=== PATIENT | female | born 1960 | race Caucasian/White ===

== ENCOUNTER 2021-04-02 00:17 | Inpatient (IN) | payer OTHER ==
[~2021-04-02] VITALS: Ht 152.4 cm; Wt 45.8 kg
[2021-04-02] MEDS ORDERED: ALBU1.25 NEB (00:25)
[2021-04-02] MEDS ORDERED: PROV108A INH (00:25)
[2021-04-02] MEDS ORDERED: dexameTHASONE 20MG/5ML VIAL (J1100 PER 1MG) IV ONE (01:10)
--- NOTE | 2021-04-02 01:24 | REPVR ---
PROCEDURE INFORMATION: Exam: XR Chest Exam date and time: 04/02/2021 12:52 AM Age: 60 years old Clinical indication: Cough and dyspnea. TECHNIQUE: Imaging protocol: XR of the chest. Views: 1 view. COMPARISON: No relevant prior studies available. FINDINGS: Lungs: Unremarkable. No consolidation. No pulmonary edema. Pleural spaces: Unremarkable. No pleural effusion. No pneumothorax. Heart/Mediastinum: Unremarkable. No cardiomegaly. Vasculature: There are atherosclerotic calcifications of the aortic arch. Bones/joints: Unremarkable. IMPRESSION: No acute findings. Electronically signed by: Jose Armando Loya On 04/02/2021 01:24:08 AM
[2021-04-02] MEDS: COMBIVENT RESPIMAT 100-20MCG INHALER 4GM INH SCH ×3 (01:31→02:05)
[2021-04-02 01:39] LABS: BASO # 0.1 10^3/uL (0.0-0.2); BASO % 0.6 % (0.0-1.0); EOS # 0.2 10^3/uL (0.0-0.5); EOS % 2.1 % (0.0-3.0); HEMATOCRIT 43.8 % (36.0-47.0); HEMOGLOBIN 14.4 g/dl (12.0-15.5); LYMPH % 12.5 % (24.0-44.0); MEAN CORPUSCULAR HEMOGLOBIN 32.2 pg (27.0-33.0); MEAN CORPUSCULAR HGB CONC 32.9 g/dl (32.0-36.5); MONO # 0.7 10^3/uL (0.0-0.8); MONO % 8.1 % (2.0-8.0); NEUTROPHILS # 6.2 10^3/uL (1.5-8.5); NEUTROPHILS % 76.5 % (36.0-66.0); PLATELET COUNT, AUTOMATED 213 10^3/uL (150-450); RED BLOOD COUNT 4.47 10^6/uL (4.00-5.40); WHITE BLOOD COUNT 8.1 10^3/uL (4.0-10.0)
[2021-04-02 01:51] LABS: ABG BASE EXCESS -2.5 (-2.0-2.0); ABG HCO3 23.9 MEQ/L (22.0-26.0); ABG O2 SATURATION 94.6 % (95.0-99.0); ABG PARTIAL PRESSURE CO2 47.1 mmHg (35.0-45.0); ABG PARTIAL PRESSURE O2 78.8 mmHg (75.0-100.0); ABG STANDARD HCO3 22.3 MEQ/L (22.0-26.0); ABG TOTAL CO2 25.3 MEQ/L (23.0-31.0); ABG pH (ARTERIAL) 7.323 UNITS (7.350-7.450)
[2021-04-02 02:02] LABS: CK-MB VALUE MASS 2.8 NG/ML (<3.6); CPK CREATINE PHOSPHOKINASE 48 U/L (26-192); MB/CK RELATIVE INDEX 5.83 (< OR =4)
[2021-04-02 02:03] LABS: ALBUMIN 3.5 GM/DL (3.2-5.2); ALT/SGPT 23 U/L (12-78); BILIRUBIN,DIRECT 0.2 MG/DL (0.0-0.2); BILIRUBIN,TOTAL 0.6 MG/DL (0.2-1.0); BLOOD UREA NITROGEN 6 MG/DL (7-18); CALCIUM LEVEL 9.1 MG/DL (8.8-10.2); CARBON DIOXIDE LEVEL 28 MEQ/L (21-32); CHLORIDE LEVEL 97 MEQ/L (98-107); CREATININE FOR GFR 0.45 MG/DL (0.55-1.30); GLOMERULAR FILTRATION RATE > 60.0 (>45); GLUCOSE, FASTING 82 MG/DL (70-100); NT-PRO BNP 1438 PG/ML (<125); POTASSIUM SERUM 4.6 MEQ/L (3.5-5.1); SODIUM LEVEL 133 MEQ/L (136-145); TOTAL PROTEIN 7.2 GM/DL (6.4-8.2)
[2021-04-02 02:24] LABS: TROPONIN I < 0.02 NG/ML (< 0.10)
[2021-04-02] MEDS ORDERED: FUROSEMIDE 40MG/4ML VIAL (J1940) IV ONE (04:40)
[2021-04-02] MEDS ORDERED: AZITHROMYCIN 250MG TABLET PO ONE (04:45)
[2021-04-02] MEDS ORDERED: D-ME1CAP36 PO (05:02)
[2021-04-02] MEDS ORDERED: TREL1AER INH (05:02)
[2021-04-02] MEDS ORDERED: MUCI30TA5 PO (05:02)
[2021-04-02] MEDS ORDERED: PROAAER10 INH (05:02)
[2021-04-02] MEDS ORDERED: ERGO500029 PO (05:02)
[2021-04-02] MEDS ORDERED: ALBU83IN INH (05:02)
[2021-04-02] MEDS ORDERED: HOME MED LIST COMPLETE! XX SCH (05:05)
--- NOTE | 2021-04-02 05:05 | HPEPDOC ---
General Date of Admission 04/02/21 Date of Service: Apr 02, 2021 Chief Complaint The patient is a 60-year-old female admitted with a reason for visit of Shortness Of Breath. Source: Patient History of Present Illness Becky pat is 60-year-old female with significant medical history of COPD who presents with complaints of SOB x1 week. Pt endorses associated conte, sinus c ongestion, sore throat, productive cough, and malaise past week. Patient reports that her "whole family has had a cold" recently. Patient reports that she has albuterol inhaler at home for her COPD and has had no improvement with the shortness of breath. Patient reports that she has been taking Mucinex at home and this is helped but when she ran out today noticeable difference with her dyspnea. Patient does endorse dyspnea on exertion. She reports that she does not have home oxygen at baseline; she reports that she had Covid in July and described worsening wheezing episodes since then however not as short of breath as she has now. Upon arrival to ED patient found to have SPO2 83% on room air. Patient arrived tachycardic 110 which improved with application of nasal cannula for SPO2 94% HR 94 on 2 L nasal cannula. Patient ABG did showed pH 7.32 with PCO2 47.1. Patient also with elevated BNP 1438. Chest x-ray nonacute. Patient afebrile without leukocytosis. Pt denies palpitations, chest pain, n/v/d, abdominal pain, weakness, sensory changes or syncope. Patient does endorse bilateral pedal edema; she reports this is been ongoing since she had Covid in July and she describes worse swelling past week. Of note, PCR positive for human rhinovirus/enterovirus. Patient will be admitted for further evaluation management presenting concerns. Home Medications Scheduled Ergocalciferol (Vitamin D2) (Vitamin D2) 50,000 Units Cap, 50,000 UNITS PO QWEEK, (Reported) WEDNESDAY MORNING Fluticasone/Umeclidin/Vilanter (Trelegy Ellipta 100-62.5-25) 1 Each Blst.w.dev, 1 PUFF INH BID, (Reported) Guaifenesin/Dextromethorphan (Mucinex Dm ER 600-30 mg Tablet) 1 Each Tab.er.12h, 1 TAB PO BID, (Reported) Scheduled PRN Albuterol Sulf (Albuterol Sulfate) 2.5 Mg/3 Ml Vial.neb, 2.5 MG INH Q4H PRN for SHORTNESS OF BREATH, (Reported) Albuterol Sulfate (Proair Hfa) 8.5 Gm Hfa.aer.ad, 2 PUFF INH Q4H PRN for SHORTNESS OF BREATH, (Reported) D-Methorphan/PE/Acetaminophen (Daytime Cold-Flu Relief Sftgl) 10 Mg-5 Mg-325 Mg Capsule, 2 CAP PO QID PRN for COLD SYMPTOMS, (Reported) Allergies Coded Allergies: tetracycline (Verified Allergy, Severe, anaphylaxsis, 04/02/21) Past Medical History Medical History COPD, tobacco use 1 pack/day Surgical History Tubal ligation, described? Femoral leg clot Family History Significant Family History: Cancer Fatherdeceased colon cancer, motherdeceased tuberculosis Social History * Smoker: current smoker, greater than 1 pack/day Alcohol: Denies Drugs: denies Recent Travel/Sick Contacts: Reports: Recent sick contacts (Family +:); Denies: Recent travel Psychosocial History: No pertinent psych hx Patiently recently moved from [place] A-FIB/[facility] A-FIB History Current/History of A-Fib/PAF?: No Current PO Anticoag Therapy: No Review of Systems Constitutional: Reports: Malaise, Fatigue; Denies: Chills, Fever, Night Sweats Eyes: Denies: Pain, Vision change ENT: Denies: Head Aches, Ear Pain, Dysphagia Skin: Denies: Rash, Lesions, Breakdown Pulmonary: Reports: Dyspnea, Cough Cardiovascular: Reports: Edema; Denies: Chest Pain, Palpitations, Orthopnea, Paroxysmal Noc. Dyspnea, Lt Headedness Gastrointestinal: Denies: Nausea, Vomiting, Abdominal Pain, Diarrhea Genitourinary: Denies: Dysuria, Frequency, Incontinence, Retention Hematologic: Denies: Bruising, Bleeding Excessively Musculoskeletal: Denies: Neck Pain, Back Pain, Joint Pain, Muscle Pain, Spasms Neurological: Denies: Weakness, Numbness, Change in speech, Confusion Psych: Reports: Mood Normal; Denies: Depression, Memory Issues Physical Examination General Exam: Positive: Alert, Cooperative, No Acute Distress Eye Exam: Positive: PERRLA, Conjunctiva & lids normal, EOMI; Negative: Sclera icteric ENT Exam: Positive: Atraumatic, Mucous membr. moist/pink, Pharynx Normal Neck Exam: Positive: Supple; Negative: JVD, thyromegaly Chest Exam: Positive: Rhonchi Heart Exam: Positive: Tachycardic, Regular Rhythm, Normal S1, Normal S2; Negative: Murmurs, Rubs Telemetry: Positive: Sinus, Tachycardia Abdomen Exam: Positive: Normal bowel sounds, Soft; Negative: Tenderness, Hepatospenomegaly Extremity Exam: Positive: Edema (1+ pedal edema), Normal pulses; Negative: Clubbing, Cyanosis Skin Exam: Positive: Nl turgor and temperature; Negative: Breakdown, Lesion Neuro Exam: Positive: Normal Gait, Normal Speech, Cranial Nerves 3-12 NL, Reflexes 2+ Psych Exam: Positive: Mental status NL, Mood NL, Oriented x 3 Vital Signs Vital Signs Date Time Temp Pulse Resp B/P (MAP) Pulse Ox O2 Delivery O2 Flow Rate FiO2 04/02/21 02:47 101 92 04/02/21 02:45 162/87 (112) 04/02/21 02:40 24 Nasal Cannula 04/02/21 02:36 2.0 93 04/02/21 00:18 98.6 Laboratory Data Labs 24H Laboratory Tests 2 04/02/21 00:46: Immature Granulocyte % (Auto) 0.2, Neutrophils (%) (Auto) 76.5H, Lymphocytes (%) (Auto) 12.5L, Monocytes (%) (Auto) 8.1H, Eosinophils (%) (Auto) 2.1, Basophils (%) (Auto) 0.6, Neutrophils # (Auto) 6.2, Lymphocytes # (Auto) 1.0L, Monocytes # (Auto) 0.7, Eosinophils # (Auto) 0.2, Basophils # (Auto) 0.1, Nucleated Red Blood Cells % (auto) 0.0, Anion Gap 8, Glomerular Filtration Rate > 60.0, Lactic Acid Level 1.7, Calcium Level 9.1, Total Bilirubin 0.6, Direct Bilirubin 0.2, Aspartate Amino Transf (AST/SGOT) 29, Alanine Aminotransferase (ALT/SGPT) 23, Alkaline Phosphatase 92, Total Creatine Kinase 48, Creatine Kinase MB 2.8, Creatine Kinase MB Relative Index 5.83H, Troponin I < 0.02, UO-Gbp-N-Type Natriuretic Peptide 1438H, Total Protein 7.2, Albumin 3.5, Albumin/Globulin Ratio 0.9L 04/02/21 01:39: Blood Gas Bicarbonate Standard 22.3, Arterial Blood pH 7.323L, Arterial Blood Partial Pressure CO2 47.1H, Arterial Blood Partial Pressure O2 78.8, Arterial Blood Total CO2 25.3, Arterial Blood HCO3 23.9, Arterial Blood Base Excess - 2.5L, Arterial Blood Oxygen Saturation 94.6L CBC/BMP Laboratory Tests 04/02/21 00:46 Microbiology Microbiology 04/02/21 Respiratory Virus Panel (PCR) ([facility]) - Final, Complete Human Rhinovirus/Enterovirus 04/02/21 Blood Culture, Received Pending 04/02/21 Blood Culture, Received Pending Assessment/Plan 1. Acute respiratory failure with hypoxia and hypercapnia secondary to COPD exacerbation: In setting of human rhinovirus/enterovirus and current smoking. Monitor patient for signs symptoms of infection Telemetry and continuous pulse -Oxygen as needed to keep spo2 88-92% Scheduled and as needed breathing treatment Antitussives and mucolytic's Scheduled Solu-Medrol Empiric coverage. Consider expanding coverage accordingly. Procalcitonin ordered for a.m. A.m. lab 2. Elevated BNP and bilateral pedal edema: Patient denies history of CHF, not on diuretics. BNP 1438. -Patient given Lasix trial in ED. -Will order echo for a.m. -Possible contribution mild hypervolemia contributing to above. Consider differential. 3. Tobacco use: Encourage self DVT prophylaxis: Shanique score 2, SCDs ordered CODE STATUS: Full code, surrogate decision-maker identified as: Patient's daughter Josey. Disposition planning: Home pending clinical improvement Plan / VTE VTE Prophylaxis Ordered?: Yes MATTHEW LIM NP Apr 02, 2021 05:00
--- OUTSIDE RECORDS SUMMARY | 2021-04-02 05:07 | CCD ---
Author Author [facility] Address Unknown Phone Unavailable Care Team Providers Care Paste Up Artist Name Role Phone Aleksandr, H Jayshree PLANTING MATERIAL CARRIER Unavailable Unavailable Aleksandr, H Jayshree PLANTING MATERIAL CARRIER Unavailable Unavailable Aleksandr, H Jayshree PLANTING MATERIAL CARRIER Unavailable Unavailable Aleksandr, H Jayshree PLANTING MATERIAL CARRIER Unavailable Unavailable Aleksandr, H Jayshree PLANTING MATERIAL CARRIER Unavailable Unavailable Aleksandr, H Jayshree PLANTING MATERIAL CARRIER Unavailable Unavailable Aleksandr, H Jayshree PLANTING MATERIAL CARRIER Unavailable Unavailable Aleksandr, H Jayshree PLANTING MATERIAL CARRIER Unavailable Unavailable Aleksandr, H Jayshree PLANTING MATERIAL CARRIER Unavailable Unavailable Aleksandr, H Jayshree PLANTING MATERIAL CARRIER Unavailable Unavailable Aleksandr, H Jayshree PLANTING MATERIAL CARRIER Unavailable Unavailable Aleksandr, H Jayshree PLANTING MATERIAL CARRIER Unavailable Unavailable Aleksandr, H Jayshree PLANTING MATERIAL CARRIER Unavailable Unavailable Aleksandr, H Jayshree PLANTING MATERIAL CARRIER Unavailable Unavailable Aleksandr, H Jayshree PLANTING MATERIAL CARRIER Unavailable Unavailable Aleksandr, H Jayshree PLANTING MATERIAL CARRIER Unavailable Unavailable Aleksandr, H Jayshree PLANTING MATERIAL CARRIER Unavailable Unavailable Aleksandr, H Jayshree PLANTING MATERIAL CARRIER Unavailable Unavailable Aleksandr, H Jayshree PLANTING MATERIAL CARRIER Unavailable Unavailable Aleksandr, H Jayshree PLANTING MATERIAL CARRIER Unavailable Unavailable Aleksandr, H Jayshree PLANTING MATERIAL CARRIER Unavailable Unavailable Aleksandr, H Jayshree PLANTING MATERIAL CARRIER Unavailable Unavailable Aleksandr, H Jayshree PLANTING MATERIAL CARRIER Unavailable Unavailable Aleksandr, H Jayshree PLANTING MATERIAL CARRIER Unavailable Unavailable Aleksandr, H Jayshree PLANTING MATERIAL CARRIER Unavailable Unavailable Aleksandr, H Jayshree PLANTING MATERIAL CARRIER Unavailable Unavailable Aleksandr, H Jayshree PLANTING MATERIAL CARRIER Unavailable Unavailable Aleksandr, H Jayshree PLANTING MATERIAL CARRIER Unavailable Unavailable Aleksandr, H Jayshree PLANTING MATERIAL CARRIER Unavailable Unavailable Aleksandr, H Jayshree PLANTING MATERIAL CARRIER Unavailable Unavailable Aleksandr, H Jayshree PLANTING MATERIAL CARRIER Unavailable Unavailable Aleksandr, H Jayshree PLANTING MATERIAL CARRIER Unavailable Unavailable Aleksandr, H Jayshree PLANTING MATERIAL CARRIER Unavailable Unavailable Aleksandr, H Jayshree PLANTING MATERIAL CARRIER Unavailable Unavailable Aleksandr, H Jayshree PLANTING MATERIAL CARRIER Unavailable Unavailable Aleksandr, H Jayshree PLANTING MATERIAL CARRIER Unavailable Unavailable Aleksandr, H Jayshree PLANTING MATERIAL CARRIER Unavailable Unavailable Aleksandr, H Jayshree PLANTING MATERIAL CARRIER Unavailable Unavailable Aleksandr, H Jayshree PLANTING MATERIAL CARRIER Unavailable Unavailable Aleksandr, H Jayshree PLANTING MATERIAL CARRIER Unavailable Unavailable Aleksandr, H Jayshree PLANTING MATERIAL CARRIER Unavailable Unavailable Aleksandr, H Jayshree PLANTING MATERIAL CARRIER Unavailable Unavailable Aleksandr, H Jayshree PLANTING MATERIAL CARRIER Unavailable Unavailable Aleksandr, H Jayshree PLANTING MATERIAL CARRIER Unavailable Unavailable Aleksandr, H Jayshree PLANTING MATERIAL CARRIER Unavailable Unavailable Aleksandr, H Jayshree PLANTING MATERIAL CARRIER Unavailable Unavailable Aleksandr, H Jayshree PLANTING MATERIAL CARRIER Unavailable Unavailable Aleksandr, H Jayshree PLANTING MATERIAL CARRIER Unavailable Unavailable Aleksandr, H Jayshree PLANTING MATERIAL CARRIER Unavailable Unavailable Aleksandr, H Jayshree PLANTING MATERIAL CARRIER Unavailable Unavailable Aleksandr, H Jayshree PLANTING MATERIAL CARRIER Unavailable Unavailable Aleksandr, H Jayshree PLANTING MATERIAL CARRIER Unavailable Unavailable Aleksandr, H Jayshree PLANTING MATERIAL CARRIER Unavailable Unavailable Aleksandr, H Jayshree PLANTING MATERIAL CARRIER Unavailable Unavailable Aleksandr, H Jayshree PLANTING MATERIAL CARRIER Unavailable Unavailable Aleksandr, H Jayshree PLANTING MATERIAL CARRIER Unavailable Unavailable Aleksandr, H Jayshree PLANTING MATERIAL CARRIER Unavailable Unavailable Aleksandr, H Jayshree PLANTING MATERIAL CARRIER Unavailable Unavailable Aleksandr, H Jayshree PLANTING MATERIAL CARRIER Unavailable Unavailable Re-disclosure Warning The records that you are about to access may contain information from federally-assisted alcohol or drug abuse programs. If such information is present, then the following federally mandated warning applies: This information has been disclosed to you from records protected by federal confidentiality rules (42 CFR part 2). The federal rules prohibit you from making any further disclosure of this information unless further disclosure is expressly permitted by the written consent of the person to whom it pertains or as otherwise permitted by 42 CFR part 2. A general authorization for the release of medical or other information is NOT sufficient for this purpose. The Federal rules restrict any use of the information to criminally investigate or prosecute any alcohol or drug abuse patient.The records that you are about to access may contain highly sensitive health information, the redisclosure of which is protected by Article 27-F of the [facility] Public Health law. If you continue you may have access to information: Regarding HIV / AIDS; Provided by facilities licensed or operated by the [facility] Office of Mental Health; or Provided by the [facility] Office for People With Developmental Disabilities. If such information is present, then the following [facility] mandated warning applies: This information has been disclosed to you from confidential records which are protected by state law. State law prohibits you from making any further disclosure of this information without the specific written consent of the person to whom it pertains, or as otherwise permitted by law. Any unauthorized further disclosure in violation of state law may result in a fine or skilled nursing sentence or both. A general authorization for the release of medical or other information is NOT sufficient authorization for further disc losure. Encounters Encounter Providers Location Date Indications Data Source(s ) Outpatient Attender: Jayshree Pateleferrer: Jayshree Brandon NP 11/05/2020 03:04:00 PM EDT - 11/05/2020 04:55:00 PM EDT [facility] Medications Medication Brand Name Start Date Product Form Dose Route Admi nistrative Instructions Pharmacy Instructions Status Indications Reaction Description Data Source(s) Sszntxsopmq-Omdyljvjp-Tmkgmkwd (Trelegy Ellipta) 100-62.5-25 mcg blister with device 11/05/2020 04:40:06 PM EDT 1 INH active [facility] Furosemide 40 MG Oral Tablet Furosemide 11/05/2020 04:39:45 PM EDT 40 MG active [facility] Potassium Chloride Potassium Chloride (K sharmin-Con M20) 20 mEq tablet,ER particles/crystals Potassium Chloride (Klor-Con M20) 20 mEq tablet,ER particles/crystals 11/05/2020 03:35:44 PM EDT 20 MEQ act melissa [facility] Furosemide 40 MG Oral Tablet Furosemide 11/05/2020 03:35:28 PM EDT 40 MG completed [facility] Fluticasone Propion-Salmeterol 11/05/2020 03:34:37 PM EDT 1 INH active [facility] Aspirin 81 MG Chewable Tablet Aspirin 11/05/2020 03:34:15 PM EDT 81 MG active [facility] atorvastatin 40 MG Oral Tablet Atorvastatin Atorvastatin 11/05/2020 03:33:53 PM EDT 40 MG active [facility] Kempmeeneoa-Qavewvtxa-Nnegyrsb (Trelegy Ellipta) 100-62.5-25 mcg blister with device 11/05/2020 03:33:33 PM EDT 1 INH completed [facility] Insurance Providers Payer name Policy type / Coverage type Policy ID Covered libertarian ID Covered libertarian's relationship to holguin Policy Holguin Plan Information FORMERLY [facility] [id number] Problems, Conditions, and Diagnoses No Information Surgeries/Procedures No Information Results ID Date Data Source [id number] 11/05/2020 03:27:00 PM EDT [facility] Patient Name: TESS QUICK : 1960 Sex: F Pt Unit #: [id number] [facility] Provider: Visit Date/Time: 11/05/20 Primary Insurance: R/[facility] Secondary Insurance: Self Pay Intake Vital Signs 11/05/20 15:27 Current Height 5 ft 1 in Current Weight 88 lb 0.6 oz Weight Measurement Method Standing Scale BMI 16.6 BP 118/60 Blood Pressure Location Lt brachial Position Sitting Respiration 18 Pulse 80 Pulse Strength Normal Pulse Source Pulse Oximeter Oxygen Delivery Method room air Intake Visit Reasons: Encounter to Establish Care Nurse Note: PT IS HERE TODAY A NEW PT PT WAS RECENTLY IN THE HOSPITAL IN [place] FOR COVID AND PNEUMONIA PT STATES SHE RECENTLY MOVED HERE WITH HER SISTER DUE TO LOSS OF JOB PT STILL USES O2 AT NIGHT PT IS ON 2.5L Is patient in pain?: No Allergies tetracycline Allergy (Severe, Unverified 11/05/20 15:32) Anaphylaxis nickel Allergy (Intermediate, Unverified 11/05/20 15:33) Hives No Known Food Allergies Allergy (Unverified 11/05/20 15:33) Medications - Last Reconciled 11/05/20 by Jayshree Brandon NP aspirin 81 mg PO QDAY atorvastatin 40 mg PO QPM fluticasone propion-salmeterol 250-50 mcg/dose 1 inh inhalation BID dsdyzdmjtkb-dzgufoovp-tniidrit 100-62.5-25 mcg (Trelegy Ellipta) 1 inh inhalation Q24H furosemide 40 mg PO QDAY potassium chloride ER (Klor-Con M) 20 mEq PO QDAY Fall Risk History of falls: No Ambulatory Aid:: None Gait/Transferring:: Normal Medications:: No High Risk Medications PHQ-2/9 Over the last 2 weeks, how often have you been bothered by any of the following problems? 1. Little interest or pleasure in doing things: several days 2. Feeling down, depressed, or hopeless: not at all Total score: 1 3. Trouble falling or staying asleep, or sleeping too much: not at all 4. Feeling tired or having little energy: more than half the days 5. Poor appetite or overeating: more than half the days 6. Feeling bad about yourself - or that you are a failure or have let yourself and your family down:not at all 7. Trouble concentrating on things, such as reading the newspaper or watching television: not at all 8. Moving or speaking so slowly that other people could have noticed? - Or the opposite - being so fidgety or restless that you have been mov ing around a lot more than usual: not at all 9. Thoughts that you would be better off or of hurting yourself in some way: not at all Total score: 5 If you checked off any problems, how difficult have these problems made it for you to do your work, take care of things at home, or get along with other people?: somewhat difficult Source: Developed by Drs. Toney Power, Elaina Sawyer, Braydon Chaudhari and colleagues, with an educational regina from [employer]. HIV Testing Offer - ages 13-64 HIV testing Offer: No Requirement for HIV testing offer been met?: Patient reports past refusal Hep C Testing Offered: No Hep C Requirement met: Refuses today SBIRT Annual Questionnaire Are you currently in recovery for alcohol or substance use?: No How many times in the past year have you had 4 or more drinks in a day?: None How many times in the past year have you used a recreational drug or used a prescription medication for nonmedical reasons?: None Coronavirus Screening Screening Are you currently positive or on isolation for COVID ?: No Do you have any NEW signs of one or more of the following?: no symptoms Do you have NEW signs of at least two of the following?: no symptoms HPI Additional HPI HPI Details: HERE TO ESTABLISH NEW PATIENT. RECENTLY MOVED HERE FROM [place] TO LIVE WITH FAMILY. D/C'D FROM [facility] IN [place] ON 10/02/20 FOR COVID PNEUMONIA. HAS HOME O2 @ 2.5 LPM. HAS SEEN [facility] IN [place]. IS ON TRELOGY FOR COPD. HAD O2 AT HOME PRIOR TO COVID PNEUMONIA Review of Systems Const All systems reviewed are unremarkable except as noted in HPI and below Denies chills, Reports fatigue, Denies fever(s) and Reports headache(s) (DAILY BETWEEN 8-9AM. GOES AWAY WITH IBUPROFEN) Eyes Denies blurry vision and Denies diplopia ENT Denies dizziness, Reports headache(s) (DAILY BETWEEN 8-9AM. GOES AWAY WITH IBUPROFEN), Denies nasal congestion, Denies nasal discharge, Denies post nasal drip and Denies sore throat Card Denies chest pain, Denies dyspnea and Reports dyspnea on exertion Resp Reports cough (OCCASIONALLY PRODUCTIVE. "FOR A LONG TIME"), Denies dyspnea and Reports dyspnea on exertion GI Denies constipation, Denies heartburn, Denies diarrhea, Denies nausea and Denies vomiting Genitourinary: Reports urinary urgency; Denies dysuria or urinary frequency Musc Denies back pain, Denies myalgias and Denies arthralgias Skin/Breast Denies lesions and Denies rash Neuro Denies dizziness, Reports headache(s) (DAILY BETWEEN 8-9AM. GOES AWAY WITH IBUPROFEN) and Denies paresthesias Psych Denies anxiety, Denies depression, Denies homicidal ideation and Denies suicidal ideation Endo Reports fatigue Amari/Lymph Denies easy bleeding and Denies easy bruising Aller/Immun Reports system reviewed and no additional complaints, except as documented and Denies seasonal rhinorrhea Exam Const General: cooperative, comfortable, no acute distress and well developed Nutritional Appearance: thin Orientation: alert and oriented x3 HENMT Head: normal to inspection Ears: hearing grossly normal bilaterally, TM normal on the right and TM normal on the left General nose exam: external nose normal Face and sinus: normal facial exam Throat: posterior oropharynx normal Eyes Eyelids: eyelids normal Conjunctivae: conjunctivae normal Sclera: sclerae normal Neck Neck: normal visual inspection and no lymphadenopathy Neck mass: No Thyroid: thyroid normal Carotids: normal carotid upstroke Resp Effort Inspection: normal respiratory effort, able to speak in complete sentences and cough Auscultation: clear to auscultation bilaterally Cardio Palpation: normal PMI Rate: regular rate Rhythm: regular rhythm Heart Sounds: S1 normal and S2 normal Pulses: normal peripheral pulses GI Inspection: Yes normal to inspection Palpation: soft Percussion: normal to percussion Auscultation: normal bowel sounds General: No CVA tenderness Musc Cervical Spine: normal cervical lordosis and cervical ROM normal Thoracic/Lumbar Spine: thoracic and lumbar spine normal to inspection and thoraco-lumbar ROM normal Skin Lesions: no lesions Rashes: no rashes Neuro General: patient alert, patient oriented x3 and moves all extremities Cranial Nerves: CN's II-XII intact bilaterally Cognition: normal cognition Speech: speech normal Gait: normal gait Extrem General: normal to inspection, no edema and no pedal edema Psych Appearance: grossly normal Mental Status: mental status grossly normal Speech and Movement: speech and movement normal Mood: congruent mood Affect: normal affect Attitude: cooperative Thought Process: normal Thought Content: normal Insight: insight good Judgment: judgment good Other: PHQ-9 SCORE 5 RICHARD SCORE 10 Quality Reporting Depression/Bipolar (159/160/161/169/177) Total score: 5 Assessment Plan Assessment Plan (1) Encounter to establish care with new doctor: Code(s): Z76.89 - Persons encountering health services in other specified circumstances (2) Hyperlipidemia: Code(s): E78.5 - Hyperlipidemia, unspecified (3) COPD (chronic obstructive pulmonary disease): Status: Acute Code(s): J44.9 - Chronic obstructive pulmonary disease, unspecified SNOMED Code(s): 52286249 Category: Medical Plan: CONT HOME O2 UNTIL WE GET RECORDS FROM [facility] IN [place]. CONT CURRENT MEDS. LABS PRIOR TO NEXT OV. WILL GET RECORDS FROM PCP HOSPITAL IN [place] RTC 2 MONTHS Orders: Orders CMP Today Z09 - Encounter for follow-up examination after completed treatment for conditions other than malignant neoplasm LIPID PANEL 3 Months E78.5 - Hyperlipidemia, unspecified TSH w/ reflex to Free T4 Today E03.9 - Hypothyroidism, unspecified CBC W AUTO DIFF Today Z09 - Encounter for follow-up examination after completed treatment for conditions other than malignant neoplasm Vitamin D 25-OH 3 Months E55.9 - Vitamin D deficiency, unspecified Medications: New 2 furosemide 40 mg PO QDAY 90 tabs 3RF lpgjivsossu-xicgcgehh-uqktiwbm 100-62.5-25 mcg (Trelegy Ellipta) 1 inh inhalation Q24H 60 ea 3RF Coding [place] [address] New Pt Comprehensive Com Patient Type Established History Comprehensive Exam Comprehensive Medical Decision Making High Complexity Diagnoses Encounter to establish care with new doctor Z76.89 Hyperlipidemia E78.5 COPD (chronic obstructive pulmonary disease) J44.9 Time Spent (min) 50 <Electronically signed by Jayshree Brandon NP> 11/05/20 4153 Name Value Range Interpretation Code Description Data Yazmin rce(s) Supporting Document(s) Procedure Social History No Information
--- OUTSIDE RECORDS SUMMARY | 2021-04-02 05:31 | CCD ---
Author Author [facility] Address Unknown Phone Unavailable Care Team Providers Care Operations Superintendent Name Role Phone Aleksandr, H Jayshree CONTINUUM OF CARE MANAGER Unavailable Unavailable Aleksandr, H Jayshree CONTINUUM OF CARE MANAGER Unavailable Unavailable Aleksandr, H Jayshree CONTINUUM OF CARE MANAGER Unavailable Unavailable Aleksandr, H Jayshree CONTINUUM OF CARE MANAGER Unavailable Unavailable Aleksandr, H Jayshree CONTINUUM OF CARE MANAGER Unavailable Unavailable Aleksandr, H Jayshree CONTINUUM OF CARE MANAGER Unavailable Unavailable Aleksandr, H Jayshree CONTINUUM OF CARE MANAGER Unavailable Unavailable Aleksandr, H Jayshree CONTINUUM OF CARE MANAGER Unavailable Unavailable Aleksandr, H Jayshree CONTINUUM OF CARE MANAGER Unavailable Unavailable Aleksandr, H Jayshree CONTINUUM OF CARE MANAGER Unavailable Unavailable Aleksandr, H Jayshree CONTINUUM OF CARE MANAGER Unavailable Unavailable Aleksandr, H Jayshree CONTINUUM OF CARE MANAGER Unavailable Unavailable Aleksandr, H Jayshree CONTINUUM OF CARE MANAGER Unavailable Unavailable Aleksandr, H Jayshree CONTINUUM OF CARE MANAGER Unavailable Unavailable Aleksandr, H Jayshree CONTINUUM OF CARE MANAGER Unavailable Unavailable Aleksandr, H Jayshree CONTINUUM OF CARE MANAGER Unavailable Unavailable Aleksandr, H Jayshree CONTINUUM OF CARE MANAGER Unavailable Unavailable Aleksandr, H Jayshree CONTINUUM OF CARE MANAGER Unavailable Unavailable Aleksandr, H Jayshree CONTINUUM OF CARE MANAGER Unavailable Unavailable Aleksandr, H Jayshree CONTINUUM OF CARE MANAGER Unavailable Unavailable Aleksandr, H Jayshree CONTINUUM OF CARE MANAGER Unavailable Unavailable Aleksandr, H Jayshree CONTINUUM OF CARE MANAGER Unavailable Unavailable Aleksandr, H Jayshree CONTINUUM OF CARE MANAGER Unavailable Unavailable Aleksandr, H Jayshree CONTINUUM OF CARE MANAGER Unavailable Unavailable Aleksandr, H Jayshree CONTINUUM OF CARE MANAGER Unavailable Unavailable Aleksandr, H Jayshree CONTINUUM OF CARE MANAGER Unavailable Unavailable Aleksandr, H Jayshree CONTINUUM OF CARE MANAGER Unavailable Unavailable Aleksandr, H Jayshree CONTINUUM OF CARE MANAGER Unavailable Unavailable Aleksandr, H Jayshree CONTINUUM OF CARE MANAGER Unavailable Unavailable Aleksandr, H Jayshree CONTINUUM OF CARE MANAGER Unavailable Unavailable Aleksandr, H Jayshree CONTINUUM OF CARE MANAGER Unavailable Unavailable Aleksandr, H Jayshree CONTINUUM OF CARE MANAGER Unavailable Unavailable Aleksandr, H Jayshree CONTINUUM OF CARE MANAGER Unavailable Unavailable Aleksandr, H Jayshree CONTINUUM OF CARE MANAGER Unavailable Unavailable Aleksandr, H Jayshree CONTINUUM OF CARE MANAGER Unavailable Unavailable Aleksandr, H Jayshree CONTINUUM OF CARE MANAGER Unavailable Unavailable Aleksandr, H Jayshree CONTINUUM OF CARE MANAGER Unavailable Unavailable Aleksandr, H Jayshree CONTINUUM OF CARE MANAGER Unavailable Unavailable Aleksandr, H Jayshree CONTINUUM OF CARE MANAGER Unavailable Unavailable Aleksandr, H Jayshree CONTINUUM OF CARE MANAGER Unavailable Unavailable Aleksandr, H Jayshree CONTINUUM OF CARE MANAGER Unavailable Unavailable Aleksandr, H Jayshree CONTINUUM OF CARE MANAGER Unavailable Unavailable Aleksandr, H Jayshree CONTINUUM OF CARE MANAGER Unavailable Unavailable Aleksandr, H Jayshree CONTINUUM OF CARE MANAGER Unavailable Unavailable Aleksandr, H Jayshree CONTINUUM OF CARE MANAGER Unavailable Unavailable Aleksandr, H Jayshree CONTINUUM OF CARE MANAGER Unavailable Unavailable Aleksandr, H Jayshree CONTINUUM OF CARE MANAGER Unavailable Unavailable Aleksandr, H Jayshree CONTINUUM OF CARE MANAGER Unavailable Unavailable Aleksandr, H Jayshree CONTINUUM OF CARE MANAGER Unavailable Unavailable Aleksandr, H Jayshree CONTINUUM OF CARE MANAGER Unavailable Unavailable Aleksandr, H Jayshree CONTINUUM OF CARE MANAGER Unavailable Unavailable Aleksandr, H Jayshree CONTINUUM OF CARE MANAGER Unavailable Unavailable Aleksandr, H Jayshree CONTINUUM OF CARE MANAGER Unavailable Unavailable Aleksandr, H Jayshree CONTINUUM OF CARE MANAGER Unavailable Unavailable Aleksandr, H Jayshree CONTINUUM OF CARE MANAGER Unavailable Unavailable Aleksandr, H Jayshree CONTINUUM OF CARE MANAGER Unavailable Unavailable Aleksandr, H Jayshree CONTINUUM OF CARE MANAGER Unavailable Unavailable Aleksandr, H Jayshree CONTINUUM OF CARE MANAGER Unavailable Unavailable Aleksandr, H Jayshree CONTINUUM OF CARE MANAGER Unavailable Unavailable Re-disclosure Warning The records that [...] is protected by Article 27-F of the [facility] Public Health law. If you continue you may have access to information: Regarding HIV / AIDS; Provided by facilities licensed or operated by the [facility] Office of Mental Health; or Provided by the [facility] Office for People With Developmental Disabilities. If such information is present, then the following [facility] mandated warning applies: This information has been [...] law may result in a fine or nursing home sentence or both. A general authorization for the release of medical or other information is NOT sufficient authorization for further disc losure. Encounters Encounter Providers Location Date Indications Data Source(s ) Outpatient Attender: Jayshree Pateleferrer: Jayshree Brandon NP 11/05/2020 03:04:00 PM EDT - 11/05/2020 04:55:00 PM EDT [facility] Medications Medication Brand Name Start Date Product Form Dose Route Admi nistrative Instructions Pharmacy Instructions Status Indications Reaction Description Data Source(s) Kisqhuuvhyc-Hhwaaxqrn-Mofhdgoh (Trelegy Ellipta) 100-62.5-25 mcg blister with device 11/05/2020 04:40:06 PM EDT 1 INH active [facility] Furosemide 40 MG Oral Tablet Furosemide 11/05/2020 04:39:45 PM EDT 40 MG active [facility] Potassium Chloride Potassium Chloride (K sharmin-Con M20) 20 mEq tablet,ER particles/crystals Potassium Chloride (Klor-Con M20) 20 mEq tablet,ER particles/crystals 11/05/2020 03:35:44 PM EDT 20 MEQ act melissa [facility] Furosemide 40 MG Oral Tablet Furosemide 11/05/2020 03:35:28 PM EDT 40 MG completed [facility] Fluticasone Propion-Salmeterol 11/05/2020 03:34:37 PM EDT 1 INH active [facility] Aspirin 81 MG Chewable Tablet Aspirin 11/05/2020 03:34:15 PM EDT 81 MG active [facility] atorvastatin 40 MG Oral Tablet Atorvastatin Atorvastatin 11/05/2020 03:33:53 PM EDT 40 MG active [facility] Kuhikwznvvc-Jxvahtbcv-Clsjayiw (Trelegy Ellipta) 100-62.5-25 mcg blister with device 11/05/2020 03:33:33 PM EDT 1 INH completed [facility] Insurance Providers Payer name Policy type / Coverage type Policy ID Covered alliance party ID Covered alliance party's relationship to holguin Policy Holguin Plan Information [facility] [id number] Problems, Conditions, and Diagnoses No Information Surgeries/Procedures No Information Results ID Date Data Source [id number] 11/05/2020 03:27:00 PM EDT [facility] Patient Name: TESS QUICK : 1960 Sex: F Pt Unit #: [id number] Location:[facility] Provider: Visit Date/Time: 11/05/20 Primary Insurance: R/[facility] Secondary Insurance: Self Pay Intake Vital Signs [...] PT WAS RECENTLY IN THE [place]OSPITAL IN [place] FOR COVID AND PNEUMONIA PT STATES SHE [...] propion-salmeterol 250-50 mcg/dose 1 inh inhalation BID ahnlwqkxblb-jecbftakl-texaltkg 100-62.5-25 mcg (Trelegy Ellipta) 1 inh inhalation [...] and colleagues, with an educational regina from [employer]. HIV Testing Offer - ages 13-64 HIV [...] ESTABLISH NEW PATIENT. RECENTLY MOVED HERE FROM [place] TO LIVE WITH FAMILY. D/C[facility]D [facility] [place] ON 10/02/20 FOR COVID PNEUMONIA. HAS HOME O2 @ 2.5 LPM. HAS SEEN [facility] IN [place]. IS ON TRELOGY FOR COPD. HAD O2 [...] Chronic obstructive pulmonary disease, unspecified SNOMED Code(s): 04262184 Category: Medical Plan: CONT HOME O2 UNTIL WE GET RECORDS FROM [facility] IN [place]. CONT CURRENT MEDS. LABS PRIOR TO NEXT OV. WILL GET RECORDS FROM PCP HOSPITAL IN [place] RTC 2 MONTHS Orders: Orders CMP Today [...] 40 mg PO QDAY 90 tabs 3RF tzhwyekjjym-becjjoeoe-wnlbsoxl 100-62.5-25 mcg (Trelegy Ellipta) 1 inh inhalation Q24H 60 ea 3RF Coding [place] [address] New Pt Comprehensive Com Patient Type Established History Comprehensive Exam Comprehensive Medical Decision Making High Complexity Diagnoses Encounter to establish care with new doctor Z76.89 Hyperlipidemia E78.5 COPD (chronic obstructive pulmonary disease) J44.9 Time Spent (min) 50 <Electronically signed by Jayshree Brandon NP> 11/05/20 9103 Name Value Range Interpretation Code Description Data Yazmin rce(s) Supporting Document(s) Procedure Social History No Information
[2021-04-02] MEDS: LEVALBUTEROL 1.25 MG/0.5 ML CONCENTRATE NEB NEB SCH ×3 (08:19→19:31)
[2021-04-02] MEDS: IPRATROPIUM 0.02% SOLN 0.5MG 2.5ML NEB NEB SCH ×3 (08:19→19:31)
[2021-04-02] MEDS: methylPREDNISolone 40MG 1ML VIAL IV SCH ×2 (10:16→20:56)
[2021-04-02] MEDS: guaiFENesin ER 600 MG TAB PO SCH ×2 (10:16→20:55)
[2021-04-02 15:45] VITALS: BP 116/77
[2021-04-02] MEDS ORDERED: LORazepam 2 MG TAB PO PRN (16:35)
--- NOTE | 2021-04-02 16:37 | ECGEPIP ---
[facility] - ED Test Date: 2021-04-02 Pat Name: TESS QUICK Department: Room: [place] [address] Gender: Female Desk Clerks Supervisor: ED : 1960 Requested By: Rosalino Guzman Order Number: [id number] Reading MD: Rosalino Conway Measurements Intervals [place] Rate: 96 P: 75 RI: 110 QRS: 65 QRSD: 70 T: -49 QT: 408 QTc: 515 Interpretive Statements Sinus rhythm with short RI Possible Left atrial enlargement POOR R WAVE PROGRESSION ST & T wave abnormality, consider inferior ischemia ST & T wave abnormality, consider anterior ischemia NO PRIORS FOR COMPARISON Electronically Signed on 04-02-2021 16:36:56 EST by Rosalino Conway
[2021-04-02] MEDS ORDERED: ASPIRIN 81MG ENTERIC TABLET PO ONE (16:45)
[2021-04-02 17:35] LABS: CK-MB VALUE MASS < 1.0 NG/ML (<3.6); CPK CREATINE PHOSPHOKINASE 30 U/L (26-192); MB/CK RELATIVE INDEX 3.33 (< OR =4); TROPONIN I < 0.02 NG/ML (< 0.10)
[2021-04-02] MEDS: FOLIC ACID 1 MG TAB PO SCH (18:16)
[2021-04-02] MEDS: MULTIVITAMINS/MINERALS THERAP 1 TAB PO SCH (18:16)
[2021-04-02] MEDS: THIAMINE 100 MG TAB PO SCH (18:16)
[2021-04-02 18:42] VITALS: BP 116/77
[2021-04-02 20:45] VITALS: O2SAT 92
[2021-04-02] MEDS: ACETAMINOPHEN TAB 650MG DOSE (2X325MG) PO PRN (20:57)
[2021-04-02 22:00] VITALS: BP 118/77
[2021-04-03] MEDS: LEVALBUTEROL 1.25 MG/0.5 ML CONCENTRATE NEB NEB SCH ×4 (00:34→19:17)
[2021-04-03] MEDS: IPRATROPIUM 0.02% SOLN 0.5MG 2.5ML NEB NEB SCH ×4 (00:34→19:17)
[2021-04-03 08:00] VITALS: BP 121/77
[2021-04-03 08:27] LABS: BASO % 0.1 % (0.0-1.0); HEMATOCRIT 44.7 % (36.0-47.0); HEMOGLOBIN 14.7 g/dl (12.0-15.5); LYMPH # 0.9 10^3/uL (1.5-5.0); LYMPH % 7.5 % (24.0-44.0); MEAN CORPUSCULAR HGB CONC 32.9 g/dl (32.0-36.5); MEAN CORPUSCULAR VOLUME 97.2 fl (80.0-96.0); MONO # 0.6 10^3/uL (0.0-0.8); MONO % 5.4 % (2.0-8.0); NEUTROPHILS # 10.2 10^3/uL (1.5-8.5); NEUTROPHILS % 86.3 % (36.0-66.0); PLATELET COUNT, AUTOMATED 241 10^3/uL (150-450); WHITE BLOOD COUNT 11.8 10^3/uL (4.0-10.0)
--- NOTE | 2021-04-03 08:32 | ECGEPIP ---
[facility] Test Date: 2021-04-02 Pat Name: TESS QUICK Department: Room: [place] [address] Gender: Female Electrician Maintenance: PAMELA : 1960 Requested By: ALLISON Foster Order Number: [id number] Reading MD: Santiago Cummins Measurements Intervals [place] Rate: 85 P: 68 [place]: 114 QRS: 50 QRSD: 92 T: -27 QT: 412 QTc: 490 Interpretive Statements normal sinus rhythm Prominent voltage with repolarization abnormalities consistent with left v ventricular hypertrophy. Change in precordial lead placement with slower heart rate from 04/02/21 01:06 h hours Electronically Signed on 04-03-2021 8:32:43 EST by Santiago Cummins
[2021-04-03 08:42] LABS: INR 0.95; PARTIAL THROMBOPLASTIN TIME 29.9 SECONDS (25.9-37.0)
[2021-04-03] MEDS ORDERED: PREVNAR 13 VACCINE SYRINGE IM ONE (09:00)
[2021-04-03] MEDS ORDERED: FLUBLOK(EGG FREE)(QUAD)INFLUENZA VACC 0.5ML SYRINGE 18YRS & OLDER IM ONE (09:00)
--- NOTE | 2021-04-03 09:05 | REP ---
INDICATION: r/o pad smoker claudication COMPARISON: None. TECHNIQUE: Real time ogden scale and color Doppler evaluation of the bilateral lower extremity arterial vasculature using linear high frequency transducer. FINDINGS: Ogden scale and color images demonstrate mild to moderate amounts of atheromatous plaquing without focal stenosis or occlusion identified. Doppler interrogation ultimately demonstrates normal arterial wave forms bilaterally (with the exception of monophasic wave pattern through the left profundus artery). Right SHONNA: 1.0 Left SHONNA: 0.86 Peak systolic velocities (cm/sec) Common femoral artery: Right 141; Left 98 Profunda femoris: Right 105; Left 112 SFA (proximal): Right 124; Left 80 SFA (mid): Right 140 seconds; Left 91 SFA (distal): Right 125; Left 49 Popliteal artery: Right 59/88; Left 52/54 Tibioperoneal trunk: Right 74; Left 49 IMAGING MANAGER (prox.): Right 61; Left 38 IMAGING MANAGER (distal): Right 50; Left 26 Peroneal (prox.): Right 61; Left 33 Peroneal (distal): Right 32; Left 15 LUCIO (prox.): Right 55; Left 38 LUCIO (distal): Right 43; Left 21 IMPRESSION: Mild to moderate bilateral atheromatous plaquing without focal areas of stenosis or occlusion. <Electronically signed by Satish Oswald > 04/03/21 0994
[2021-04-03 09:20] LABS: BLOOD UREA NITROGEN 15 MG/DL (7-18); CALCIUM LEVEL 9.7 MG/DL (8.8-10.2); CARBON DIOXIDE LEVEL 30 MEQ/L (21-32); CHLORIDE LEVEL 96 MEQ/L (98-107); CHOLESTEROL LEVEL 240 MG/DL (<200); CHOLESTEROL RISK RATIO 1.777 (<5); CREATININE FOR GFR 0.58 MG/DL (0.55-1.30); GLOMERULAR FILTRATION RATE > 60.0 (>45); GLUCOSE, FASTING 129 MG/DL (70-100); HDL CHOLESTEROL 135 MG/DL (>40); LDL CHOLESTEROL 95 MG/DL (<100); NON-HDL-C 105 MG/DL; POTASSIUM SERUM 4.5 MEQ/L (3.5-5.1); SODIUM LEVEL 132 MEQ/L (136-145); TRIGLYCERIDES LEVEL 49 MG/DL (<150)
[2021-04-03] MEDS: FOLIC ACID 1 MG TAB PO SCH (09:35)
[2021-04-03] MEDS: guaiFENesin ER 600 MG TAB PO SCH ×2 (09:35→20:35)
[2021-04-03] MEDS: THIAMINE 100 MG TAB PO SCH ×2 (09:35→20:35)
[2021-04-03] MEDS: MULTIVITAMINS/MINERALS THERAP 1 TAB PO SCH (09:36)
[2021-04-03] MEDS: AZITHROMYCIN 250MG TABLET PO SCH (09:36)
[2021-04-03] MEDS: ENOXAPARIN 40MG/0.4ML SYRINGE (J1650 PER 10MG) SC SCH (09:40)
[2021-04-03] MEDS: ACETAMINOPHEN TAB 650MG DOSE (2X325MG) PO PRN (09:47)
[2021-04-03] MEDS: methylPREDNISolone 125MG 2ML VIAL IV SCH ×3 (10:49→23:57)
[2021-04-03 11:40] VITALS: O2SAT 92
--- NOTE | 2021-04-03 11:46 | IPN ---
PROGRESS NOTE DATE: 04/03/2021 SUBJECTIVE: Patient says her breathing is much improved. She has had episodes of tachycardia, but denies any palpitations, lightheadedness, dizziness or near syncopal episode. She had no fever or chills overnight. She has a cough which is chronic with white sputum unchanged from before. OBJECTIVE: Vital signs: Temperature 98.7, pulse 96, respiratory rate 25, blood pressure 118/77, 93% on 2 liters nasal cannula. General: Patient is cachectic, bitemporal wasting, frail appearing, positive use of respiratory accessory muscles, but able to speak 8 word sentences. Patient is using her abdominal muscles to breathe. She is hunched over in tripod positioning. HEENT: Dry mucous membranes. Neck: No JVD, thyromegaly or cervical lymphadenopathy. Lungs: Diminished, faint wheezing bilaterally. Heart: S1 and S2 sinus tachycardia. Abdomen: Soft, nontender, nondistended. Extremities: No pitting edema. LABORATORY DATA/IMAGING STUDIES/MICROBIOLOGY: Reviewed. ASSESSMENT: This 60-year-old female actively smoking cigarettes with a history of over 60 pack year history of smoking now down to 1/2 a pack a day presented with shortness of breath, admitted for acute COPD exacerbation and was found to have positive rhinovirus/enterovirus on her respiratory panel, COVID negative. IMPRESSIONS/PLAN: 1. Acute hypoxic respiratory failure requiring supplemental oxygen, secondary to COPD exacerbation: Currently being treated with Solu-Medrol, empiric antibiotics and nebulizer treatments. 2. Human rhinoviral and enteroviral infection: Most likely the inciting agent to her COPD exacerbation. 3. COPD exacerbation: Currently on Solu-Medrol, oxygen, bronchodilators. Patient will need primary care physician as well as cancer program coordinator follow up as outpatient. Continue with oxygen to keep saturations at 88-92%. 4. Elevated BNP most likely due to pulmonary hypertension from chronic COPD: Await 2D echo. Patient does not appear to be volume overloaded. 5. Active tobacco abuse: Patient has been counseled against tobacco smoking. A nicotine patch has been provided.
[2021-04-03 14:00] VITALS: BP 102/60
[2021-04-03 17:13] VITALS: BP 134/83
[2021-04-03 22:00] VITALS: BP 131/81
[2021-04-04] MEDS: IPRATROPIUM 0.02% SOLN 0.5MG 2.5ML NEB NEB SCH ×4 (01:38→19:08)
[2021-04-04] MEDS: LEVALBUTEROL 1.25 MG/0.5 ML CONCENTRATE NEB NEB SCH ×4 (01:39→19:08)
[2021-04-04] MEDS: methylPREDNISolone 125MG 2ML VIAL IV SCH ×3 (05:24→22:10)
[2021-04-04 05:30] VITALS: BP 146/85
[2021-04-04 08:00] VITALS: BP_SYST 147; BP_DIAS 120; BP_DIAS 88
[2021-04-04] MEDS ORDERED: PRED10TA2 PO (08:29)
[2021-04-04] MEDS ORDERED: LEVO750T13 PO (08:29)
[2021-04-04 08:56] LABS: BASO % 0.1 % (0.0-1.0); HEMATOCRIT 44.2 % (36.0-47.0); HEMOGLOBIN 14.4 g/dl (12.0-15.5); LYMPH # 0.4 10^3/uL (1.5-5.0); LYMPH % 3.6 % (24.0-44.0); MEAN CORPUSCULAR HEMOGLOBIN 32.4 pg (27.0-33.0); MEAN CORPUSCULAR HGB CONC 32.6 g/dl (32.0-36.5); MEAN CORPUSCULAR VOLUME 99.3 fl (80.0-96.0); MONO # 0.1 10^3/uL (0.0-0.8); MONO % 1.4 % (2.0-8.0); NEUTROPHILS # 9.1 10^3/uL (1.5-8.5); NEUTROPHILS % 94.3 % (36.0-66.0); PLATELET COUNT, AUTOMATED 240 10^3/uL (150-450); RED BLOOD COUNT 4.45 10^6/uL (4.00-5.40); WHITE BLOOD COUNT 9.7 10^3/uL (4.0-10.0)
[2021-04-04] MEDS: NICOTINE 14 MG/24 HR TRANSDERMAL TD SCH (09:00)
[2021-04-04 09:19] LABS: BLOOD UREA NITROGEN 15 MG/DL (7-18); CALCIUM LEVEL 9.6 MG/DL (8.8-10.2); CARBON DIOXIDE LEVEL 30 MEQ/L (21-32); CHLORIDE LEVEL 94 MEQ/L (98-107); CREATININE FOR GFR 0.72 MG/DL (0.55-1.30); GLOMERULAR FILTRATION RATE > 60.0 (>45); GLUCOSE, FASTING 246 MG/DL (70-100); POTASSIUM SERUM 4.5 MEQ/L (3.5-5.1); SODIUM LEVEL 132 MEQ/L (136-145)
[2021-04-04 09:35] VITALS: O2SAT 93
[2021-04-04] MEDS: guaiFENesin ER 600 MG TAB PO SCH ×2 (09:36→22:10)
[2021-04-04] MEDS: THIAMINE 100 MG TAB PO SCH ×2 (09:36→22:10)
[2021-04-04] MEDS: MULTIVITAMINS/MINERALS THERAP 1 TAB PO SCH (09:36)
[2021-04-04] MEDS: ENOXAPARIN 40MG/0.4ML SYRINGE (J1650 PER 10MG) SC SCH (09:36)
[2021-04-04] MEDS: FOLIC ACID 1 MG TAB PO SCH (09:36)
[2021-04-04] MEDS: AZITHROMYCIN 250MG TABLET PO SCH (09:36)
[2021-04-04 09:39] VITALS: O2SAT 90
[2021-04-04] MEDS ORDERED: NICOTINE POLACRILEX 2 MG GUM PO PRN (10:50)
[2021-04-04] MEDS ORDERED: ISOVUE-370 76% 100ML VIAL As Ordered ONE (10:51)
--- NOTE | 2021-04-04 12:17 | REP ---
INDICATION: r/o pe hypoxic tachycardic COMPARISON: None. TECHNIQUE: CT ANGIOGRAPHY OF THE CHEST AFTER THE INTRAVENOUS ADMINISTRATION OF 75 CC [address] 370 ATTENTION PULMONARY ARTERIES FINDINGS: There is excellent visualization of the pulmonary arterial vasculature. No focal filling defects are present that would be considered consistent with acute pulmonary emboli. There are no pleural or pericardial effusions. There is no mediastinal or hilar adenopathy. The imaged upper abdomen and imaged osseous structures are within normal limits. Evaluation of the lung levy shows mild emphysematous changes. There are no abnormal nodules, masses, or opacities. IMPRESSION: There is no evidence of an acute pulmonary embolism. There are chronic lung field changes as described above. <Electronically signed by Neal Jacobs > 04/04/21 [id number]
--- NOTE | 2021-04-04 13:06 | ECHO ---
ECHOCARDIOGRAM DATE OF PROCEDURE: 04/02/2021 Age: 60 Gender: Female Height: 60 inches Weight: 99 pounds Body surface area: 1.38 m2 PATIENT LOCATION: Inpatient, emergency room. REFERRING PROVIDER: Kelley Foy, Nurse Practitioner. INDICATION: Edema. MEASUREMENTS: 2D Measurements: RV - 3.0 cm LV - 3.6 cm Septum 1.0 cm Posterior wall 1.0 cm Aortic root 3.0 cm LA - 3.2 cm LVEF 75% Doppler Measurements: AV - 2.17 m/sec LVOT - 1.15 m/sec LVOT diameter 1.9 cm Mean AV systolic gradient 9 mmHg Dimensionless index 0.57 MV-E 110, A 125, EA ratio 0.9 Early mitral deceleration time 267 msec E prime medial 7.3 A prime medial 8.9 E prime lateral 6.6 Average E/E prime ratio 15.8/PCWP 21.5 mmHg PV - 0.9 m/sec Pulmonary artery acceleration time 120 msec PASP - 28 mmHg IVC - 1.8 cm COMMENTS: Normal sinus rhythm/sinus tachycardia without intraventricular conduction disturbance. Somewhat technically challenging study in light of the patient's body habitus, but diagnostically useful information was still obtained. M-mode and 2-dimensional cardiography was performed with pulse, continuous wave, color flow and tissue Doppler studies. Normal left ventricular size, wall thickness and hyperkinetic wall motion. Normal left atrial size, but Doppler evidence of grade 1 left ventricular (LV) diastolic dysfunction and slightly elevated estimated mean left atrial pressure. Normal right heart chamber sizes and motion and estimated pulmonary arterial pressure. Normal inferior vena cava (IVC) size and collapse against an elevated central venous pressure. Normal aortic dimensions. Slight aortic valvular sclerosis without functional abnormality. Mild degenerative changes in the mitral valvular apparatus without inflow tract obstruction and only trace insufficiency. Normal appearing tricuspid valve with trace (physiologic) insufficiency. The intraatrial septum was thin and somewhat aneurysmal with obvious swaying motion toward the left and then the right atrium. Unable to detect an associated patent foramen ovale or atrial shunting. No apparent intracardiac mass or pericardial effusion.
[2021-04-04 14:00] VITALS: BP 126/86
--- NOTE | 2021-04-04 15:33 | IPN ---
PROGRESS NOTE DATE: 04/04/2021 SUBJECTIVE: Patient is seen and examined at the bedside. Chart has been reviewed. Patient denies any cough, fever or chills. She is still dyspneic on exertion, desaturating to 84% on room air when she ambulated about 100 feet. She is doing well on room air at rest, saturating 90% to 92%. She denies any palpitations, lightheadedness or dizziness despite tachycardia noted to go up to 134 with ambulation. PHYSICAL EXAMINATION: VITAL SIGNS: Temperature 98.6, pulse 104, respiratory rate 21, blood pressure 147/88, 94% on 2 liters nasal cannula and 90% on room air at rest. GENERAL: Patient is in tripod positioning, but is able to complete her sentences about 8 words. No pallor or icterus. No cyanosis. LUNGS: Diminished but clear to auscultation. No wheezing or rales. HEART: S1, S2, sinus tachycardia at rest. No S3. ABDOMEN: Soft, nontender, non-distended. Positive bowel sounds. EXTREMITIES: No cyanosis, clubbing or pitting edema. LABORATORY DATA/IMAGING STUDIES/MICROBIOLOGY: Have all been reviewed. ASSESSMENT AND PLAN: This is a 60-year-old active smoker with history of over 60 years of smoking, down to half a pack a day, admitted for acute COPD exacerbation due to positive rhinovirus and enterovirus on respiratory panel, COVID negative. Patient is found to be hypoxic at 84% on room air with ambulation, tachycardic, unstable for discharge for now. IMPRESSION: 1. Acute COPD exacerbation. 2. Acute hypoxic respiratory failure secondary to COPD exacerbation. 3. Enteroviral and rhinoviral infection. 4. Sinus tachycardia secondary to COPD exacerbation; rule out pulmonary embolism. 5. Peripheral artery disease with abnormal arterial lower extremity Dopplers and complaints of intermittent claudication. 6. Alcohol abuse; she is currently on [facility] protocol for alcohol abuse. PLAN: Patient remains severely tachycardic with rate of 134 with ambulation and hypoxic at 84% with ambulation about 100 feet. Patient will be kept on Solu-Medrol, nebulizer treatment, supplemental oxygen and Azithromycin. Nicotine replacement therapy and tobacco cessation counseling has been provided. Will obtain a CT chest to rule out pulmonary embolism in light of tachycardia hypoxia. Patient will need vaccinations at hospital discharge and referral to [employer] as well as vascular surgery.
[2021-04-04] MEDS ORDERED: predniSONE 20 MG TAB PO SCH (16:00)
[2021-04-04 21:57] VITALS: BP 128/84
[2021-04-05] MEDS: LEVALBUTEROL 1.25 MG/0.5 ML CONCENTRATE NEB NEB SCH ×2 (01:36→07:21)
[2021-04-05] MEDS: IPRATROPIUM 0.02% SOLN 0.5MG 2.5ML NEB NEB SCH ×2 (01:36→07:21)
[2021-04-05 02:52] VITALS: O2SAT 91
[2021-04-05] MEDS: methylPREDNISolone 125MG 2ML VIAL IV SCH (05:17)
[2021-04-05 06:00] VITALS: BP 153/94
[2021-04-05 06:30] LABS: HEMATOCRIT 44.7 % (36.0-47.0); HEMOGLOBIN 14.5 g/dl (12.0-15.5); LYMPH # 0.5 10^3/uL (1.5-5.0); LYMPH % 5.9 % (24.0-44.0); MEAN CORPUSCULAR HEMOGLOBIN 32.5 pg (27.0-33.0); MEAN CORPUSCULAR HGB CONC 32.4 g/dl (32.0-36.5); MEAN CORPUSCULAR VOLUME 100.2 fl (80.0-96.0); MONO # 0.5 10^3/uL (0.0-0.8); MONO % 5.4 % (2.0-8.0); NEUTROPHILS # 7.8 10^3/uL (1.5-8.5); PLATELET COUNT, AUTOMATED 245 10^3/uL (150-450); RED BLOOD COUNT 4.46 10^6/uL (4.00-5.40); WHITE BLOOD COUNT 8.9 10^3/uL (4.0-10.0)
[2021-04-05 06:50] LABS: BLOOD UREA NITROGEN 18 MG/DL (7-18); CALCIUM LEVEL 9.3 MG/DL (8.8-10.2); CARBON DIOXIDE LEVEL 29 MEQ/L (21-32); CHLORIDE LEVEL 98 MEQ/L (98-107); CREATININE FOR GFR 0.73 MG/DL (0.55-1.30); GLOMERULAR FILTRATION RATE > 60.0 (>45); GLUCOSE, FASTING 142 MG/DL (70-100); POTASSIUM SERUM 4.7 MEQ/L (3.5-5.1); SODIUM LEVEL 134 MEQ/L (136-145)
[2021-04-05] MEDS: MULTIVITAMINS/MINERALS THERAP 1 TAB PO SCH (08:30)
[2021-04-05] MEDS: ENOXAPARIN 40MG/0.4ML SYRINGE (J1650 PER 10MG) SC SCH (08:31)
[2021-04-05] MEDS: FOLIC ACID 1 MG TAB PO SCH (08:31)
[2021-04-05] MEDS: AZITHROMYCIN 250MG TABLET PO SCH (08:31)
[2021-04-05] MEDS: THIAMINE 100 MG TAB PO SCH (08:31)
[2021-04-05] MEDS: NICOTINE 14 MG/24 HR TRANSDERMAL TD SCH (08:31)
[2021-04-05 08:45] VITALS: O2SAT 93
[2021-04-05] MEDS ORDERED: ASPIRIN 81 MG CHEW TABLET PO SCH (09:00)
--- NOTE | 2021-04-05 18:01 | DS.PDOC ---
Discharge Summary General Date of Admission Apr 02, 2021 at 04:44 Date of Discharge Apr 05, 2021 Discharge Summary PROCEDURES PERFORMED DURING STAY: None ADMITTING DIAGNOSES: 1. Acute COPD exacerbation 2. Human rhinovirus/enterovirus infection 3. Peripheral arterial disease DISCHARGE DIAGNOSES: 1. Acute COPD exacerbation 2. Human rhinovirus/enterovirus infection 3. Peripheral arterial disease COMPLICATIONS/CHIEF COMPLAINT: Copd With Exacerbation. HISTORY OF PRESENT ILLNESS: Copied from admitting providers H&P " Becky pat is 60-year-old female with significant medical history of COPD who presents with complaints of SOB x1 week. Pt endorses associated conte, sinus congestion, sore throat, productive cough, and malaise past week. Patient reports that her "whole family has had a cold" recently. Patient reports that she has albuterol inhaler at home for her COPD and has had no improvement with the shortness of breath. Patient reports that she has been taking Mucinex at home and this is helped but when she ran out today noticeable difference with her dyspnea. Patient does endorse dyspnea on exertion. She reports that she does not have home oxygen at baseline; she reports that she had Covid in July and described worsening wheezing episodes since then however not as short of breath as she has now. Upon arrival to ED patient found to have SPO2 83% on room air. Patient arrived tachycardic 110 which improved with application of nasal cannula for SPO2 94% HR 94 on 2 L nasal cannula. Patient ABG did showed pH 7.32 with PCO2 47.1. Patient also with elevated BNP 1438. Chest x-ray nonacute. Patient afebrile without leukocytosis. Pt denies palpitations, chest pain, n/v/d, abdominal pain, weakness, sensory changes or syncope. Patient does endorse bilateral pedal edema; she reports this is been ongoing since she had Covid in July and she describes worse swelling past week. Of note, PCR positive for human rhinovirus/enterovirus. Patient will be admitted for further evaluation management presenting concerns. " HOSPITAL COURSE: During hospitalization, patient required 2 L nasal cannula. She was put on Solu-Medrol and breathing treatments. Procalcitonin was negative and antibiotics were not started. Patient did well and was able to be weaned off of oxygen. Yesterday, she had some exertional hypoxia. Today, she did not have any exertional hypoxia. She felt well and felt ready for home. She was discharged home with prednisone taper. DISCHARGE MEDICATIONS: Please see below. ALLERGIES: Please see below. PHYSICAL EXAMINATION ON DISCHARGE: VITAL SIGNS: Please see below. GENERAL: Comfortable, in no apparent distress. HEENT: Head normocephalic/atraumatic, EOMI, sclera clear. NECK: Supple, no JVD. RESPIRATORY: Diminished but clear to auscultation bilaterally, no wheeze. CARDIOVASCULAR: Regular rate and rhythm. ABDOMEN: Soft, nontender, no guarding or rebound tenderness. Normal bowel sounds. MUSCLE SKELETAL: Muscle strength 5/5 in all extremities. PSYCHOLOGICAL: Normal mood and affect LABORATORY DATA: Please see below. IMAGING: Radiologist interpretation CT angio chest FINDINGS: There is excellent visualization of the pulmonary arterial vasculature. No focal filling defects are present that would be considered consistent with acute pulmonary emboli. There are no pleural or pericardial effusions. There is no mediastinal or hilar adenopathy. The imaged upper abdomen and imaged osseous structures are within normal limits. Evaluation of the lung levy shows mild emphysematous changes. There are no abnormal nodules, masses, or opacities. IMPRESSION: There is no evidence of an acute pulmonary embolism. There are chronic lung field changes as described above. Bilateral lower extremity arterial study Mild to moderate bilateral atheromatous plaquing without focal areas of stenosis or occlusion. PROGNOSIS: Good ACTIVITY: As tolerated. DIET: COPD diet DISCHARGE PLAN: Home DISPOSITION: 01 Home, Self-Care. DISCHARGE INSTRUCTIONS: 1. Follow-up with PCP within 1 week 2. Referral to pulmonology ITEMS TO FOLLOWUP ON ON OUTPATIENT: 1. Can consider referral to vascular surgery for peripheral arterial disease 2. Patient may benefit from smoking cessation DISCHARGE CONDITION: Stable. Total time spent on discharge planning, discharge summary, and medication rec onciliation: 45 minutes Vital Signs/I&Os Vital Signs Date Time Temp Pulse Resp B/P (MAP) Pulse Ox O2 Delivery O2 Flow Rate FiO2 04/05/21 08:45 93 Room Air 04/05/21 07:22 83 16 04/05/21 06:00 97.0 153/94 (113) 04/04/21 09:35 2.0 04/02/21 02:36 93 I&O- Last 24 Hours up to 6 AM 04/05/21 06:00 Intake Total 1680 ml Output Total 1000 ml Balance 680 ml Laboratory Data Labs 24H Laboratory Tests 2 04/05/21 06:01: Immature Granulocyte % (Auto) 0.7, Neutrophils (%) (Auto) 88.0H, Lymphocytes (%) (Auto) 5.9L, Monocytes (%) (Auto) 5.4, Eosinophils (%) (Auto) 0.0, Basophils (%) (Auto) 0.0, Neutrophils # (Auto) 7.8, Lymphocytes # (Auto) 0.5L, Monocytes # (Auto) 0.5, Eosinophils # (Auto) 0.0, Basophils # (Auto) 0.0, Nucleated Red Blood Cells % (auto) 0.0, Anion Gap 7L, Glomerular Filtration Rate > 60.0, Calcium Level 9.3 CBC/BMP Laboratory Tests 04/05/21 06:01 Microbiology Microbiology 04/02/21 Respiratory Virus Panel (PCR) ([facility]) - Final, Complete Human Rhinovirus/Enterovirus 04/02/21 Blood Culture - Preliminary, Resulted No Growth after 72 hours. All specime... 04/02/21 Blood Culture - Preliminary, Resulted No Growth after 72 hours. All specime... Discharge Medications Scheduled Ergocalciferol (Vitamin D2) (Vitamin D2) 50,000 Units Cap, 50,000 UNITS PO QWEEK, (Reported) WEDNESDAY MORNING Fluticasone/Umeclidin/Vilanter (Trelegy Ellipta 100-62.5-25) 1 Each Blst.w.dev, 1 PUFF INH BID, (Reported) Guaifenesin/Dextromethorphan (Mucinex Dm ER 600-30 mg Tablet) 1 Each Tab.er.12h, 1 TAB PO BID, (Reported) Prednisone (Prednisone) 10 Mg Tablet, 10 MG PO TAPER Take 4 tabs daily x 3 days, then 3 tabs daily x 3 days, then 2 tabs daily x 3 days, then 1 tab daily x 3 days and stop Scheduled PRN Albuterol Sulf (Albuterol Sulfate) 2.5 Mg/3 Ml Vial.neb, 2.5 MG INH Q4H PRN for SHORTNESS OF BREATH, (Reported) Albuterol Sulfate (Proair Hfa) 8.5 Gm Hfa.aer.ad, 2 PUFF INH Q4H PRN for SHORTNESS OF BREATH, (Reported) D-Methorphan/PE/Acetaminophen (Daytime Cold-Flu Relief Sftgl) 10 Mg-5 Mg-325 Mg Capsule, 2 CAP PO QID PRN for COLD SYMPTOMS, (Reported) Allergies Coded Allergies: tetracycline (Verified Allergy, Severe, anaphylaxsis, 04/02/21) ELYSE WASHBURN DO Apr 05, 2021 18:01
== END 2021-04-05 10:55 | disposition home or self-care (01) | DRG 140 ==
LOC: M ED 00:17 → M ED INP 04:44 → ENRESERV 13:45 → M MSPAV 15:43
PROVIDERS: ADMIT Internal Medicine; ATTEND Internal Medicine
DX: J44.1 Chronic obstructive pulmonary disease with (acute) exacerbation (principal); J96.01 Acute respiratory failure with hypoxia; I27.20 Pulmonary hypertension, unspecified; F17.210 Nicotine dependence, cigarettes, uncomplicated; Z20.822 Contact with and (suspected) exposure to COVID-19; Z86.16 Personal history of COVID-19; Z79.899 Other long term (current) drug therapy; Z88.1 Allergy status to other antibiotic agents; B34.8 Other viral infections of unspecified site; F10.10 Alcohol abuse, uncomplicated; I73.9 Peripheral vascular disease, unspecified

== ENCOUNTER 2021-05-25 23:54 | Inpatient (IN) | payer OTHER ==
[~2021-05-25] VITALS: Ht 152.4 cm; Wt 48.6 kg
[~2021-05-25 23:54] MED LIST: ALBU1.25 NEB; ALBU83IN INH; D-ME1CAP36 PO; ERGO500029 PO; LEVO750T13 PO; MUCI30TA5 PO; PRED10TA2 PO; PROAAER10 INH; PROV108A INH; TREL1AER INH
[2021-05-26] MEDS ORDERED: COMBIVENT RESPIMAT 100-20MCG INHALER 4GM INH STA (00:50)
[2021-05-26] MEDS ORDERED: methylPREDNISolone 125MG 2ML VIAL IV ONE (00:55)
[2021-05-26 01:16] LABS: BASO # 0.1 10^3/uL (0.0-0.2); BASO % 0.6 % (0.0-1.0); EOS # 0.1 10^3/uL (0.0-0.5); EOS % 0.7 % (0.0-3.0); HEMOGLOBIN 14.7 g/dl (12.0-15.5); LYMPH % 9.1 % (24.0-44.0); MEAN CORPUSCULAR HEMOGLOBIN 33.3 pg (27.0-33.0); MEAN CORPUSCULAR HGB CONC 33.4 g/dl (32.0-36.5); MEAN CORPUSCULAR VOLUME 99.5 fl (80.0-96.0); MONO # 1.1 10^3/uL (0.0-0.8); MONO % 10.1 % (2.0-8.0); NEUTROPHILS # 8.7 10^3/uL (1.5-8.5); NEUTROPHILS % 79.1 % (36.0-66.0); PLATELET COUNT, AUTOMATED 245 10^3/uL (150-450); RED BLOOD COUNT 4.42 10^6/uL (4.00-5.40)
[2021-05-26 01:30] LABS: INR 1.07; PROTHROMBIN TIME 14.3 SECONDS (12.7-14.5)
[2021-05-26 01:31] LABS: PARTIAL THROMBOPLASTIN TIME 32.2 SECONDS (25.9-37.0)
[2021-05-26 01:36] LABS: ABG BASE EXCESS 4.4 (-2.0-2.0); ABG HCO3 29.9 MEQ/L (22.0-26.0); ABG O2 SATURATION 99.1 % (95.0-99.0); ABG PARTIAL PRESSURE CO2 48.1 mmHg (35.0-45.0); ABG PARTIAL PRESSURE O2 144.6 mmHg (75.0-100.0); ABG STANDARD HCO3 28.4 MEQ/L (22.0-26.0); ABG TOTAL CO2 31.4 MEQ/L (23.0-31.0); ABG pH (ARTERIAL) 7.412 UNITS (7.350-7.450)
[2021-05-26 01:47] LABS: D-DIMER QUANT 3398.85 ng/ml (<500)
[2021-05-26 01:52] LABS: CK-MB VALUE MASS 2.2 NG/ML (<3.6); MB/CK RELATIVE INDEX 5.24 (< OR =4)
[2021-05-26 01:59] LABS: BLOOD UREA NITROGEN 9 MG/DL (7-18); CALCIUM LEVEL 8.6 MG/DL (8.8-10.2); CARBON DIOXIDE LEVEL 28 MEQ/L (21-32); CHLORIDE LEVEL 90 MEQ/L (98-107); CREATININE FOR GFR 0.47 MG/DL (0.55-1.30); GLOMERULAR FILTRATION RATE > 60.0 (>45); GLUCOSE, FASTING 108 MG/DL (70-100); NT-PRO BNP 4520 PG/ML (<125); POTASSIUM SERUM 4.8 MEQ/L (3.5-5.1); SODIUM LEVEL 127 MEQ/L (136-145)
[2021-05-26] MEDS ORDERED: ISOVUE-370 76% 100ML VIAL As Ordered ONE (02:09)
[2021-05-26 02:50] LABS: RSV AMPLIFICATION NEGATIVE (NEGATIVE)
[2021-05-26] MEDS ORDERED: FURO40TA2 PO (03:53)
[2021-05-26] MEDS ORDERED: TIOT18INH INH (04:14)
[2021-05-26] MEDS ORDERED: wixela (04:14)
[2021-05-26] MEDS ORDERED: CRES10TA PO (04:18)
[2021-05-26] MEDS ORDERED: FLUT1BLS IH (04:18)
[2021-05-26] MEDS ORDERED: HOME MED LIST COMPLETE! XX SCH (04:20)
[2021-05-26] MEDS ORDERED: FUROSEMIDE 40MG/4ML VIAL (J1940) IV ONE (05:40)
[2021-05-26] MEDS ORDERED: MOM 30ML SUSPENSION UDC PO PRN (06:20)
[2021-05-26] MEDS ORDERED: MAALOX 30 ML SUSP *UDC PO PRN (06:20)
[2021-05-26] MEDS ORDERED: LORazepam 2 MG TAB PO PRN (06:35)
[2021-05-26] MEDS ORDERED: IPRATROPIUM 0.5MG/ALBUTEROL 2.5MG INH SOL UD 3ML (DUONEB) NEB PRN (06:35)
[2021-05-26] MEDS: SYMBICORT 160/4.5MCG INHALER 6GM INH SCH ×2 (08:00→20:12)
[2021-05-26] MEDS: TIOTROPIUM INHALER/CAPSULE (SPIRIVA) INH SCH (08:00)
[2021-05-26] MEDS: MULTIVITAMINS/MINERALS THERAP 1 TAB PO SCH (08:37)
[2021-05-26] MEDS: AZITHROMYCIN INJ 500 MG, VIAL MATE ADAPTER 1 EACH in NS 250 ML IV SCH (08:37)
[2021-05-26] MEDS: THIAMINE 100 MG TAB PO SCH ×2 (08:37→21:53)
[2021-05-26] MEDS: FOLIC ACID 1 MG TAB PO SCH (08:37)
[2021-05-26] MEDS: ROSUVASTATIN 10 MG TAB (CRESTOR) PO SCH (08:37)
[2021-05-26 08:49] LABS: FREE T4 1.24 NG/DL (0.76-1.46); THYROID STIMULATING HORMONE 0.417 uIU/ML (0.358-3.740)
[2021-05-26] MEDS ORDERED: TIOTROPIUM INHALER/CAPSULE (SPIRIVA) INH SCH (09:00)
[2021-05-26] MEDS ORDERED: methylPREDNISolone 125MG 2ML VIAL IV SCH ×2 (10:00→12:00)
[2021-05-26] MEDS: cefTRIAXone SOD 1 GM in D5W MINI-BAG PLUS 50 ML IV SCH (10:02)
[2021-05-26 10:37] LABS: CORTISOL AM 42.8 UG/DL (4.3-22.4)
[2021-05-26] MEDS: FUROSEMIDE 40MG/4ML VIAL (J1940) IV SCH (14:16)
[2021-05-26] MEDS: HEPARIN SOD (PORCINE) 5000UNITS/ML 1ML VIAL/SYRINGE SC SCH ×2 (14:17→21:54)
[2021-05-26 21:33] VITALS: BP 99/70
[2021-05-27] MEDS: methylPREDNISolone 40MG 1ML VIAL IV SCH ×2 (00:34→12:53)
[2021-05-27] MEDS: FUROSEMIDE 40MG/4ML VIAL (J1940) IV SCH ×2 (00:34→05:59)
[2021-05-27] MEDS: ACETAMINOPHEN TAB 650MG DOSE (2X325MG) PO PRN ×2 (00:35→06:00)
[2021-05-27 05:51] VITALS: BP 122/77
[2021-05-27] MEDS: HEPARIN SOD (PORCINE) 5000UNITS/ML 1ML VIAL/SYRINGE SC SCH ×2 (05:59→15:22)
[2021-05-27 06:13] LABS: HEMOGLOBIN 13.5 g/dl (12.0-15.5); MEAN CORPUSCULAR HEMOGLOBIN 32.7 pg (27.0-33.0); MEAN CORPUSCULAR HGB CONC 32.1 g/dl (32.0-36.5); MEAN CORPUSCULAR VOLUME 101.7 fl (80.0-96.0); PLATELET COUNT, AUTOMATED 264 10^3/uL (150-450); RED BLOOD COUNT 4.13 10^6/uL (4.00-5.40); WHITE BLOOD COUNT 8.6 10^3/uL (4.0-10.0)
[2021-05-27 06:53] LABS: BLOOD UREA NITROGEN 17 MG/DL (7-18); CARBON DIOXIDE LEVEL 37 MEQ/L (21-32); CHLORIDE LEVEL 92 MEQ/L (98-107); CREATININE FOR GFR 0.51 MG/DL (0.55-1.30); GLOMERULAR FILTRATION RATE > 60.0 (>45); GLUCOSE, FASTING 149 MG/DL (70-100); POTASSIUM SERUM 4.1 MEQ/L (3.5-5.1); SODIUM LEVEL 135 MEQ/L (136-145)
[2021-05-27] MEDS: SYMBICORT 160/4.5MCG INHALER 6GM INH SCH ×2 (07:29→20:33)
[2021-05-27] MEDS: TIOTROPIUM INHALER/CAPSULE (SPIRIVA) INH SCH (07:29)
[2021-05-27] MEDS: LEVALBUTEROL 1.25 MG/0.5 ML CONCENTRATE NEB INH SCH ×5 (08:00→23:23)
[2021-05-27] MEDS: cefTRIAXone SOD 1 GM in D5W MINI-BAG PLUS 50 ML IV SCH (09:52)
[2021-05-27] MEDS: FOLIC ACID 1 MG TAB PO SCH (09:52)
[2021-05-27] MEDS: THIAMINE 100 MG TAB PO SCH ×2 (09:52→20:35)
[2021-05-27] MEDS: MULTIVITAMINS/MINERALS THERAP 1 TAB PO SCH (09:52)
[2021-05-27] MEDS: ROSUVASTATIN 10 MG TAB (CRESTOR) PO SCH (09:52)
[2021-05-27] MEDS: AZITHROMYCIN INJ 500 MG, VIAL MATE ADAPTER 1 EACH in NS 250 ML IV SCH (09:53)
[2021-05-27 14:00] VITALS: BP 105/73
[2021-05-27 21:00] VITALS: BP 106/72
[2021-05-28] MEDS: ACETAMINOPHEN TAB 650MG DOSE (2X325MG) PO PRN ×2 (00:27→05:49)
[2021-05-28] MEDS: methylPREDNISolone 40MG 1ML VIAL IV SCH ×2 (00:27→11:29)
[2021-05-28] MEDS: HEPARIN SOD (PORCINE) 5000UNITS/ML 1ML VIAL/SYRINGE SC SCH ×2 (00:27→05:48)
[2021-05-28] MEDS: LEVALBUTEROL 1.25 MG/0.5 ML CONCENTRATE NEB INH SCH ×3 (03:49→14:33)
[2021-05-28 05:51] VITALS: BP 129/84
[2021-05-28 06:53] LABS: HEMATOCRIT 41.4 % (36.0-47.0); HEMOGLOBIN 13.2 g/dl (12.0-15.5); MEAN CORPUSCULAR HEMOGLOBIN 33.1 pg (27.0-33.0); MEAN CORPUSCULAR HGB CONC 31.9 g/dl (32.0-36.5); MEAN CORPUSCULAR VOLUME 103.8 fl (80.0-96.0); PLATELET COUNT, AUTOMATED 273 10^3/uL (150-450); RED BLOOD COUNT 3.99 10^6/uL (4.00-5.40); WHITE BLOOD COUNT 8.2 10^3/uL (4.0-10.0)
[2021-05-28 07:16] LABS: BLOOD UREA NITROGEN 16 MG/DL (7-18); CALCIUM LEVEL 8.9 MG/DL (8.8-10.2); CARBON DIOXIDE LEVEL 36 MEQ/L (21-32); CHLORIDE LEVEL 94 MEQ/L (98-107); GLOMERULAR FILTRATION RATE > 60.0 (>45); GLUCOSE, FASTING 146 MG/DL (70-100); POTASSIUM SERUM 4.1 MEQ/L (3.5-5.1); SODIUM LEVEL 134 MEQ/L (136-145)
[2021-05-28] MEDS: SYMBICORT 160/4.5MCG INHALER 6GM INH SCH (08:00)
[2021-05-28] MEDS: TIOTROPIUM INHALER/CAPSULE (SPIRIVA) INH SCH (08:00)
[2021-05-28] MEDS ORDERED: PRED10TA2 PO (09:51)
[2021-05-28] MEDS ORDERED: PROAAER10 INH (09:51)
[2021-05-28] MEDS ORDERED: CEFD300CAP PO (09:51)
[2021-05-28] MEDS: ROSUVASTATIN 10 MG TAB (CRESTOR) PO SCH (09:55)
[2021-05-28] MEDS: THIAMINE 100 MG TAB PO SCH (09:55)
[2021-05-28] MEDS: MULTIVITAMINS/MINERALS THERAP 1 TAB PO SCH (09:55)
[2021-05-28] MEDS: FOLIC ACID 1 MG TAB PO SCH (09:55)
[2021-05-28] MEDS: AZITHROMYCIN INJ 500 MG, VIAL MATE ADAPTER 1 EACH in NS 250 ML IV SCH (10:15)
[2021-05-28] MEDS: cefTRIAXone SOD 1 GM in D5W MINI-BAG PLUS 50 ML IV SCH (11:29)
== END 2021-05-28 15:22 | disposition home or self-care (01) | DRG 140 ==
LOC: M ED 23:54 → M ED INP 05-26 06:17 → ENRESERV 05-26 19:26 → M MSPAV 05-26 21:15
PROVIDERS: ADMIT Family Medicine; ATTEND Internal Medicine Nephrology
DX: J44.1 Chronic obstructive pulmonary disease with (acute) exacerbation (principal); I50.33 Acute on chronic diastolic (congestive) heart failure; E87.1 Hypo-osmolality and hyponatremia; F17.200 Nicotine dependence, unspecified, uncomplicated; F10.10 Alcohol abuse, uncomplicated; Z20.822 Contact with and (suspected) exposure to COVID-19; Z79.51 Long term (current) use of inhaled steroids; Z79.899 Other long term (current) drug therapy; Z88.1 Allergy status to other antibiotic agents; E78.5 Hyperlipidemia, unspecified

== ENCOUNTER 2021-07-02 01:52 | Inpatient (IN) | payer OTHER ==
[~2021-07-02] VITALS: Ht 152.4 cm; Wt 49.2 kg
[~2021-07-02 01:52] MED LIST changes: +CEFD300CAP PO; +CRES10TA PO; +FLUT1BLS INH; +FURO40TA2 PO; +TIOT18INH INH; +wixela
[2021-07-02 02:34] LABS: BASO # 0.1 10^3/uL (0.0-0.2); EOS # 0.1 10^3/uL (0.0-0.5); EOS % 1.3 % (0.0-3.0); HEMATOCRIT 39.2 % (36.0-47.0); HEMOGLOBIN 13.4 g/dl (12.0-15.5); LYMPH # 1.2 10^3/uL (1.5-5.0); LYMPH % 18.8 % (24.0-44.0); MEAN CORPUSCULAR HEMOGLOBIN 33.4 pg (27.0-33.0); MEAN CORPUSCULAR HGB CONC 34.2 g/dl (32.0-36.5); MEAN CORPUSCULAR VOLUME 97.8 fl (80.0-96.0); MONO # 0.6 10^3/uL (0.0-0.8); MONO % 9.1 % (2.0-8.0); NEUTROPHILS # 4.3 10^3/uL (1.5-8.5); NEUTROPHILS % 69.3 % (36.0-66.0); PLATELET COUNT, AUTOMATED 240 10^3/uL (150-450); RED BLOOD COUNT 4.01 10^6/uL (4.00-5.40); WHITE BLOOD COUNT 6.2 10^3/uL (4.0-10.0)
[2021-07-02 02:45] LABS: INR 1.02; PROTHROMBIN TIME 13.8 SECONDS (12.7-14.5)
[2021-07-02 02:46] LABS: PARTIAL THROMBOPLASTIN TIME 29.8 SECONDS (25.9-37.0)
[2021-07-02 03:03] LABS: CK-MB VALUE MASS 1.8 NG/ML (<3.6); MB/CK RELATIVE INDEX 3.27 (< OR =4)
[2021-07-02 03:09] LABS: ALBUMIN 3.6 GM/DL (3.2-5.2); ALT/SGPT 22 U/L (12-78); BILIRUBIN,DIRECT 0.3 MG/DL (0.0-0.2); BILIRUBIN,TOTAL 1.3 MG/DL (0.2-1.0); BLOOD UREA NITROGEN 13 MG/DL (7-18); CARBON DIOXIDE LEVEL 30 MEQ/L (21-32); CHLORIDE LEVEL 82 MEQ/L (98-107); CREATININE FOR GFR 0.72 MG/DL (0.55-1.30); GLOMERULAR FILTRATION RATE > 60.0 (>45); GLUCOSE, FASTING 100 MG/DL (70-100); NT-PRO BNP 601 PG/ML (<125); POTASSIUM SERUM 4.3 MEQ/L (3.5-5.1); SODIUM LEVEL 124 MEQ/L (136-145); TOTAL PROTEIN 7.3 GM/DL (6.4-8.2)
[2021-07-02] MEDS ORDERED: dexameTHASONE 20MG/5ML VIAL (J1100 PER 1MG) IV ONE (03:10)
[2021-07-02] MEDS: COMBIVENT RESPIMAT 100-20MCG INHALER 4GM INH SCH ×2 (03:21→03:22)
[2021-07-02] MEDS ORDERED: NS 1,000 ML IV SCH (05:35)
[2021-07-02] MEDS ORDERED: ALBUTEROL SULFATE 2.5 MG/0.5 ML INH NEB SOLN NEB PRN (05:35)
[2021-07-02] MEDS: HEPARIN SOD (PORCINE) 5000UNITS/ML 1ML VIAL/SYRINGE SC SCH ×3 (07:00→21:51)
[2021-07-02] MEDS ORDERED: IBUP200T46 PO (07:13)
[2021-07-02] MEDS ORDERED: VENTAER INH (07:13)
[2021-07-02] MEDS ORDERED: HOME MED LIST COMPLETE! XX SCH (07:15)
[2021-07-02] MEDS: IPRATROPIUM 0.5MG/ALBUTEROL 2.5MG INH SOL UD 3ML (DUONEB) NEB SCH ×3 (08:00→19:23)
[2021-07-02] MEDS: methylPREDNISolone 40MG 1ML VIAL IV SCH ×2 (08:27→18:21)
[2021-07-02] MEDS ORDERED: SPIR1AER INH (08:36)
[2021-07-02] MEDS ORDERED: ROSU10TA6 PO (08:53)
[2021-07-02 11:40] LABS: BLOOD UREA NITROGEN 16 MG/DL (7-18); CALCIUM LEVEL 9.2 MG/DL (8.8-10.2); CARBON DIOXIDE LEVEL 31 MEQ/L (21-32); CHLORIDE LEVEL 86 MEQ/L (98-107); CREATININE FOR GFR 0.82 MG/DL (0.55-1.30); GLOMERULAR FILTRATION RATE > 60.0 (>45); GLUCOSE, FASTING 403 MG/DL (70-100); POTASSIUM SERUM 4.1 MEQ/L (3.5-5.1); SODIUM LEVEL 127 MEQ/L (136-145)
[2021-07-02] MEDS ORDERED: DEXTROSE 50% 50 ML SYRINGE IV PRN (12:05)
[2021-07-02] MEDS ORDERED: GLUCAGON INJ 1MG VIAL SC PRN (12:05)
[2021-07-02] MEDS ORDERED: GLUCOSE 4GM CHEW TABLET PO PRN (12:05)
[2021-07-02] MEDS: HumaLOG INSULIN (NovoLOG) PER UNIT SC SCH ×3 (12:42→20:08)
[2021-07-02] MEDS: ACETAMINOPHEN TAB 650MG DOSE (2X325MG) PO PRN ×2 (13:02→20:11)
[2021-07-02] MEDS ORDERED: LORazepam 2 MG TAB PO PRN (13:15)
[2021-07-02] MEDS ORDERED: HumuLIN R (REGULAR) INSULIN (NovoLIN R) **100U/ML** PER UNIT IV ONE (13:40)
[2021-07-02] MEDS: FOLIC ACID 1 MG TAB PO SCH (14:24)
[2021-07-02] MEDS: MULTIVITAMINS/MINERALS THERAP 1 TAB PO SCH (14:24)
[2021-07-02] MEDS: THIAMINE 100 MG TAB PO SCH ×2 (14:25→20:11)
[2021-07-02 14:43] LABS: BLOOD UREA NITROGEN 18 MG/DL (7-18); CALCIUM LEVEL 9.1 MG/DL (8.8-10.2); CARBON DIOXIDE LEVEL 29 MEQ/L (21-32); CHLORIDE LEVEL 88 MEQ/L (98-107); GLOMERULAR FILTRATION RATE > 60.0 (>45); GLUCOSE, FASTING 332 MG/DL (70-100); POTASSIUM SERUM 3.8 MEQ/L (3.5-5.1); SODIUM LEVEL 128 MEQ/L (136-145)
[2021-07-02 17:25] VITALS: BP 129/73
[2021-07-02] MEDS ORDERED: HumaLOG INSULIN (NovoLOG) PER UNIT SC SCH (17:30)
[2021-07-02] MEDS: NICOTINE 7 MG/24 HR TRANSDERMAL TD SCH (18:29)
[2021-07-02 18:49] VITALS: BP 129/73
[2021-07-02 20:12] VITALS: BP 125/72
[2021-07-02 20:18] LABS: BLOOD UREA NITROGEN 17 MG/DL (7-18); CALCIUM LEVEL 9.2 MG/DL (8.8-10.2); CARBON DIOXIDE LEVEL 32 MEQ/L (21-32); CHLORIDE LEVEL 89 MEQ/L (98-107); GLOMERULAR FILTRATION RATE > 60.0 (>45); GLUCOSE, FASTING 202 MG/DL (70-100); POTASSIUM SERUM 3.6 MEQ/L (3.5-5.1); SODIUM LEVEL 127 MEQ/L (136-145)
[2021-07-03] VITALS (7 sets, daily range): BP systolic 108–140; BP diastolic 67–87
[2021-07-03] MEDS: methylPREDNISolone 40MG 1ML VIAL IV SCH ×3 (01:22→17:04)
[2021-07-03] MEDS: IPRATROPIUM 0.5MG/ALBUTEROL 2.5MG INH SOL UD 3ML (DUONEB) NEB SCH ×4 (02:27→19:21)
[2021-07-03] MEDS: HEPARIN SOD (PORCINE) 5000UNITS/ML 1ML VIAL/SYRINGE SC SCH ×3 (05:20→21:02)
[2021-07-03] MEDS: ACETAMINOPHEN TAB 650MG DOSE (2X325MG) PO PRN ×2 (05:20→21:02)
[2021-07-03] MEDS: THIAMINE 100 MG TAB PO SCH ×2 (08:17→21:02)
[2021-07-03] MEDS: MULTIVITAMINS/MINERALS THERAP 1 TAB PO SCH (08:17)
[2021-07-03] MEDS: FOLIC ACID 1 MG TAB PO SCH (08:17)
[2021-07-03] MEDS: HumaLOG INSULIN (NovoLOG) PER UNIT SC SCH ×4 (08:18→21:00)
[2021-07-03] MEDS: NITROGLYCERIN 0.3 MG SUBL TAB SL PRN ×2 (08:54→09:41)
[2021-07-03 08:58] LABS: HEMATOCRIT 38.4 % (36.0-47.0); HEMOGLOBIN 12.5 g/dl (12.0-15.5); MEAN CORPUSCULAR HGB CONC 32.6 g/dl (32.0-36.5); MEAN CORPUSCULAR VOLUME 101.3 fl (80.0-96.0); PLATELET COUNT, AUTOMATED 228 10^3/uL (150-450); RED BLOOD COUNT 3.79 10^6/uL (4.00-5.40); WHITE BLOOD COUNT 11.4 10^3/uL (4.0-10.0)
[2021-07-03] MEDS: NICOTINE 7 MG/24 HR TRANSDERMAL TD SCH (09:00)
[2021-07-03 09:28] LABS: BLOOD UREA NITROGEN 11 MG/DL (7-18); CALCIUM LEVEL 9.1 MG/DL (8.8-10.2); CARBON DIOXIDE LEVEL 32 MEQ/L (21-32); CHLORIDE LEVEL 92 MEQ/L (98-107); CREATININE FOR GFR 0.64 MG/DL (0.55-1.30); GLOMERULAR FILTRATION RATE > 60.0 (>45); GLUCOSE, FASTING 154 MG/DL (70-100); POTASSIUM SERUM 4.1 MEQ/L (3.5-5.1); SODIUM LEVEL 131 MEQ/L (136-145)
[2021-07-03] MEDS ORDERED: MAALOX 30 ML SUSP *UDC PO ONE (09:45)
[2021-07-03 09:57] LABS: CK-MB VALUE MASS 2.6 NG/ML (<3.6); MB/CK RELATIVE INDEX 7.43 (< OR =4)
[2021-07-03] MEDS: NS 1,000 ML IV SCH ×4 (10:43→23:36)
[2021-07-03] MEDS: FUROSEMIDE 40 MG TAB PO SCH (13:29)
[2021-07-03] MEDS ORDERED: PILL CUTTER 1 EACH XX PRN (13:30)
[2021-07-03] MEDS ORDERED: MAALOX 30 ML SUSP *UDC PO PRN (13:55)
[2021-07-03] MEDS: ROSUVASTATIN 10 MG TAB (CRESTOR) PO SCH (14:07)
[2021-07-03] MEDS ORDERED: cefTRIAXone SOD 1 GM in D5W MINI-BAG PLUS 50 ML IV SCH (15:00)
[2021-07-03] MEDS ORDERED: ONDANSETRON 4MG/2ML VIAL IV PRN (15:20)
[2021-07-03] MEDS ORDERED: AZITHROMYCIN INJ 500 MG, VIAL MATE ADAPTER 1 EACH in NS 250 ML IV SCH (16:00)
[2021-07-04] MEDS: IPRATROPIUM 0.5MG/ALBUTEROL 2.5MG INH SOL UD 3ML (DUONEB) NEB SCH ×5 (01:11→19:30)
[2021-07-04] MEDS: methylPREDNISolone 40MG 1ML VIAL IV SCH ×3 (01:25→18:30)
[2021-07-04] MEDS: NS 1,000 ML IV SCH (05:06)
[2021-07-04] MEDS: HEPARIN SOD (PORCINE) 5000UNITS/ML 1ML VIAL/SYRINGE SC SCH ×3 (05:06→23:07)
[2021-07-04 05:09] VITALS: BP 129/74
[2021-07-04 06:23] LABS: HEMATOCRIT 37.2 % (36.0-47.0); HEMOGLOBIN 11.4 g/dl (12.0-15.5); MEAN CORPUSCULAR HEMOGLOBIN 33.5 pg (27.0-33.0); MEAN CORPUSCULAR HGB CONC 30.6 g/dl (32.0-36.5); MEAN CORPUSCULAR VOLUME 109.4 fl (80.0-96.0); PLATELET COUNT, AUTOMATED 217 10^3/uL (150-450); WHITE BLOOD COUNT 9.4 10^3/uL (4.0-10.0)
[2021-07-04 06:56] LABS: BLOOD UREA NITROGEN 16 MG/DL (7-18); CALCIUM LEVEL 8.4 MG/DL (8.8-10.2); CARBON DIOXIDE LEVEL 34 MEQ/L (21-32); CHLORIDE LEVEL 98 MEQ/L (98-107); CREATININE FOR GFR 0.52 MG/DL (0.55-1.30); GLOMERULAR FILTRATION RATE > 60.0 (>45); GLUCOSE, FASTING 121 MG/DL (70-100); POTASSIUM SERUM 5.4 MEQ/L (3.5-5.1); SODIUM LEVEL 136 MEQ/L (136-145)
[2021-07-04] MEDS: NICOTINE 7 MG/24 HR TRANSDERMAL TD SCH (09:00)
[2021-07-04] MEDS: FUROSEMIDE 40 MG TAB PO SCH ×2 (09:00→10:06)
[2021-07-04] MEDS: MULTIVITAMINS/MINERALS THERAP 1 TAB PO SCH (10:06)
[2021-07-04] MEDS: THIAMINE 100 MG TAB PO SCH ×2 (10:06→20:40)
[2021-07-04] MEDS: FOLIC ACID 1 MG TAB PO SCH (10:06)
[2021-07-04] MEDS: ROSUVASTATIN 10 MG TAB (CRESTOR) PO SCH (10:07)
[2021-07-04] MEDS: HumaLOG INSULIN (NovoLOG) PER UNIT SC SCH ×4 (10:13→20:41)
[2021-07-04 10:48] LABS: BLOOD UREA NITROGEN 13 MG/DL (7-18); CALCIUM LEVEL 8.4 MG/DL (8.8-10.2); CARBON DIOXIDE LEVEL 33 MEQ/L (21-32); CHLORIDE LEVEL 98 MEQ/L (98-107); CREATININE FOR GFR 0.52 MG/DL (0.55-1.30); GLOMERULAR FILTRATION RATE > 60.0 (>45); GLUCOSE, FASTING 177 MG/DL (70-100); POTASSIUM SERUM 4.3 MEQ/L (3.5-5.1); SODIUM LEVEL 135 MEQ/L (136-145)
[2021-07-04 14:00] VITALS: BP 132/72
[2021-07-04 20:19] VITALS: BP 131/74
[2021-07-04] MEDS: ACETAMINOPHEN TAB 650MG DOSE (2X325MG) PO PRN (20:41)
[2021-07-05] MEDS: IPRATROPIUM 0.5MG/ALBUTEROL 2.5MG INH SOL UD 3ML (DUONEB) NEB SCH ×3 (00:43→13:13)
[2021-07-05] MEDS: methylPREDNISolone 40MG 1ML VIAL IV SCH ×2 (02:06→08:13)
[2021-07-05] MEDS: HEPARIN SOD (PORCINE) 5000UNITS/ML 1ML VIAL/SYRINGE SC SCH (05:00)
[2021-07-05 05:08] VITALS: BP 150/90
[2021-07-05] MEDS: FUROSEMIDE 40 MG TAB PO SCH (05:24)
[2021-07-05 06:15] VITALS: BP 143/78
[2021-07-05 07:15] LABS: HEMATOCRIT 40.1 % (36.0-47.0); HEMOGLOBIN 12.4 g/dl (12.0-15.5); MEAN CORPUSCULAR HEMOGLOBIN 33.2 pg (27.0-33.0); MEAN CORPUSCULAR HGB CONC 30.9 g/dl (32.0-36.5); MEAN CORPUSCULAR VOLUME 107.2 fl (80.0-96.0); PLATELET COUNT, AUTOMATED 221 10^3/uL (150-450); RED BLOOD COUNT 3.74 10^6/uL (4.00-5.40); WHITE BLOOD COUNT 7.5 10^3/uL (4.0-10.0)
[2021-07-05 07:42] LABS: BLOOD UREA NITROGEN 18 MG/DL (7-18); CALCIUM LEVEL 9.4 MG/DL (8.8-10.2); CARBON DIOXIDE LEVEL 34 MEQ/L (21-32); CHLORIDE LEVEL 92 MEQ/L (98-107); CREATININE FOR GFR 0.63 MG/DL (0.55-1.30); GLOMERULAR FILTRATION RATE > 60.0 (>45); GLUCOSE, FASTING 156 MG/DL (70-100); POTASSIUM SERUM 4.9 MEQ/L (3.5-5.1); SODIUM LEVEL 134 MEQ/L (136-145)
[2021-07-05] MEDS: ROSUVASTATIN 10 MG TAB (CRESTOR) PO SCH (08:12)
[2021-07-05] MEDS: MULTIVITAMINS/MINERALS THERAP 1 TAB PO SCH (08:12)
[2021-07-05] MEDS: FOLIC ACID 1 MG TAB PO SCH (08:12)
[2021-07-05] MEDS: HumaLOG INSULIN (NovoLOG) PER UNIT SC SCH ×2 (08:13→12:20)
[2021-07-05] MEDS: NICOTINE 7 MG/24 HR TRANSDERMAL TD SCH (08:13)
[2021-07-05] MEDS ORDERED: predniSONE 20 MG TAB PO SCH (09:00)
[2021-07-05] MEDS ORDERED: PRED20TA PO (10:27)
== END 2021-07-05 14:21 | disposition home or self-care (01) | DRG 191 ==
LOC: M ED 01:52 → M ED INP 01:53 → ENRESERV 16:02 → M MSPAV 17:25 → OBSVTOIN 07-03 09:46
PROVIDERS: ADMIT Internal Medicine; ATTEND Family Medicine
DX: J44.1 Chronic obstructive pulmonary disease with (acute) exacerbation (principal); E87.1 Hypo-osmolality and hyponatremia; E87.2 Acidosis; F17.210 Nicotine dependence, cigarettes, uncomplicated; Z79.899 Other long term (current) drug therapy; Z20.822 Contact with and (suspected) exposure to COVID-19; Z88.1 Allergy status to other antibiotic agents; F10.10 Alcohol abuse, uncomplicated; R07.89 Other chest pain; E11.9 Type 2 diabetes mellitus without complications; D72.829 Elevated white blood cell count, unspecified; I27.20 Pulmonary hypertension, unspecified; E78.5 Hyperlipidemia, unspecified; I50.810 Right heart failure, unspecified

== ENCOUNTER → 2022-05-01 | Outpatient (CLI) | payer OTHER ==
[~2022-05-01] MED LIST changes: +ALBU2.5V10 INH; +ALBU6.7H6 INH; -ALBU83IN INH; +IBUP200T46 PO; +LEVO1TAB40 PO; -LEVO750T13 PO; +PRED20TA PO; -PROV108A INH; +ROSU10TA6 PO; +SPIR1AER INH; +VENTAER INH
== END ==
LOC: M RAD 13:02
PROVIDERS: ATTEND Family Medicine
DX: J44.9 Chronic obstructive pulmonary disease, unspecified (principal)

== ENCOUNTER 2023-01-23 15:45 | Inpatient (IN) | payer OTHER ==
[~2023-01-23] VITALS: Ht 152.4 cm; Wt 52.0 kg
[~2023-01-23 15:45] MED LIST changes: +ACET1TAB55 PO; +ADV250INH INH; +ALBU8.5H INH; +AMLO1TAB24 PO; +BACI500O8 TOP; +GUAI600T12 PO; +INCR1INH INH; +PANT40TA29 PO; +SERT50TA29 PO; +VASEGEL6 TOP; +VITA100093 PO
[2023-01-23 17:05] LABS: BASO # 0.1 10^3/uL (0.0-0.2); BASO % 0.7 % (0.0-1.0); EOS # 0.2 10^3/uL (0.0-0.5); EOS % 2.5 % (0.0-3.0); HEMATOCRIT 35.5 % (36.0-47.0); HEMOGLOBIN 10.9 g/dl (12.0-15.5); LYMPH # 1.4 10^3/uL (1.5-5.0); LYMPH % 18.8 % (24.0-44.0); MEAN CORPUSCULAR HEMOGLOBIN 29.8 pg (27.0-33.0); MEAN CORPUSCULAR HGB CONC 30.7 g/dl (32.0-36.5); MONO # 0.8 10^3/uL (0.0-0.8); MONO % 10.5 % (2.0-8.0); NEUTROPHILS # 4.9 10^3/uL (1.5-8.5); NEUTROPHILS % 67.2 % (36.0-66.0); PLATELET COUNT, AUTOMATED 210 10^3/uL (150-450); RED BLOOD COUNT 3.66 10^6/uL (4.00-5.40); WHITE BLOOD COUNT 7.3 10^3/uL (4.0-10.0)
[2023-01-23 17:34] LABS: CPK CREATINE PHOSPHOKINASE 45 U/L (34-145)
[2023-01-23] MEDS ORDERED: IPRATROPIUM 0.5MG/ALBUTEROL 2.5MG INH SOL UD 3ML (DUONEB) NEB ONE (17:35)
[2023-01-23] MEDS ORDERED: ALBUTEROL SULFATE 2.5MG/0.5ML INH NEB SOLN INH ONE (17:35)
[2023-01-23 17:36] LABS: ALBUMIN 3.5 G/DL (3.2-5.2); ALKALINE PHOSPHATASE 107 U/L (46-116); ALT/SGPT 10 U/L (7.0-40); AST/SGOT < 8 U/L (<34); BILIRUBIN,DIRECT 0.2 MG/DL (<0.4); BILIRUBIN,TOTAL 0.6 MG/DL (0.3-1.2); BLOOD UREA NITROGEN 5 MG/DL (9-23); CALCIUM LEVEL 9.2 MG/DL (8.3-10.6); CARBON DIOXIDE LEVEL > 40.0 MMOL/L (20-31); CHLORIDE LEVEL 88 MMOL/L (98-107); CK-MB VALUE MASS < 1.0 NG/ML (<3.6); CREATININE FOR GFR 0.38 MG/DL (0.55-1.30); GLOMERULAR FILTRATION RATE > 60.0 (>45); GLUCOSE, FASTING 90 MG/DL (74-106); MB/CK RELATIVE INDEX 2.22 (< OR =4); POTASSIUM SERUM 4.8 MMOL/L (3.5-5.1); SODIUM LEVEL 132 MMOL/L (136-145); THYROID STIMULATING HORMONE 1.629 uIU/ML (0.55-4.78); THYROXINE (T4) 7.3 UG/DL (4.5-10.9); TOTAL PROTEIN 7.1 G/DL (5.7-8.2)
[2023-01-23 18:00] LABS: ABG BASE EXCESS 9.8 (-2.0-2.0); ABG HCO3 36.6 MMOL/L (22.0-26.0); ABG O2 SATURATION 96.6 % (95.0-99.0); ABG PARTIAL PRESSURE CO2 60.8 mmHg (35.0-45.0); ABG PARTIAL PRESSURE O2 85.2 mmHg (75.0-100.0); ABG STANDARD HCO3 33.5 MMOL/L. (22.0-26.0); ABG TOTAL CO2 38.4 MMOL/L (23.0-31.0); ABG pH (ARTERIAL) 7.397 UNITS (7.350-7.450)
[2023-01-23 18:35] LABS: CK-MB VALUE MASS < 1.0 NG/ML (<3.6)
[2023-01-23 18:36] LABS: CPK CREATINE PHOSPHOKINASE 43 U/L (34-145); MB/CK RELATIVE INDEX 2.32 (< OR =4)
[2023-01-23] MEDS ORDERED: ISOVUE-370 76% 100ML VIAL As Ordered ONE (18:54)
[2023-01-23] MEDS ORDERED: methylPREDNISolone 125MG 2ML VIAL IV ONE (19:50)
[2023-01-23] MEDS ORDERED: ADV250INH INH (21:58)
[2023-01-23] MEDS ORDERED: MUCI600T31 PO (21:58)
[2023-01-23] MEDS ORDERED: HOME MED LIST COMPLETE! XX SCH (22:00)
[2023-01-23] MEDS ORDERED: MAALOX 30 ML SUSP *UDC PO PRN (22:20)
[2023-01-23] MEDS ORDERED: MOM 30ML SUSPENSION UDC PO PRN (22:20)
[2023-01-23 22:59] LABS: PROCALCITONIN <0.04 ng/ml
[2023-01-23] MEDS ORDERED: NICOTINE 21MG/24HR 1 EA TRANSDERMAL TD ONE (23:00)
[2023-01-23] MEDS: IPRATROPIUM 0.5MG/ALBUTEROL 2.5MG INH SOL UD 3ML (DUONEB) NEB SCH (23:11)
[2023-01-24] VITALS (7 sets, daily range): BP systolic 132–152; BP diastolic 84–87; TEMP 97.5–99.5; O2SAT 90–96
[2023-01-24] MEDS: guaiFENesin ER 600 MG TAB PO SCH ×3 (00:37→20:37)
[2023-01-24] MEDS: ACETAMINOPHEN TAB 650MG DOSE (2X325MG) PO PRN (00:47)
[2023-01-24] MEDS: rOPINIRole 1MG TAB PO PRN ×2 (01:06→20:37)
[2023-01-24] MEDS ORDERED: methylPREDNISolone 40MG 1ML VIAL IV SCH (02:00)
[2023-01-24] MEDS: IPRATROPIUM 0.5MG/ALBUTEROL 2.5MG INH SOL UD 3ML (DUONEB) NEB SCH ×6 (03:33→23:04)
[2023-01-24 07:19] LABS: HEMATOCRIT 34.4 % (36.0-47.0); HEMOGLOBIN 10.5 g/dl (12.0-15.5); MEAN CORPUSCULAR HEMOGLOBIN 29.4 pg (27.0-33.0); MEAN CORPUSCULAR HGB CONC 30.5 g/dl (32.0-36.5); MEAN CORPUSCULAR VOLUME 96.4 fl (80.0-96.0); PLATELET COUNT, AUTOMATED 198 10^3/uL (150-450); RED BLOOD COUNT 3.57 10^6/uL (4.00-5.40); WHITE BLOOD COUNT 2.9 10^3/uL (4.0-10.0)
[2023-01-24] MEDS: methylPREDNISolone 40MG 1ML VIAL IV SCH ×2 (07:20→20:37)
[2023-01-24 07:44] LABS: BLOOD UREA NITROGEN 7 MG/DL (9-23); CALCIUM LEVEL 9.1 MG/DL (8.3-10.6); CARBON DIOXIDE LEVEL > 40.0 MMOL/L (20-31); CHLORIDE LEVEL 90 MMOL/L (98-107); CREATININE FOR GFR 0.37 MG/DL (0.55-1.30); GLOMERULAR FILTRATION RATE > 60.0 (>45); GLUCOSE, FASTING 155 MG/DL (74-106); MAGNESIUM LEVEL 1.7 MG/DL (1.8-2.4); POTASSIUM SERUM 4.5 MMOL/L (3.5-5.1); SODIUM LEVEL 133 MMOL/L (136-145)
[2023-01-24] MEDS ORDERED: BUDESONIDE 0.5 MG/2 ML INHALATION SUSPENSION INH SCH (08:00)
[2023-01-24] MEDS ORDERED: AZITHROMYCIN INJ 500 MG, VIAL MATE ADAPTER 1 EACH in NS 250 ML IV SCH (08:00)
[2023-01-24] MEDS: ENOXAPARIN 40MG/0.4ML SYRINGE (J1650 PER 10MG) SC SCH (08:12)
[2023-01-24] MEDS: PANTOPRAZOLE 40MG TAB (PROTONIX) PO SCH (08:12)
[2023-01-24] MEDS: SERTRALINE HCL 50 MG TAB PO SCH (08:12)
[2023-01-24] MEDS: TIOTROPIUM INHALER/CAPSULE (SPIRIVA) INH SCH (08:18)
[2023-01-24] MEDS: ADVAIR HFA 115/21MCG INHALER INH SCH ×2 (08:19→19:52)
[2023-01-24] MEDS: MAG SULF 1GM/100ML (MAG RUN) 1 GM in IV 1 EA IV SCH ×2 (10:00→11:38)
[2023-01-24] MEDS ORDERED: MAG SULF 1GM/100ML (MAG RUN) 1 GM in IV 1 EA IV ONE (14:00)
[2023-01-25] VITALS (7 sets, daily range): BP systolic 134–157; BP diastolic 80–95; TEMP 97.9–98.8; O2SAT 93–97
[2023-01-25] MEDS: IPRATROPIUM 0.5MG/ALBUTEROL 2.5MG INH SOL UD 3ML (DUONEB) NEB SCH ×6 (03:27→23:50)
[2023-01-25 07:07] LABS: BASO % 0.1 % (0.0-1.0); HEMATOCRIT 33.6 % (36.0-47.0); HEMOGLOBIN 10.5 g/dl (12.0-15.5); LYMPH # 1.2 10^3/uL (1.5-5.0); LYMPH % 14.7 % (24.0-44.0); MEAN CORPUSCULAR HEMOGLOBIN 30.7 pg (27.0-33.0); MEAN CORPUSCULAR HGB CONC 31.3 g/dl (32.0-36.5); MEAN CORPUSCULAR VOLUME 98.2 fl (80.0-96.0); MONO # 0.6 10^3/uL (0.0-0.8); MONO % 7.6 % (2.0-8.0); NEUTROPHILS # 6.4 10^3/uL (1.5-8.5); NEUTROPHILS % 77.4 % (36.0-66.0); PLATELET COUNT, AUTOMATED 231 10^3/uL (150-450); RED BLOOD COUNT 3.42 10^6/uL (4.00-5.40); WHITE BLOOD COUNT 8.3 10^3/uL (4.0-10.0)
[2023-01-25] MEDS: ADVAIR HFA 115/21MCG INHALER INH SCH ×2 (07:21→19:59)
[2023-01-25] MEDS: TIOTROPIUM INHALER/CAPSULE (SPIRIVA) INH SCH (07:21)
[2023-01-25 07:33] LABS: BLOOD UREA NITROGEN 9 MG/DL (9-23); CALCIUM LEVEL 8.8 MG/DL (8.3-10.6); CARBON DIOXIDE LEVEL 34 MMOL/L (20-31); CHLORIDE LEVEL 91 MMOL/L (98-107); CREATININE FOR GFR 0.45 MG/DL (0.55-1.30); GLOMERULAR FILTRATION RATE > 60.0 (>45); GLUCOSE, FASTING 124 MG/DL (74-106); MAGNESIUM LEVEL 1.5 MG/DL (1.8-2.4); POTASSIUM SERUM 4.4 MMOL/L (3.5-5.1); SODIUM LEVEL 130 MMOL/L (136-145)
[2023-01-25] MEDS: MAG SULF 1GM/100ML (MAG RUN) 1 GM in IV 1 EA IV SCH ×3 (09:13→11:14)
[2023-01-25] MEDS: PANTOPRAZOLE 40MG TAB (PROTONIX) PO SCH (09:14)
[2023-01-25] MEDS: guaiFENesin ER 600 MG TAB PO SCH ×2 (09:14→20:11)
[2023-01-25] MEDS: AZITHROMYCIN 250MG TABLET PO SCH (09:14)
[2023-01-25] MEDS: SERTRALINE HCL 50 MG TAB PO SCH (09:14)
[2023-01-25] MEDS: methylPREDNISolone 40MG 1ML VIAL IV SCH ×2 (09:15→20:11)
[2023-01-25] MEDS: ENOXAPARIN 40MG/0.4ML SYRINGE (J1650 PER 10MG) SC SCH (09:15)
[2023-01-25] MEDS: rOPINIRole 1MG TAB PO PRN (20:11)
[2023-01-25] MEDS: ACETAMINOPHEN TAB 650MG DOSE (2X325MG) PO PRN (20:11)
[2023-01-26 01:59] VITALS: BP 131/68; TEMP 98.1; O2SAT 96
[2023-01-26] MEDS: IPRATROPIUM 0.5MG/ALBUTEROL 2.5MG INH SOL UD 3ML (DUONEB) NEB SCH ×2 (04:14→07:12)
[2023-01-26 05:53] LABS: HEMATOCRIT 34.8 % (36.0-47.0); HEMOGLOBIN 10.5 g/dl (12.0-15.5); MEAN CORPUSCULAR HEMOGLOBIN 29.2 pg (27.0-33.0); MEAN CORPUSCULAR HGB CONC 30.2 g/dl (32.0-36.5); MEAN CORPUSCULAR VOLUME 96.9 fl (80.0-96.0); PLATELET COUNT, AUTOMATED 242 10^3/uL (150-450); RED BLOOD COUNT 3.59 10^6/uL (4.00-5.40); WHITE BLOOD COUNT 7.3 10^3/uL (4.0-10.0)
[2023-01-26 06:05] VITALS: BP_SYST 172; BP_SYST 180; BP_DIAS 90; BP_DIAS 94; TEMP 98.1; O2SAT 99
[2023-01-26 06:27] LABS: BLOOD UREA NITROGEN 11 MG/DL (9-23); CALCIUM LEVEL 8.9 MG/DL (8.3-10.6); CARBON DIOXIDE LEVEL 32 MMOL/L (20-31); CHLORIDE LEVEL 88 MMOL/L (98-107); CREATININE FOR GFR 0.38 MG/DL (0.55-1.30); GLOMERULAR FILTRATION RATE > 60.0 (>45); GLUCOSE, FASTING 121 MG/DL (74-106); MAGNESIUM LEVEL 1.8 MG/DL (1.8-2.4); POTASSIUM SERUM 4.7 MMOL/L (3.5-5.1); SODIUM LEVEL 128 MMOL/L (136-145)
[2023-01-26] MEDS ORDERED: amLODIPine 5 MG TAB PO ONE (06:30)
[2023-01-26 06:33] VITALS: BP 180/90
[2023-01-26] MEDS: TIOTROPIUM INHALER/CAPSULE (SPIRIVA) INH SCH (07:12)
[2023-01-26] MEDS: ADVAIR HFA 115/21MCG INHALER INH SCH (07:13)
[2023-01-26] MEDS: ENOXAPARIN 40MG/0.4ML SYRINGE (J1650 PER 10MG) SC SCH (09:00)
[2023-01-26 09:30] VITALS: BP 132/78
[2023-01-26] MEDS: guaiFENesin ER 600 MG TAB PO SCH (09:36)
[2023-01-26] MEDS: AZITHROMYCIN 250MG TABLET PO SCH (09:36)
[2023-01-26] MEDS: PANTOPRAZOLE 40MG TAB (PROTONIX) PO SCH (09:36)
[2023-01-26] MEDS: SERTRALINE HCL 50 MG TAB PO SCH (09:36)
[2023-01-26 10:00] VITALS: BP 131/78; TEMP 98.1; O2SAT 96
[2023-01-26] MEDS ORDERED: NORV5TAB PO (10:23)
[2023-01-26] MEDS ORDERED: PRED20TA PO (10:23)
[2023-01-26] MEDS ORDERED: ALBU8.5H INH (10:23)
[2023-01-26] MEDS ORDERED: PRED10TA2 PO (10:23)
[2023-01-26] MEDS ORDERED: AZIT500T5 PO (10:23)
[2023-01-26] MEDS: methylPREDNISolone 40MG 1ML VIAL IV SCH (11:36)
[2023-01-26] MEDS ORDERED: PANT40TA29 PO ×2 (13:48→13:50)
[2023-01-27] MEDS ORDERED: amLODIPine 5 MG TAB PO SCH (09:00)
== END 2023-01-26 12:30 | disposition home health service (06) | DRG 140 ==
LOC: M ED 15:45 → M ED INP 22:16 → ENRESERV 22:58 → M MSPAV 01-24 00:18
PROVIDERS: ADMIT Family Medicine; ATTEND Internal Medicine
DX: J44.1 Chronic obstructive pulmonary disease with (acute) exacerbation (principal); J96.21 Acute and chronic respiratory failure with hypoxia; I11.0 Hypertensive heart disease with heart failure; I50.32 Chronic diastolic (congestive) heart failure; J96.22 Acute and chronic respiratory failure with hypercapnia; D75.89 Other specified diseases of blood and blood-forming organs; E87.1 Hypo-osmolality and hyponatremia; E83.42 Hypomagnesemia; F39 Unspecified mood [affective] disorder; F17.210 Nicotine dependence, cigarettes, uncomplicated; K21.9 Gastro-esophageal reflux disease without esophagitis; J20.8 Acute bronchitis due to other specified organisms; D64.9 Anemia, unspecified; F10.10 Alcohol abuse, uncomplicated; Z99.81 Dependence on supplemental oxygen; Z86.718 Personal history of other venous thrombosis and embolism; Z79.899 Other long term (current) drug therapy; Z88.1 Allergy status to other antibiotic agents; Z88.8 Allergy status to other drugs, medicaments and biological substances

== ENCOUNTER → 2023-02-07 | Outpatient (REF) ==
[~2023-02-07] MED LIST changes: +AZIT500T5 PO; +MUCI600T31 PO; +NORV5TAB PO
[2023-02-07 13:28] LABS: BLOOD UREA NITROGEN 6 MG/DL (9-23); CALCIUM LEVEL 9.2 MG/DL (8.3-10.6); CARBON DIOXIDE LEVEL > 40.0 MMOL/L (20-31); CHLORIDE LEVEL 93 MMOL/L (98-107); GLOMERULAR FILTRATION RATE > 60.0 (>45); GLUCOSE, FASTING 95 MG/DL (74-106); POTASSIUM SERUM 4.7 MMOL/L (3.5-5.1); SODIUM LEVEL 135 MMOL/L (136-145)
== END ==
LOC: M SHH 12:34
PROVIDERS: ATTEND Internal Medicine
DX: E87.1 Hypo-osmolality and hyponatremia (principal)

== ENCOUNTER 2023-03-15 16:29 | Inpatient (IN) | payer MEDICAID, OTHER ==
[~2023-03-15] VITALS: Ht 152.4 cm; Wt 53.1 kg
[~2023-03-15 16:29] MED LIST changes: +AMLO1TAB25 PO
[2023-03-15] MEDS ORDERED: ASPI-226 (16:50)
[2023-03-15] MEDS ORDERED: ZOLO100T (16:50)
[2023-03-15 17:30] LABS: VENOUS BASE EXCESS 14.2 (-2.0-2.0); VENOUS HCO3 42.7 MMOL/L (23.0-27.0); VENOUS O2 SATURATION 55.5 % (60.0-80.0); VENOUS PARTIAL PRESSURE CO2 81.1 mmHg (38.0-50.0); VENOUS PH 7.339 UNITS (7.330-7.430); VENOUS TOTAL CO2 45.2 MMOL/L (24.0-28.0)
[2023-03-15 17:57] LABS: BASO % 0.5 % (0.0-1.0); EOS # 0.1 10^3/uL (0.0-0.5); EOS % 1.2 % (0.0-3.0); HEMATOCRIT 29.8 % (36.0-47.0); LYMPH # 1.5 10^3/uL (1.5-5.0); LYMPH % 24.9 % (24.0-44.0); MEAN CORPUSCULAR HEMOGLOBIN 30.3 pg (27.0-33.0); MEAN CORPUSCULAR HGB CONC 30.2 g/dl (32.0-36.5); MEAN CORPUSCULAR VOLUME 100.3 fl (80.0-96.0); MONO # 0.5 10^3/uL (0.0-0.8); MONO % 8.4 % (2.0-8.0); NEUTROPHILS # 3.8 10^3/uL (1.5-8.5); NEUTROPHILS % 64.7 % (36.0-66.0); PLATELET COUNT, AUTOMATED 350 10^3/uL (150-450); RED BLOOD COUNT 2.97 10^6/uL (4.00-5.40); WHITE BLOOD COUNT 5.9 10^3/uL (4.0-10.0)
[2023-03-15 18:02] LABS: CPK CREATINE PHOSPHOKINASE 22 U/L (34-145)
[2023-03-15 18:05] LABS: RSV AMPLIFICATION NEGATIVE (NEGATIVE)
[2023-03-15 18:06] LABS: ALBUMIN 2.9 G/DL (3.2-5.2); ALKALINE PHOSPHATASE 85 U/L (46-116); ALT/SGPT 20 U/L (7.0-40); AST/SGOT 28 U/L (<34); BILIRUBIN,DIRECT < 0.1 MG/DL (<0.4); BILIRUBIN,TOTAL 0.2 MG/DL (0.3-1.2); BLOOD UREA NITROGEN 7 MG/DL (9-23); CALCIUM LEVEL 9.3 MG/DL (8.3-10.6); CARBON DIOXIDE LEVEL > 40.0 MMOL/L (20-31); CHLORIDE LEVEL 89 MMOL/L (98-107); CK-MB VALUE MASS < 1.0 NG/ML (<3.6); CREATININE FOR GFR 0.43 MG/DL (0.55-1.30); GLOMERULAR FILTRATION RATE > 60.0 (>45); GLUCOSE, FASTING 87 MG/DL (74-106); MB/CK RELATIVE INDEX 4.54 (< OR =4); SODIUM LEVEL 134 MMOL/L (136-145); THYROXINE (T4) 7.7 UG/DL (4.5-10.9); TOTAL PROTEIN 5.9 G/DL (5.7-8.2)
[2023-03-15] MEDS ORDERED: ISOVUE-370 76% 100ML VIAL As Ordered ONE (20:15)
[2023-03-15] MEDS: IPRATROPIUM 0.5MG/ALBUTEROL 2.5MG INH SOL UD 3ML (DUONEB) NEB PRN ×2 (20:36→20:37)
[2023-03-15] MEDS ORDERED: methylPREDNISolone 125MG 2ML VIAL IV ONE (21:05)
[2023-03-15 22:38] LABS: PROCALCITONIN <0.04 ng/ml
[2023-03-15] MEDS ORDERED: ALBU8.5H INH (22:47)
[2023-03-15] MEDS ORDERED: ZOLO100T PO (22:47)
[2023-03-15] MEDS ORDERED: ALBU2.5V10 INH (22:47)
[2023-03-15] MEDS ORDERED: ASPI-161 PO (22:47)
[2023-03-15] MEDS ORDERED: FURO40TA2 PO (22:47)
[2023-03-15] MEDS ORDERED: HOME MED LIST COMPLETE! XX SCH (22:50)
[2023-03-16] MEDS ORDERED: NS 500 ML IV SCH (00:25)
[2023-03-16 01:11] VITALS: BP 164/98; TEMP 97.2; O2SAT 96
[2023-03-16] MEDS: SERTRALINE 100 MG TAB PO SCH ×2 (01:27→21:02)
[2023-03-16] MEDS: IPRATROPIUM 0.5MG/ALBUTEROL 2.5MG INH SOL UD 3ML (DUONEB) NEB SCH ×4 (02:55→19:45)
[2023-03-16] MEDS ORDERED: methylPREDNISolone 125MG 2ML VIAL IV SCH (03:00)
[2023-03-16] MEDS: HEPARIN SOD (PORCINE) 5000UNITS/ML 1ML VIAL/SYRINGE SC SCH ×2 (06:00→14:40)
[2023-03-16 06:05] VITALS: BP 127/77; TEMP 97.3; O2SAT 97
[2023-03-16] MEDS ORDERED: FUROSEMIDE 40 MG TAB PO PRN (07:15)
[2023-03-16 07:25] LABS: HEMATOCRIT 28.2 % (36.0-47.0); HEMOGLOBIN 8.5 g/dl (12.0-15.5); MEAN CORPUSCULAR HEMOGLOBIN 30.7 pg (27.0-33.0); MEAN CORPUSCULAR HGB CONC 30.1 g/dl (32.0-36.5); MEAN CORPUSCULAR VOLUME 101.8 fl (80.0-96.0); PLATELET COUNT, AUTOMATED 351 10^3/uL (150-450); RED BLOOD COUNT 2.77 10^6/uL (4.00-5.40); WHITE BLOOD COUNT 4.2 10^3/uL (4.0-10.0)
[2023-03-16 07:47] LABS: BLOOD UREA NITROGEN 10 MG/DL (9-23); CALCIUM LEVEL 9.1 MG/DL (8.3-10.6); CARBON DIOXIDE LEVEL > 40.0 MMOL/L (20-31); CHLORIDE LEVEL 94 MMOL/L (98-107); CREATININE FOR GFR 0.39 MG/DL (0.55-1.30); GLOMERULAR FILTRATION RATE > 60.0 (>45); GLUCOSE, FASTING 242 MG/DL (74-106); POTASSIUM SERUM 4.1 MMOL/L (3.5-5.1); SODIUM LEVEL 136 MMOL/L (136-145)
[2023-03-16] MEDS: ADVAIR HFA 115/21MCG INHALER INH SCH ×2 (08:03→19:45)
[2023-03-16] MEDS ORDERED: OMEPRAZOLE 20MG CAP PO SCH (09:00)
[2023-03-16] MEDS: ALBUTEROL SULFATE 2.5MG/0.5ML INH NEB SOLN NEB PRN (09:23)
[2023-03-16] MEDS: ASPIRIN 81MG ENTERIC TABLET PO SCH (10:13)
[2023-03-16] MEDS: methylPREDNISolone 125MG 2ML VIAL IV SCH ×2 (10:14→17:55)
[2023-03-16] MEDS: PANTOPRAZOLE 40MG TAB (PROTONIX) PO SCH (10:14)
[2023-03-16] MEDS: guaiFENesin ER TABLET 600 MG TAB PO SCH ×2 (10:14→21:02)
[2023-03-16 14:00] VITALS: BP 134/82; TEMP 98.2; O2SAT 96
[2023-03-16] MEDS: ACETAMINOPHEN TAB 650MG DOSE (2X325MG) PO PRN (15:18)
[2023-03-16] MEDS ORDERED: DEXTROSE 50% 50ML SYRINGE IV PRN (15:50)
[2023-03-16] MEDS ORDERED: GLUCOSE 4GM CHEW TABLET PO PRN (15:50)
[2023-03-16] MEDS ORDERED: GLUCAGON INJ 1MG VIAL SC PRN (15:50)
[2023-03-16 16:45] LABS: PROTHROMBIN TIME 12.9 SECONDS (12.5-14.5)
[2023-03-16 16:46] LABS: PARTIAL THROMBOPLASTIN TIME 25.5 SECONDS (24.8-34.2)
[2023-03-16] MEDS: INSULIN LISPRO (NovoLOG) PER UNIT SC SCH ×2 (17:55→21:00)
[2023-03-16] MEDS: LEVEMIR (INSULIN DETEMIR) 1 UNITS/0.01ML SC SCH (17:56)
[2023-03-16] MEDS ORDERED: CALCIUM CARBONATE 500 MG CHEW U/D PO PRN (18:10)
[2023-03-16] MEDS: ENOXAPARIN 40MG/0.4ML SYRINGE (J1650 PER 10MG) SC SCH (21:02)
[2023-03-16 21:07] VITALS: BP 144/82; TEMP 98.1; O2SAT 94
[2023-03-17] MEDS: IPRATROPIUM 0.5MG/ALBUTEROL 2.5MG INH SOL UD 3ML (DUONEB) NEB SCH ×4 (01:24→20:18)
[2023-03-17] MEDS: methylPREDNISolone 125MG 2ML VIAL IV SCH ×3 (02:30→19:23)
[2023-03-17 05:45] VITALS: BP 152/90; TEMP 98.1; O2SAT 97
[2023-03-17 06:18] LABS: HEMATOCRIT 26.4 % (36.0-47.0); HEMOGLOBIN 7.9 g/dl (12.0-15.5); MEAN CORPUSCULAR HGB CONC 29.9 g/dl (32.0-36.5); MEAN CORPUSCULAR VOLUME 100.4 fl (80.0-96.0); PLATELET COUNT, AUTOMATED 305 10^3/uL (150-450); RED BLOOD COUNT 2.63 10^6/uL (4.00-5.40); WHITE BLOOD COUNT 8.2 10^3/uL (4.0-10.0)
[2023-03-17 06:50] LABS: ALBUMIN 2.7 G/DL (3.2-5.2); ALKALINE PHOSPHATASE 68 U/L (46-116); ALT/SGPT 16 U/L (7.0-40); AST/SGOT 13 U/L (<34); BILIRUBIN,TOTAL 0.2 MG/DL (0.3-1.2); BLOOD UREA NITROGEN 8 MG/DL (9-23); CALCIUM LEVEL 8.7 MG/DL (8.3-10.6); CARBON DIOXIDE LEVEL 39 MMOL/L (20-31); CHLORIDE LEVEL 93 MMOL/L (98-107); GLOMERULAR FILTRATION RATE > 60.0 (>45); GLUCOSE, FASTING 119 MG/DL (74-106); POTASSIUM SERUM 4.2 MMOL/L (3.5-5.1); SODIUM LEVEL 136 MMOL/L (136-145); TOTAL PROTEIN 5.7 G/DL (5.7-8.2)
[2023-03-17] MEDS: ADVAIR HFA 115/21MCG INHALER INH SCH ×2 (07:26→20:18)
[2023-03-17 08:08] LABS: IRON (FE) 21 UG/DL (50-170); TOTAL IRON BINDING CAPACITY 348 UG/DL (250-425)
[2023-03-17] MEDS: PANTOPRAZOLE 40MG TAB (PROTONIX) PO SCH (08:56)
[2023-03-17] MEDS: guaiFENesin ER TABLET 600 MG TAB PO SCH ×2 (08:56→22:04)
[2023-03-17] MEDS: ASPIRIN 81MG ENTERIC TABLET PO SCH (08:56)
[2023-03-17] MEDS: LEVEMIR (INSULIN DETEMIR) 1 UNITS/0.01ML SC SCH (08:57)
[2023-03-17] MEDS: INSULIN LISPRO (NovoLOG) PER UNIT SC SCH ×4 (08:57→21:00)
[2023-03-17] MEDS: FERROUS SULFATE 325MG TAB PO SCH ×2 (09:00→22:04)
[2023-03-17] MEDS: DOCUSATE SODIUM 100MG CAPSULE PO SCH ×2 (09:00→22:04)
[2023-03-17] MEDS ORDERED: OMEPRAZOLE 20MG CAP PO SCH (09:00)
[2023-03-17] MEDS: ACETAMINOPHEN TAB 650MG DOSE (2X325MG) PO PRN (09:04)
[2023-03-17] MEDS ORDERED: ONDANSETRON 4MG TAB PO PRN (12:55)
[2023-03-17 14:00] VITALS: BP 141/91; TEMP 97.7; O2SAT 91
[2023-03-17 20:21] VITALS: O2SAT 91
[2023-03-17 20:45] VITALS: BP 146/95; TEMP 97.5; O2SAT 98
[2023-03-17] MEDS: SERTRALINE 100 MG TAB PO SCH (22:04)
[2023-03-17] MEDS: ENOXAPARIN 40MG/0.4ML SYRINGE (J1650 PER 10MG) SC SCH (22:05)
[2023-03-18] MEDS: IPRATROPIUM 0.5MG/ALBUTEROL 2.5MG INH SOL UD 3ML (DUONEB) NEB SCH ×4 (02:19→19:19)
[2023-03-18] MEDS: methylPREDNISolone 125MG 2ML VIAL IV SCH ×2 (03:17→15:13)
[2023-03-18 05:30] VITALS: BP 148/94; TEMP 97; O2SAT 96
[2023-03-18 05:58] LABS: HEMATOCRIT 27.6 % (36.0-47.0); HEMOGLOBIN 8.1 g/dl (12.0-15.5); MEAN CORPUSCULAR HGB CONC 29.3 g/dl (32.0-36.5); MEAN CORPUSCULAR VOLUME 102.2 fl (80.0-96.0); PLATELET COUNT, AUTOMATED 300 10^3/uL (150-450); WHITE BLOOD COUNT 7.7 10^3/uL (4.0-10.0)
[2023-03-18 06:30] LABS: ALBUMIN 2.7 G/DL (3.2-5.2); ALKALINE PHOSPHATASE 61 U/L (46-116); ALT/SGPT 13 U/L (7.0-40); AST/SGOT 11 U/L (<34); BILIRUBIN,TOTAL 0.2 MG/DL (0.3-1.2); BLOOD UREA NITROGEN 12 MG/DL (9-23); CALCIUM LEVEL 8.8 MG/DL (8.3-10.6); CARBON DIOXIDE LEVEL > 40.0 MMOL/L (20-31); CHLORIDE LEVEL 94 MMOL/L (98-107); CREATININE FOR GFR 0.42 MG/DL (0.55-1.30); GLOMERULAR FILTRATION RATE > 60.0 (>45); GLUCOSE, FASTING 109 MG/DL (74-106); POTASSIUM SERUM 4.7 MMOL/L (3.5-5.1); SODIUM LEVEL 136 MMOL/L (136-145); TOTAL PROTEIN 5.6 G/DL (5.7-8.2)
[2023-03-18] MEDS: ADVAIR HFA 115/21MCG INHALER INH SCH ×2 (07:31→19:19)
[2023-03-18] MEDS: FERROUS SULFATE 325MG TAB PO SCH ×2 (09:09→20:10)
[2023-03-18] MEDS: DOCUSATE SODIUM 100MG CAPSULE PO SCH ×2 (09:09→20:10)
[2023-03-18] MEDS: guaiFENesin ER TABLET 600 MG TAB PO SCH ×2 (09:09→20:10)
[2023-03-18] MEDS: LEVEMIR (INSULIN DETEMIR) 1 UNITS/0.01ML SC SCH (09:09)
[2023-03-18] MEDS: ASPIRIN 81MG ENTERIC TABLET PO SCH (09:09)
[2023-03-18] MEDS: PANTOPRAZOLE 40MG TAB (PROTONIX) PO SCH (09:09)
[2023-03-18] MEDS: INSULIN LISPRO (NovoLOG) PER UNIT SC SCH ×4 (09:10→20:49)
[2023-03-18] MEDS: ALBUTEROL SULFATE 2.5MG/0.5ML INH NEB SOLN NEB PRN (09:18)
[2023-03-18 15:01] VITALS: O2SAT 93
[2023-03-18] MEDS: ENOXAPARIN 40MG/0.4ML SYRINGE (J1650 PER 10MG) SC SCH (20:10)
[2023-03-18] MEDS: SERTRALINE 100 MG TAB PO SCH (20:10)
[2023-03-18 20:45] VITALS: BP 142/83; TEMP 97.3; O2SAT 90
[2023-03-19] MEDS: IPRATROPIUM 0.5MG/ALBUTEROL 2.5MG INH SOL UD 3ML (DUONEB) NEB SCH ×4 (00:54→19:18)
[2023-03-19] MEDS: methylPREDNISolone 125MG 2ML VIAL IV SCH ×2 (02:36→14:43)
[2023-03-19 05:44] VITALS: BP 159/88; TEMP 97.9; O2SAT 97
[2023-03-19 06:11] LABS: HEMATOCRIT 27.7 % (36.0-47.0); HEMOGLOBIN 8.2 g/dl (12.0-15.5); MEAN CORPUSCULAR HEMOGLOBIN 30.3 pg (27.0-33.0); MEAN CORPUSCULAR HGB CONC 29.6 g/dl (32.0-36.5); MEAN CORPUSCULAR VOLUME 102.2 fl (80.0-96.0); PLATELET COUNT, AUTOMATED 316 10^3/uL (150-450); RED BLOOD COUNT 2.71 10^6/uL (4.00-5.40); WHITE BLOOD COUNT 8.4 10^3/uL (4.0-10.0)
[2023-03-19 06:47] LABS: ALBUMIN 2.8 G/DL (3.2-5.2); ALKALINE PHOSPHATASE 61 U/L (46-116); ALT/SGPT 15 U/L (7.0-40); AST/SGOT 11 U/L (<34); BILIRUBIN,TOTAL 0.2 MG/DL (0.3-1.2); BLOOD UREA NITROGEN 22 MG/DL (9-23); CALCIUM LEVEL 9.2 MG/DL (8.3-10.6); CARBON DIOXIDE LEVEL > 40.0 MMOL/L (20-31); CHLORIDE LEVEL 91 MMOL/L (98-107); CREATININE FOR GFR 0.41 MG/DL (0.55-1.30); GLOMERULAR FILTRATION RATE > 60.0 (>45); GLUCOSE, FASTING 95 MG/DL (74-106); POTASSIUM SERUM 5.1 MMOL/L (3.5-5.1); SODIUM LEVEL 135 MMOL/L (136-145); TOTAL PROTEIN 5.6 G/DL (5.7-8.2)
[2023-03-19] MEDS: INSULIN LISPRO (NovoLOG) PER UNIT SC SCH ×4 (07:30→21:00)
[2023-03-19] MEDS: ADVAIR HFA 115/21MCG INHALER INH SCH ×2 (08:33→19:18)
[2023-03-19] MEDS: ACETAMINOPHEN TAB 650MG DOSE (2X325MG) PO PRN (09:36)
[2023-03-19] MEDS: LEVEMIR (INSULIN DETEMIR) 1 UNITS/0.01ML SC SCH (09:36)
[2023-03-19 10:00] VITALS: BP 155/90; TEMP 97.9; O2SAT 90
[2023-03-19] MEDS: ASPIRIN 81MG ENTERIC TABLET PO SCH (10:11)
[2023-03-19] MEDS: PANTOPRAZOLE 40MG TAB (PROTONIX) PO SCH (10:11)
[2023-03-19] MEDS: guaiFENesin ER TABLET 600 MG TAB PO SCH ×2 (10:12→21:03)
[2023-03-19] MEDS: FERROUS SULFATE 325MG TAB PO SCH ×2 (10:14→21:03)
[2023-03-19] MEDS: DOCUSATE SODIUM 100MG CAPSULE PO SCH ×2 (10:14→21:03)
[2023-03-19 14:00] VITALS: BP 128/79; TEMP 98.1; O2SAT 94
[2023-03-19 21:02] VITALS: BP 130/64; TEMP 98.2; O2SAT 94
[2023-03-19] MEDS: SERTRALINE 100 MG TAB PO SCH (21:03)
[2023-03-19] MEDS: ENOXAPARIN 40MG/0.4ML SYRINGE (J1650 PER 10MG) SC SCH (21:04)
[2023-03-20] MEDS: IPRATROPIUM 0.5MG/ALBUTEROL 2.5MG INH SOL UD 3ML (DUONEB) NEB SCH ×4 (01:01→19:34)
[2023-03-20] MEDS: methylPREDNISolone 125MG 2ML VIAL IV SCH (03:20)
[2023-03-20 06:00] VITALS: BP 147/89; TEMP 97.7; O2SAT 97
[2023-03-20 06:21] LABS: HEMATOCRIT 26.9 % (36.0-47.0); MEAN CORPUSCULAR HEMOGLOBIN 30.5 pg (27.0-33.0); MEAN CORPUSCULAR HGB CONC 29.7 g/dl (32.0-36.5); MEAN CORPUSCULAR VOLUME 102.7 fl (80.0-96.0); PLATELET COUNT, AUTOMATED 314 10^3/uL (150-450); RED BLOOD COUNT 2.62 10^6/uL (4.00-5.40); WHITE BLOOD COUNT 7.1 10^3/uL (4.0-10.0)
[2023-03-20 06:54] LABS: ALBUMIN 2.7 G/DL (3.2-5.2); ALKALINE PHOSPHATASE 56 U/L (46-116); ALT/SGPT 16 U/L (7.0-40); AST/SGOT 11 U/L (<34); BILIRUBIN,TOTAL 0.2 MG/DL (0.3-1.2); BLOOD UREA NITROGEN 18 MG/DL (9-23); CALCIUM LEVEL 8.8 MG/DL (8.3-10.6); CARBON DIOXIDE LEVEL > 40.0 MMOL/L (20-31); CHLORIDE LEVEL 90 MMOL/L (98-107); CREATININE FOR GFR 0.41 MG/DL (0.55-1.30); GLOMERULAR FILTRATION RATE > 60.0 (>45); GLUCOSE, FASTING 89 MG/DL (74-106); POTASSIUM SERUM 5.2 MMOL/L (3.5-5.1); SODIUM LEVEL 134 MMOL/L (136-145); TOTAL PROTEIN 5.5 G/DL (5.7-8.2)
[2023-03-20] MEDS: INSULIN LISPRO (NovoLOG) PER UNIT SC SCH ×4 (07:21→21:00)
[2023-03-20] MEDS: NS 1,000 ML IV SCH ×2 (08:00→17:20)
[2023-03-20] MEDS: guaiFENesin ER TABLET 600 MG TAB PO SCH ×2 (08:02→21:55)
[2023-03-20] MEDS: DOCUSATE SODIUM 100MG CAPSULE PO SCH ×2 (08:02→21:55)
[2023-03-20] MEDS: ASPIRIN 81MG ENTERIC TABLET PO SCH (08:02)
[2023-03-20] MEDS: PANTOPRAZOLE 40MG TAB (PROTONIX) PO SCH (08:02)
[2023-03-20] MEDS: FERROUS SULFATE 325MG TAB PO SCH ×2 (08:02→21:55)
[2023-03-20] MEDS: ADVAIR HFA 115/21MCG INHALER INH SCH ×2 (08:14→19:33)
[2023-03-20] MEDS: LEVEMIR (INSULIN DETEMIR) 1 UNITS/0.01ML SC SCH (08:30)
[2023-03-20 14:00] VITALS: BP 132/90; TEMP 97.7; O2SAT 98
[2023-03-20 19:36] VITALS: O2SAT 96
[2023-03-20 20:17] VITALS: BP 131/90; TEMP 98.1; O2SAT 94
[2023-03-20] MEDS: SERTRALINE 100 MG TAB PO SCH (21:55)
[2023-03-20] MEDS: ENOXAPARIN 40MG/0.4ML SYRINGE (J1650 PER 10MG) SC SCH (21:55)
[2023-03-20] MEDS: ACETAMINOPHEN TAB 650MG DOSE (2X325MG) PO PRN (22:02)
[2023-03-21] MEDS: IPRATROPIUM 0.5MG/ALBUTEROL 2.5MG INH SOL UD 3ML (DUONEB) NEB SCH ×4 (01:18→19:59)
[2023-03-21] MEDS: NS 1,000 ML IV SCH (02:31)
[2023-03-21 05:40] VITALS: BP 135/77; TEMP 97.9; O2SAT 95
[2023-03-21 05:43] LABS: HEMATOCRIT 24.5 % (36.0-47.0); HEMOGLOBIN 7.3 g/dl (12.0-15.5); MEAN CORPUSCULAR HEMOGLOBIN 30.5 pg (27.0-33.0); MEAN CORPUSCULAR HGB CONC 29.8 g/dl (32.0-36.5); MEAN CORPUSCULAR VOLUME 102.5 fl (80.0-96.0); PLATELET COUNT, AUTOMATED 277 10^3/uL (150-450); RED BLOOD COUNT 2.39 10^6/uL (4.00-5.40); WHITE BLOOD COUNT 5.9 10^3/uL (4.0-10.0)
[2023-03-21 06:13] LABS: ALBUMIN 2.4 G/DL (3.2-5.2); ALKALINE PHOSPHATASE 46 U/L (46-116); ALT/SGPT 10 U/L (7.0-40); AST/SGOT 10 U/L (<34); BILIRUBIN,TOTAL 0.2 MG/DL (0.3-1.2); BLOOD UREA NITROGEN 14 MG/DL (9-23); CALCIUM LEVEL 7.9 MG/DL (8.3-10.6); CARBON DIOXIDE LEVEL 38 MMOL/L (20-31); CHLORIDE LEVEL 96 MMOL/L (98-107); CREATININE FOR GFR 0.42 MG/DL (0.55-1.30); GLOMERULAR FILTRATION RATE > 60.0 (>45); GLUCOSE, FASTING 85 MG/DL (74-106); POTASSIUM SERUM 4.6 MMOL/L (3.5-5.1); SODIUM LEVEL 135 MMOL/L (136-145); TOTAL PROTEIN 4.8 G/DL (5.7-8.2)
[2023-03-21] MEDS: INSULIN LISPRO (NovoLOG) PER UNIT SC SCH ×3 (07:25→17:05)
[2023-03-21] MEDS: ADVAIR HFA 115/21MCG INHALER INH SCH ×2 (08:09→19:59)
[2023-03-21] MEDS: PANTOPRAZOLE 40MG TAB (PROTONIX) PO SCH (09:04)
[2023-03-21] MEDS: guaiFENesin ER TABLET 600 MG TAB PO SCH ×2 (09:04→21:48)
[2023-03-21] MEDS: ASPIRIN 81MG ENTERIC TABLET PO SCH (09:04)
[2023-03-21] MEDS: predniSONE 20 MG TAB PO SCH (09:04)
[2023-03-21] MEDS: DOCUSATE SODIUM 100MG CAPSULE PO SCH ×2 (09:04→21:48)
[2023-03-21] MEDS: FERROUS SULFATE 325MG TAB PO SCH ×2 (09:04→21:48)
[2023-03-21] MEDS: LEVEMIR (INSULIN DETEMIR) 1 UNITS/0.01ML SC SCH (09:10)
[2023-03-21 15:15] VITALS: BP 159/87; TEMP 97.7; O2SAT 93
[2023-03-21 20:20] VITALS: BP 113/64; TEMP 98.1; O2SAT 95
[2023-03-21] MEDS: SERTRALINE 100 MG TAB PO SCH (21:47)
[2023-03-21] MEDS: ENOXAPARIN 40MG/0.4ML SYRINGE (J1650 PER 10MG) SC SCH (21:48)
[2023-03-21] MEDS: ACETAMINOPHEN TAB 650MG DOSE (2X325MG) PO PRN (21:52)
[2023-03-22] MEDS: IPRATROPIUM 0.5MG/ALBUTEROL 2.5MG INH SOL UD 3ML (DUONEB) NEB SCH ×3 (01:26→13:49)
[2023-03-22 05:32] VITALS: BP 151/83; TEMP 96.3; O2SAT 95
[2023-03-22 06:17] LABS: HEMOGLOBIN 7.6 g/dl (12.0-15.5); MEAN CORPUSCULAR HEMOGLOBIN 30.5 pg (27.0-33.0); MEAN CORPUSCULAR HGB CONC 30.4 g/dl (32.0-36.5); MEAN CORPUSCULAR VOLUME 100.4 fl (80.0-96.0); PLATELET COUNT, AUTOMATED 292 10^3/uL (150-450); RED BLOOD COUNT 2.49 10^6/uL (4.00-5.40); WHITE BLOOD COUNT 5.7 10^3/uL (4.0-10.0)
[2023-03-22 07:13] LABS: ALBUMIN 2.7 G/DL (3.2-5.2); ALKALINE PHOSPHATASE 47 U/L (46-116); ALT/SGPT 11 U/L (7.0-40); AST/SGOT 12 U/L (<34); BILIRUBIN,TOTAL 0.3 MG/DL (0.3-1.2); BLOOD UREA NITROGEN 11 MG/DL (9-23); CALCIUM LEVEL 8.6 MG/DL (8.3-10.6); CARBON DIOXIDE LEVEL > 40.0 MMOL/L (20-31); CHLORIDE LEVEL 93 MMOL/L (98-107); CREATININE FOR GFR 0.44 MG/DL (0.55-1.30); GLOMERULAR FILTRATION RATE > 60.0 (>45); GLUCOSE, FASTING 75 MG/DL (74-106); POTASSIUM SERUM 4.4 MMOL/L (3.5-5.1); SODIUM LEVEL 135 MMOL/L (136-145); TOTAL PROTEIN 5.4 G/DL (5.7-8.2)
[2023-03-22] MEDS: INSULIN LISPRO (NovoLOG) PER UNIT SC SCH ×2 (07:30→12:36)
[2023-03-22] MEDS: ADVAIR HFA 115/21MCG INHALER INH SCH (08:32)
[2023-03-22] MEDS: FERROUS SULFATE 325MG TAB PO SCH (09:27)
[2023-03-22] MEDS: ASPIRIN 81MG ENTERIC TABLET PO SCH (09:27)
[2023-03-22] MEDS: predniSONE 20 MG TAB PO SCH (09:27)
[2023-03-22] MEDS: PANTOPRAZOLE 40MG TAB (PROTONIX) PO SCH (09:27)
[2023-03-22] MEDS: guaiFENesin ER TABLET 600 MG TAB PO SCH (09:28)
[2023-03-22] MEDS: DOCUSATE SODIUM 100MG CAPSULE PO SCH (09:28)
[2023-03-22] MEDS ORDERED: COLA100C5 PO (10:57)
[2023-03-22] MEDS ORDERED: FERR1TAB8 PO (10:57)
[2023-03-22] MEDS ORDERED: PRED20TA PO (10:57)
== END 2023-03-22 17:45 | disposition home health service (06) | DRG 140 ==
LOC: EDBD 16:29 → M ED 16:29 → M ED INP 03-16 00:32 → M MS5PR 03-16 01:16
PROVIDERS: ADMIT Internal Medicine; ATTEND Internal Medicine
DX: J44.0 Chronic obstructive pulmonary disease with (acute) lower respiratory infection (principal); J96.21 Acute and chronic respiratory failure with hypoxia; I27.81 Cor pulmonale (chronic); J96.12 Chronic respiratory failure with hypercapnia; D50.9 Iron deficiency anemia, unspecified; F17.210 Nicotine dependence, cigarettes, uncomplicated; Z99.81 Dependence on supplemental oxygen; B34.8 Other viral infections of unspecified site; K21.9 Gastro-esophageal reflux disease without esophagitis; Z86.718 Personal history of other venous thrombosis and embolism; Z79.82 Long term (current) use of aspirin; Z79.899 Other long term (current) drug therapy; Z88.1 Allergy status to other antibiotic agents; Z88.8 Allergy status to other drugs, medicaments and biological substances; Z20.822 Contact with and (suspected) exposure to COVID-19; F32.A Depression, unspecified; R73.9 Hyperglycemia, unspecified; T38.0X5A Adverse effect of glucocorticoids and synthetic analogues, initial encounter; J44.1 Chronic obstructive pulmonary disease with (acute) exacerbation

== ENCOUNTER 2023-05-26 09:21 | Emergency (ER) | payer MEDICAID, OTHER ==
[~2023-05-26] VITALS: Ht 152.4 cm; Wt 50.5 kg
[~2023-05-26 09:21] MED LIST changes: +ASPI-161 PO; +ASPI-226; +COLA100C5 PO; +FERR1TAB8 PO; +ZOLO100T; +ZOLO100T PO
[2023-05-26 19:30] VITALS: BP 139/80; TEMP 98.3; O2SAT 99
== END 2023-05-26 19:53 | disposition home or self-care (01) ==
LOC: EDBD 09:21 → M ED 09:21
DX: J44.9 Chronic obstructive pulmonary disease, unspecified (principal); K21.9 Gastro-esophageal reflux disease without esophagitis; F17.200 Nicotine dependence, unspecified, uncomplicated; F10.10 Alcohol abuse, uncomplicated; Z86.718 Personal history of other venous thrombosis and embolism; Z88.1 Allergy status to other antibiotic agents; Z88.8 Allergy status to other drugs, medicaments and biological substances; Z79.52 Long term (current) use of systemic steroids; Z79.82 Long term (current) use of aspirin; Z79.899 Other long term (current) drug therapy

== ENCOUNTER 2023-11-03 09:23 | Inpatient (IN) | payer OTHER ==
[~2023-11-03] VITALS: Ht 152.4 cm; Wt 42.4 kg
[~2023-11-03 09:23] MED LIST changes: -ASPI-161 PO; +ASPI-615 PO; -ROSU10TA6 PO; +ROSU10TA61 PO
[2023-11-03 10:09] LABS: VENOUS BASE EXCESS 9.4 (-2.0-2.0); VENOUS HCO3 38.7 MMOL/L (23.0-27.0); VENOUS O2 SATURATION 59.4 % (60.0-80.0); VENOUS PARTIAL PRESSURE CO2 88.2 mmHg (38.0-50.0); VENOUS PARTIAL PRESSURE O2 34.4 mmHg (30.0-50.0); VENOUS STANDARD HCO3 32.5 MMOL/L; VENOUS TOTAL CO2 41.4 MMOL/L (24.0-28.0)
[2023-11-03] MEDS: IPRATROPIUM 0.5MG/ALBUTEROL 2.5MG INH SOL UD 3ML (DUONEB) NEB PRN (10:18)
[2023-11-03 10:43] LABS: BASO % 0.6 % (0.0-1.0); EOS # 0.1 10^3/uL (0.0-0.5); EOS % 1.1 % (0.0-3.0); HEMATOCRIT 30.1 % (36.0-47.0); HEMOGLOBIN 8.6 g/dl (12.0-15.5); LYMPH # 0.8 10^3/uL (1.5-5.0); LYMPH % 14.9 % (24.0-44.0); MEAN CORPUSCULAR HEMOGLOBIN 26.4 pg (27.0-33.0); MEAN CORPUSCULAR HGB CONC 28.6 g/dl (32.0-36.5); MEAN CORPUSCULAR VOLUME 92.3 fl (80.0-96.0); MONO # 0.3 10^3/uL (0.0-0.8); MONO % 5.4 % (2.0-8.0); NEUTROPHILS # 4.1 10^3/uL (1.5-8.5); PLATELET COUNT, AUTOMATED 217 10^3/uL (150-450); RED BLOOD COUNT 3.26 10^6/uL (4.00-5.40); WHITE BLOOD COUNT 5.2 10^3/uL (4.0-10.0)
[2023-11-03 10:46] LABS: THYROID STIMULATING HORMONE 2.243 uIU/ML (0.55-4.78)
[2023-11-03 10:48] LABS: ALBUMIN 3.5 G/DL (3.2-5.2); ALKALINE PHOSPHATASE 113 U/L (46-116); ALT/SGPT < 9 U/L (7.0-40); AST/SGOT 12 U/L (<34); BILIRUBIN,DIRECT 0.1 MG/DL (<0.4); BILIRUBIN,TOTAL 0.5 MG/DL (0.3-1.2); BLOOD UREA NITROGEN 11 MG/DL (9-23); CALCIUM LEVEL 9.4 MG/DL (8.3-10.6); CARBON DIOXIDE LEVEL > 40.0 MMOL/L (20-31); CHLORIDE LEVEL 97 MMOL/L (98-107); CREATININE FOR GFR 0.43 MG/DL (0.55-1.30); GLOMERULAR FILTRATION RATE > 60.0 (>45); GLUCOSE, FASTING 73 MG/DL (74-106); POTASSIUM SERUM 4.1 MMOL/L (3.5-5.1); SODIUM LEVEL 141 MMOL/L (136-145); TOTAL PROTEIN 7.4 G/DL (5.7-8.2)
[2023-11-03] MEDS ORDERED: ISOVUE-370 76% 100ML VIAL As Ordered ONE (12:13)
[2023-11-03 14:20] VITALS: O2SAT 84
[2023-11-03 14:50] LABS: ABG BASE EXCESS 10.1 (-2.0-2.0); ABG HCO3 37.2 MMOL/L (22.0-26.0); ABG O2 SATURATION 97.2 % (95.0-99.0); ABG PARTIAL PRESSURE O2 102.9 mmHg (75.0-100.0); ABG STANDARD HCO3 33.8 MMOL/L. (22.0-26.0); ABG TOTAL CO2 39.3 MMOL/L (23.0-31.0); ABG pH (ARTERIAL) 7.351 UNITS (7.350-7.450)
[2023-11-03 15:00] LABS: ABG PARTIAL PRESSURE CO2 68.7 mmHg (35.0-45.0)
[2023-11-03] MEDS: IPRATROPIUM 0.5MG/ALBUTEROL 2.5MG INH SOL UD 3ML (DUONEB) NEB SCH (16:00)
[2023-11-03 16:33] VITALS: BP 149/82; TEMP 97.9; O2SAT 98
[2023-11-03 16:34] LABS: IRON (FE) 37 UG/DL (50-170); PERCENT SATURATION 7.4 % (13.2-45.0); TOTAL IRON BINDING CAPACITY 498 UG/DL (250-425)
[2023-11-03 16:36] LABS: FERRITIN 6.6 NG/ML (7.3-270.7); FOLATE 9.35 NG/ML (>5.4)
[2023-11-03 16:37] LABS: VITAMIN B12 LEVEL 520 PG/ML (211-911)
[2023-11-03] MEDS: methylPREDNISolone 40MG 1ML VIAL IV SCH (16:42)
[2023-11-03] MEDS ORDERED: HOME MED LIST COMPLETE! XX SCH (17:40)
[2023-11-03] MEDS: FORMOTEROL FUMARATE 20 MCG/2 ML INHALATION SOLUTION (PERFOROMIST) INH SCH (19:24)
[2023-11-03] MEDS: BUDESONIDE 0.5 MG/2 ML INHALATION SUSPENSION NEB SCH (19:24)
[2023-11-03 20:58] VITALS: BP 105/66; TEMP 97.2; O2SAT 93
[2023-11-03] MEDS: AZITHROMYCIN 250MG TABLET PO SCH (21:15)
[2023-11-03] MEDS: PANTOPRAZOLE 40MG TAB (PROTONIX) PO SCH (21:15)
[2023-11-03] MEDS: ACETAMINOPHEN TAB 650MG DOSE (2X325MG) PO PRN (21:16)
[2023-11-03] MEDS: guaiFENesin ER TABLET 600 MG TAB PO SCH (21:17)
[2023-11-03] MEDS ORDERED: LEVALBUTEROL 1.25MG 0.5ML CONCENTRATE NEB INH PRN (21:40)
[2023-11-04] VITALS (8 sets, daily range): BP systolic 115–149; BP diastolic 62–84; TEMP 97.3–98.6; O2SAT 89–96
[2023-11-04 05:49] LABS: BASO % 0.3 % (0.0-1.0); HEMATOCRIT 24.4 % (36.0-47.0); HEMOGLOBIN 7.2 g/dl (12.0-15.5); LYMPH # 0.2 10^3/uL (1.5-5.0); LYMPH % 6.1 % (24.0-44.0); MEAN CORPUSCULAR HGB CONC 29.5 g/dl (32.0-36.5); MEAN CORPUSCULAR VOLUME 88.1 fl (80.0-96.0); MONO % 0.5 % (2.0-8.0); NEUTROPHILS # 3.6 10^3/uL (1.5-8.5); NEUTROPHILS % 92.6 % (36.0-66.0); PLATELET COUNT, AUTOMATED 212 10^3/uL (150-450); RED BLOOD COUNT 2.77 10^6/uL (4.00-5.40); WHITE BLOOD COUNT 3.9 10^3/uL (4.0-10.0)
[2023-11-04 06:29] LABS: BLOOD UREA NITROGEN 16 MG/DL (9-23); CARBON DIOXIDE LEVEL 38 MMOL/L (20-31); CHLORIDE LEVEL 96 MMOL/L (98-107); CREATININE FOR GFR 0.46 MG/DL (0.55-1.30); GLOMERULAR FILTRATION RATE > 60.0 (>45); GLUCOSE, FASTING 137 MG/DL (74-106); POTASSIUM SERUM 4.1 MMOL/L (3.5-5.1); SODIUM LEVEL 136 MMOL/L (136-145)
[2023-11-04] MEDS ORDERED: FERRIC CARBOXYMALTOSE INJ 750 MG, VIAL MATE ADAPTER 1 EACH in NS 250 ML IV ONE (08:00)
[2023-11-04] MEDS: ENOXAPARIN 30MG/0.3ML SYRINGE (J1650 PER 10MG) SC SCH (08:15)
[2023-11-04] MEDS: IRON SUCROSE 500 MG in NS 250 ML IV ONE (10:41)
[2023-11-05 04:00] VITALS: BP 147/82; TEMP 97.5; O2SAT 92
[2023-11-05 06:23] LABS: HEMOGLOBIN 8.5 g/dl (12.0-15.5); LYMPH # 0.3 10^3/uL (1.5-5.0); MEAN CORPUSCULAR HEMOGLOBIN 27.2 pg (27.0-33.0); MEAN CORPUSCULAR HGB CONC 30.4 g/dl (32.0-36.5); MEAN CORPUSCULAR VOLUME 89.7 fl (80.0-96.0); MONO # 0.2 10^3/uL (0.0-0.8); MONO % 2.2 % (2.0-8.0); NEUTROPHILS % 93.1 % (36.0-66.0); PLATELET COUNT, AUTOMATED 225 10^3/uL (150-450); RED BLOOD COUNT 3.12 10^6/uL (4.00-5.40); WHITE BLOOD COUNT 7.6 10^3/uL (4.0-10.0)
[2023-11-05 06:40] LABS: BLOOD UREA NITROGEN 11 MG/DL (9-23); CALCIUM LEVEL 9.1 MG/DL (8.3-10.6); CARBON DIOXIDE LEVEL 39 MMOL/L (20-31); CHLORIDE LEVEL 97 MMOL/L (98-107); CREATININE FOR GFR 0.42 MG/DL (0.55-1.30); GLOMERULAR FILTRATION RATE > 60.0 (>45); GLUCOSE, FASTING 145 MG/DL (74-106); POTASSIUM SERUM 4.6 MMOL/L (3.5-5.1); SODIUM LEVEL 138 MMOL/L (136-145)
[2023-11-05] MEDS ORDERED: VANCOMYCIN HCL 1,000 MG, VIAL MATE ADAPTER 1 EACH in D5W 250 ML IV SCH (08:55)
[2023-11-05 09:25] LABS: PROCALCITONIN <0.04 ng/ml
[2023-11-05] MEDS: VANCOMYCIN HCL 1,000 MG, VIAL MATE ADAPTER 1 EACH in D5W 250 ML IV ONE (10:19)
[2023-11-05 12:00] VITALS: BP 151/92; TEMP 97.5; O2SAT 93
[2023-11-05] MEDS ORDERED: VANCOMYCIN HCL 750 MG, VIAL MATE ADAPTER 1 EACH in D5W 250 ML IV SCH (16:00)
[2023-11-05] MEDS: VANCOMYCIN HCL 750 MG, VIAL MATE ADAPTER 1 EACH in D5W 250 ML IV SCH (16:02)
[2023-11-05 19:49] VITALS: BP 152/84; TEMP 97.7; O2SAT 92
[2023-11-05] MEDS: methylPREDNISolone 40MG 1ML VIAL IV SCH (20:19)
[2023-11-05] MEDS: SENOKOT S TAB PO SCH (20:26)
[2023-11-06 04:38] VITALS: BP 133/66; TEMP 97.3; O2SAT 95
[2023-11-06 07:17] LABS: BASO % 0.1 % (0.0-1.0); HEMATOCRIT 31.3 % (36.0-47.0); HEMOGLOBIN 9.5 g/dl (12.0-15.5); LYMPH # 0.8 10^3/uL (1.5-5.0); LYMPH % 7.8 % (24.0-44.0); MEAN CORPUSCULAR HEMOGLOBIN 27.3 pg (27.0-33.0); MEAN CORPUSCULAR HGB CONC 30.4 g/dl (32.0-36.5); MEAN CORPUSCULAR VOLUME 89.9 fl (80.0-96.0); MONO # 0.5 10^3/uL (0.0-0.8); MONO % 4.3 % (2.0-8.0); NEUTROPHILS # 9.4 10^3/uL (1.5-8.5); NEUTROPHILS % 87.5 % (36.0-66.0); PLATELET COUNT, AUTOMATED 265 10^3/uL (150-450); RED BLOOD COUNT 3.48 10^6/uL (4.00-5.40); WHITE BLOOD COUNT 10.7 10^3/uL (4.0-10.0)
[2023-11-06 07:22] LABS: ERYTHROCYTE SEDIMENTATION RATE 74 mm/hr (0-30)
[2023-11-06 07:40] LABS: VANCOMYCIN LEVEL TROUGH 14.5 UG/ML (10.0-20.0)
[2023-11-06 07:46] LABS: BLOOD UREA NITROGEN 12 MG/DL (9-23); CALCIUM LEVEL 9.9 MG/DL (8.3-10.6); CARBON DIOXIDE LEVEL > 40.0 MMOL/L (20-31); CHLORIDE LEVEL 93 MMOL/L (98-107); CREATININE FOR GFR 0.43 MG/DL (0.55-1.30); GLOMERULAR FILTRATION RATE > 60.0 (>45); GLUCOSE, FASTING 92 MG/DL (74-106); POTASSIUM SERUM 4.7 MMOL/L (3.5-5.1); SODIUM LEVEL 135 MMOL/L (136-145)
[2023-11-06 12:00] VITALS: BP 135/80; TEMP 97.7; O2SAT 96
[2023-11-06 20:26] VITALS: BP 135/79; TEMP 97.3; O2SAT 96
[2023-11-07 04:32] VITALS: BP 129/81; TEMP 97.2; O2SAT 95
[2023-11-07 07:12] LABS: HEMATOCRIT 31.5 % (36.0-47.0); HEMOGLOBIN 9.7 g/dl (12.0-15.5); LYMPH # 0.7 10^3/uL (1.5-5.0); LYMPH % 8.7 % (24.0-44.0); MEAN CORPUSCULAR HEMOGLOBIN 27.5 pg (27.0-33.0); MEAN CORPUSCULAR HGB CONC 30.8 g/dl (32.0-36.5); MEAN CORPUSCULAR VOLUME 89.2 fl (80.0-96.0); MONO # 0.3 10^3/uL (0.0-0.8); MONO % 4.4 % (2.0-8.0); NEUTROPHILS # 6.5 10^3/uL (1.5-8.5); NEUTROPHILS % 86.6 % (36.0-66.0); PLATELET COUNT, AUTOMATED 256 10^3/uL (150-450); RED BLOOD COUNT 3.53 10^6/uL (4.00-5.40); WHITE BLOOD COUNT 7.5 10^3/uL (4.0-10.0)
[2023-11-07 07:34] LABS: BLOOD UREA NITROGEN 15 MG/DL (9-23); CALCIUM LEVEL 9.3 MG/DL (8.3-10.6); CARBON DIOXIDE LEVEL > 40.0 MMOL/L (20-31); CHLORIDE LEVEL 92 MMOL/L (98-107); CREATININE FOR GFR 0.46 MG/DL (0.55-1.30); GLOMERULAR FILTRATION RATE > 60.0 (>45); GLUCOSE, FASTING 91 MG/DL (74-106); POTASSIUM SERUM 4.7 MMOL/L (3.5-5.1); SODIUM LEVEL 133 MMOL/L (136-145)
[2023-11-07] MEDS: predniSONE 20 MG TAB PO SCH (08:40)
[2023-11-07] MEDS: VANCOMYCIN HCL 750 MG, VIAL MATE ADAPTER 1 EACH in D5W 250 ML IV SCH (08:40)
[2023-11-07] MEDS ORDERED: AZIT-12 PO (09:37)
[2023-11-07 12:00] VITALS: BP 127/80; TEMP 97.7; O2SAT 97
[2023-11-07 20:24] VITALS: BP 127/83; TEMP 97.7; O2SAT 94
[2023-11-08 04:37] VITALS: BP 126/65; TEMP 97.5; O2SAT 98
[2023-11-08 08:22] LABS: EOS % 0.6 % (0.0-3.0); HEMATOCRIT 33.6 % (36.0-47.0); HEMOGLOBIN 10.3 g/dl (12.0-15.5); LYMPH # 1.5 10^3/uL (1.5-5.0); LYMPH % 22.4 % (24.0-44.0); MEAN CORPUSCULAR HEMOGLOBIN 27.8 pg (27.0-33.0); MEAN CORPUSCULAR HGB CONC 30.7 g/dl (32.0-36.5); MEAN CORPUSCULAR VOLUME 90.6 fl (80.0-96.0); MONO # 0.4 10^3/uL (0.0-0.8); MONO % 6.6 % (2.0-8.0); NEUTROPHILS # 4.7 10^3/uL (1.5-8.5); PLATELET COUNT, AUTOMATED 256 10^3/uL (150-450); RED BLOOD COUNT 3.71 10^6/uL (4.00-5.40); WHITE BLOOD COUNT 6.7 10^3/uL (4.0-10.0)
[2023-11-08 08:52] LABS: VANCOMYCIN LEVEL TROUGH 13.1 UG/ML (10.0-20.0)
[2023-11-08 08:54] LABS: BLOOD UREA NITROGEN 19 MG/DL (9-23); CALCIUM LEVEL 8.9 MG/DL (8.3-10.6); CARBON DIOXIDE LEVEL 35 MMOL/L (20-31); CHLORIDE LEVEL 92 MMOL/L (98-107); CREATININE FOR GFR 0.49 MG/DL (0.55-1.30); GLOMERULAR FILTRATION RATE > 60.0 (>45); GLUCOSE, FASTING 92 MG/DL (74-106); POTASSIUM SERUM 3.8 MMOL/L (3.5-5.1); SODIUM LEVEL 132 MMOL/L (136-145)
[2023-11-08 12:00] VITALS: BP 130/67; TEMP 97; O2SAT 94
== END 2023-11-08 14:12 | disposition home or self-care (01) | DRG 140 ==
LOC: EDBD 09:23 → M ED 09:23 → M ED INP 15:26 → EEVIPCON 15:26 → M MSPAV 16:32
PROVIDERS: ADMIT Internal Medicine Nephrology; ATTEND Internal Medicine Nephrology
PROC: 30233N1 Transfusion of Nonautologous Red Blood Cells into Peripheral Vein, Percutaneous Approach (ICD-10-PCS; principal; 2023-11-04)
DX: J44.1 Chronic obstructive pulmonary disease with (acute) exacerbation (principal); J96.11 Chronic respiratory failure with hypoxia; I27.20 Pulmonary hypertension, unspecified; J96.12 Chronic respiratory failure with hypercapnia; K31.811 Angiodysplasia of stomach and duodenum with bleeding; Z99.81 Dependence on supplemental oxygen; D62 Acute posthemorrhagic anemia; E87.1 Hypo-osmolality and hyponatremia; F10.10 Alcohol abuse, uncomplicated; F17.200 Nicotine dependence, unspecified, uncomplicated; K21.9 Gastro-esophageal reflux disease without esophagitis; F32.A Depression, unspecified; I73.9 Peripheral vascular disease, unspecified; Z79.52 Long term (current) use of systemic steroids; B95.62 Methicillin resistant Staphylococcus aureus infection as the cause of diseases classified elsewhere; Z88.8 Allergy status to other drugs, medicaments and biological substances; Z79.899 Other long term (current) drug therapy; Z79.82 Long term (current) use of aspirin; Z86.718 Personal history of other venous thrombosis and embolism; G25.81 Restless legs syndrome; K64.8 Other hemorrhoids; I34.0 Nonrheumatic mitral (valve) insufficiency

== ENCOUNTER 2023-11-08 14:21 | Outpatient (CLI) | payer OTHER ==
[~2023-11-08] VITALS: Ht 160 cm; Wt 42.4 kg
[~2023-11-08 14:21] MED LIST changes: +AZIT-12 PO
[2023-11-08 15:16] VITALS: BP 131/78; O2SAT 95
[2023-11-08] MEDS: DALBAVANCIN 1,500 MG in D5W 250 ML IV ONE (15:18)
[2023-11-08 16:25] VITALS: BP 134/78; O2SAT 95
== END 2023-11-08 16:39 | disposition home or self-care (01) ==
LOC: M OPCLI4PV 14:21 → M MSPAV 14:22 → M OPCLI4PV 16:39
PROVIDERS: ATTEND Internal Medicine Nephrology
DX: B95.62 Methicillin resistant Staphylococcus aureus infection as the cause of diseases classified elsewhere (principal); Z88.1 Allergy status to other antibiotic agents
CPT/HCPCS: 96365; J0875

== ENCOUNTER 2024-02-06 12:52 | Inpatient (IN) | payer MEDICAID, OTHER ==
[2024-02-06] VITALS (7 sets, daily range): BP systolic 103–130; BP diastolic 56–86; TEMP 97.7–98.2; O2SAT 93–99
[~2024-02-06] VITALS: Ht 152.4 cm; Wt 46.0 kg
[2024-02-06] MEDS: IPRATROPIUM 0.5MG/ALBUTEROL 2.5MG INH SOL UD 3ML (DUONEB) NEB PRN (13:11)
[2024-02-06 13:23] LABS: BASO % 0.7 % (0.0-1.0); EOS # 0.1 10^3/uL (0.0-0.5); EOS % 2.4 % (0.0-3.0); HEMATOCRIT 40.6 % (36.0-47.0); HEMOGLOBIN 12.1 g/dl (12.0-15.5); LYMPH % 17.4 % (24.0-44.0); MEAN CORPUSCULAR HEMOGLOBIN 31.7 pg (27.0-33.0); MEAN CORPUSCULAR HGB CONC 29.8 g/dl (32.0-36.5); MEAN CORPUSCULAR VOLUME 106.3 fl (80.0-96.0); MONO # 0.4 10^3/uL (0.0-0.8); MONO % 7.5 % (2.0-8.0); NEUTROPHILS # 4.1 10^3/uL (1.5-8.5); NEUTROPHILS % 71.8 % (36.0-66.0); PLATELET COUNT, AUTOMATED 223 10^3/uL (150-450); RED BLOOD COUNT 3.82 10^6/uL (4.00-5.40); WHITE BLOOD COUNT 5.7 10^3/uL (4.0-10.0)
[2024-02-06 13:37] LABS: INR 0.96; PROTHROMBIN TIME 12.5 SECONDS (12.5-14.5)
[2024-02-06 13:39] LABS: ABG BASE EXCESS 4.7 (-2.0-2.0); ABG HCO3 34.8 MMOL/L (22.0-26.0); ABG O2 SATURATION 98.4 % (95.0-99.0); ABG PARTIAL PRESSURE O2 202.2 mmHg (75.0-100.0); ABG STANDARD HCO3 28.7 MMOL/L. (22.0-26.0); ABG TOTAL CO2 37.4 MMOL/L (23.0-31.0)
[2024-02-06 13:42] LABS: ABG PARTIAL PRESSURE CO2 85.9 mmHg (35.0-45.0); ABG pH (ARTERIAL) 7.225 UNITS (7.350-7.450)
[2024-02-06 13:54] LABS: CPK CREATINE PHOSPHOKINASE 20 U/L (34-145)
[2024-02-06 14:03] LABS: ALKALINE PHOSPHATASE 122 U/L (46-116); ALT/SGPT 14 U/L (7.0-40); AST/SGOT 16 U/L (<34); BILIRUBIN,DIRECT 0.1 MG/DL (<0.4); BILIRUBIN,TOTAL 0.4 MG/DL (0.3-1.2); BLOOD UREA NITROGEN 16 MG/DL (9-23); CALCIUM LEVEL 9.2 MG/DL (8.3-10.6); CARBON DIOXIDE LEVEL > 40.0 MMOL/L (20-31); CHLORIDE LEVEL 98 MMOL/L (98-107); CK-MB VALUE MASS < 1.0 NG/ML (<3.6); CREATININE FOR GFR 0.47 MG/DL (0.55-1.30); GLOMERULAR FILTRATION RATE > 60.0 (>45); GLUCOSE, FASTING 91 MG/DL (74-106); POTASSIUM SERUM 4.6 MMOL/L (3.5-5.1); SODIUM LEVEL 139 MMOL/L (136-145); THYROID STIMULATING HORMONE 1.379 uIU/ML (0.55-4.78); TOTAL PROTEIN 7.8 G/DL (5.7-8.2)
[2024-02-06] MEDS ORDERED: THIAMINE 200MG 2ML VIAL IV ONE (14:30)
[2024-02-06] MEDS: LevoFLOXacin IV 750 MG in IV 1 EA IV ONE (15:06)
[2024-02-06 15:38] LABS: MAGNESIUM LEVEL 1.8 MG/DL (1.8-2.4); PHOSPHORUS LEVEL 4.3 MG/DL (2.4-5.1)
[2024-02-06 16:01] LABS: VENOUS BASE EXCESS 4.2 (-2.0-2.0); VENOUS HCO3 32.2 MMOL/L (23.0-27.0); VENOUS O2 SATURATION 76.5 % (60.0-80.0); VENOUS PARTIAL PRESSURE CO2 65.9 mmHg (38.0-50.0); VENOUS PARTIAL PRESSURE O2 38.6 mmHg (30.0-50.0); VENOUS PH 7.307 UNITS (7.330-7.430); VENOUS STANDARD HCO3 27.7 MMOL/L; VENOUS TOTAL CO2 34.2 MMOL/L (24.0-28.0)
[2024-02-06] MEDS ORDERED: FLUT1BLS8 INH (16:09)
[2024-02-06] MEDS ORDERED: MULTTAB14 PO (16:10)
[2024-02-06] MEDS ORDERED: HOME MED LIST COMPLETE! XX SCH (16:15)
[2024-02-06] MEDS: ACETAMINOPHEN TAB 650MG DOSE (2X325MG) PO PRN (18:42)
[2024-02-06] MEDS: methylPREDNISolone 125MG 2ML VIAL IV SCH (18:42)
[2024-02-06] MEDS: GLYCOPYRROLATE INJ 0.2 MG/ML 2 ML VIAL NEB SCH (19:03)
[2024-02-06] MEDS: FORMOTEROL FUMARATE 20 MCG/2 ML INHALATION SOLUTION (PERFOROMIST) INH SCH (19:03)
[2024-02-06] MEDS: guaiFENesin ER TABLET 600 MG TAB PO SCH (20:08)
[2024-02-06] MEDS: SERTRALINE 100 MG TAB PO SCH (20:09)
[2024-02-07] VITALS (18 sets, daily range): BP systolic 113–168; BP diastolic 70–94; TEMP 97–98; O2SAT 90–100
[2024-02-07] MEDS: ALBUTEROL SULFATE 2.5MG/0.5ML INH NEB SOLN NEB PRN (00:44)
[2024-02-07] MEDS: LevoFLOXacin 750 MG TABLET PO SCH (05:49)
[2024-02-07 06:42] LABS: ALBUMIN 3.5 G/DL (3.2-5.2); ALKALINE PHOSPHATASE 103 U/L (46-116); ALT/SGPT 14 U/L (7.0-40); AST/SGOT 10 U/L (<34); BILIRUBIN,TOTAL 0.3 MG/DL (0.3-1.2); BLOOD UREA NITROGEN 16 MG/DL (9-23); CALCIUM LEVEL 8.8 MG/DL (8.3-10.6); CARBON DIOXIDE LEVEL 36 MMOL/L (20-31); CHLORIDE LEVEL 95 MMOL/L (98-107); CREATININE FOR GFR 0.48 MG/DL (0.55-1.30); GLOMERULAR FILTRATION RATE > 60.0 (>45); GLUCOSE, FASTING 118 MG/DL (74-106); POTASSIUM SERUM 4.3 MMOL/L (3.5-5.1); SODIUM LEVEL 132 MMOL/L (136-145); TOTAL PROTEIN 6.9 G/DL (5.7-8.2)
[2024-02-07] MEDS: ENOXAPARIN 40MG/0.4ML SYRINGE (J1650 PER 10MG) SC SCH (08:25)
[2024-02-07] MEDS: PANTOPRAZOLE 40MG VIAL IV SCH (08:25)
[2024-02-07 09:00] LABS: VENOUS BASE EXCESS 7.6 (-2.0-2.0); VENOUS HCO3 33.9 MMOL/L (23.0-27.0); VENOUS O2 SATURATION 97.8 % (60.0-80.0); VENOUS PARTIAL PRESSURE CO2 57.2 mmHg (38.0-50.0); VENOUS PARTIAL PRESSURE O2 119.1 mmHg (30.0-50.0); VENOUS PH 7.391 UNITS (7.330-7.430); VENOUS STANDARD HCO3 31.4 MMOL/L; VENOUS TOTAL CO2 35.7 MMOL/L (24.0-28.0)
[2024-02-07] MEDS: rOPINIRole 0.25 MG TAB(REQUIP) PO SCH (20:17)
[2024-02-07] MEDS: BUDESONIDE 0.5 MG/2 ML INHALATION SUSPENSION NEB SCH (20:38)
[2024-02-07] MEDS ORDERED: rOPINIRole 2MG TAB PO SCH (21:00)
[2024-02-07] MEDS: CALCIUM CARBONATE 500 MG CHEW U/D PO ONE (21:03)
[2024-02-08 00:22] VITALS: BP 139/77; TEMP 97; O2SAT 96
[2024-02-08 03:15] VITALS: BP 157/74; TEMP 97.2; O2SAT 92
[2024-02-08 06:40] LABS: BLOOD UREA NITROGEN 27 MG/DL (9-23); CALCIUM LEVEL 9.5 MG/DL (8.3-10.6); CARBON DIOXIDE LEVEL 39 MMOL/L (20-31); CHLORIDE LEVEL 98 MMOL/L (98-107); CREATININE FOR GFR 0.54 MG/DL (0.55-1.30); GLOMERULAR FILTRATION RATE > 60.0 (>45); GLUCOSE, FASTING 120 MG/DL (74-106); MAGNESIUM LEVEL 1.8 MG/DL (1.8-2.4); POTASSIUM SERUM 4.8 MMOL/L (3.5-5.1); SODIUM LEVEL 138 MMOL/L (136-145)
[2024-02-08] MEDS: PANTOPRAZOLE 40MG TAB (PROTONIX) PO SCH (08:37)
[2024-02-08 08:44] VITALS: BP 169/91; TEMP 97.5; O2SAT 92
[2024-02-08] MEDS ORDERED: ALBUTEROL SULFATE 2.5MG/0.5ML INH NEB SOLN NEB PRN (09:45)
[2024-02-08 12:00] VITALS: BP 128/68; TEMP 97.4; O2SAT 93
[2024-02-08 16:00] VITALS: BP 105/65; TEMP 97.6; O2SAT 94
[2024-02-08] MEDS: IPRATROPIUM 0.5MG/ALBUTEROL 2.5MG INH SOL UD 3ML (DUONEB) NEB SCH (16:07)
[2024-02-08 20:00] VITALS: BP 164/78; TEMP 98.6; O2SAT 92
[2024-02-08] MEDS: MIRALAX *UNIT DOSE* 17GM PACKET PO SCH (20:13)
[2024-02-09] VITALS (9 sets, daily range): BP systolic 127–152; BP diastolic 72–85; TEMP 97.7–102.1; O2SAT 91–95
[2024-02-09 16:44] LABS: VENOUS HCO3 36.3 MMOL/L (23.0-27.0); VENOUS O2 SATURATION 80.7 % (60.0-80.0); VENOUS PARTIAL PRESSURE CO2 74.9 mmHg (38.0-50.0); VENOUS PARTIAL PRESSURE O2 49.4 mmHg (30.0-50.0); VENOUS PH 7.303 UNITS (7.330-7.430); VENOUS STANDARD HCO3 31.4 MMOL/L; VENOUS TOTAL CO2 38.6 MMOL/L (24.0-28.0)
[2024-02-09] MEDS ORDERED: ISOVUE-370 76% 100ML VIAL As Ordered ONE (16:44)
[2024-02-09 17:12] LABS: HEMATOCRIT 31.2 % (36.0-47.0); HEMOGLOBIN 9.3 g/dl (12.0-15.5); MEAN CORPUSCULAR HEMOGLOBIN 30.9 pg (27.0-33.0); MEAN CORPUSCULAR HGB CONC 29.8 g/dl (32.0-36.5); MEAN CORPUSCULAR VOLUME 103.7 fl (80.0-96.0); PLATELET COUNT, AUTOMATED 253 10^3/uL (150-450); RED BLOOD COUNT 3.01 10^6/uL (4.00-5.40); WHITE BLOOD COUNT 9.4 10^3/uL (4.0-10.0)
[2024-02-09 17:36] LABS: ALBUMIN 3.4 G/DL (3.2-5.2); ALKALINE PHOSPHATASE 89 U/L (46-116); ALT/SGPT 14 U/L (7.0-40); AST/SGOT 10 U/L (<34); BILIRUBIN,TOTAL 0.2 MG/DL (0.3-1.2); BLOOD UREA NITROGEN 28 MG/DL (9-23); CALCIUM LEVEL 9.5 MG/DL (8.3-10.6); CARBON DIOXIDE LEVEL > 40.0 MMOL/L (20-31); CHLORIDE LEVEL 94 MMOL/L (98-107); CREATININE FOR GFR 0.59 MG/DL (0.55-1.30); GLOMERULAR FILTRATION RATE > 60.0 (>45); GLUCOSE, FASTING 119 MG/DL (74-106); POTASSIUM SERUM 4.3 MMOL/L (3.5-5.1); SODIUM LEVEL 134 MMOL/L (136-145); TOTAL PROTEIN 6.6 G/DL (5.7-8.2)
[2024-02-09] MEDS: methylPREDNISolone 40MG 1ML VIAL IV SCH (18:26)
[2024-02-09] MEDS: LORazepam 0.5 MG TAB PO ONE (19:13)
[2024-02-09 20:23] LABS: VENOUS BASE EXCESS 11.3 (-2.0-2.0); VENOUS HCO3 37.7 MMOL/L (23.0-27.0); VENOUS O2 SATURATION 95.6 % (60.0-80.0); VENOUS PARTIAL PRESSURE CO2 60.5 mmHg (38.0-50.0); VENOUS PARTIAL PRESSURE O2 77.9 mmHg (30.0-50.0); VENOUS PH 7.413 UNITS (7.330-7.430); VENOUS TOTAL CO2 39.6 MMOL/L (24.0-28.0)
[2024-02-09 20:44] LABS: VENOUS BASE EXCESS 11.9 (-2.0-2.0); VENOUS HCO3 38.1 MMOL/L (23.0-27.0); VENOUS O2 SATURATION 95.3 % (60.0-80.0); VENOUS PARTIAL PRESSURE CO2 59.6 mmHg (38.0-50.0); VENOUS PARTIAL PRESSURE O2 73.2 mmHg (30.0-50.0); VENOUS PH 7.424 UNITS (7.330-7.430); VENOUS STANDARD HCO3 35.6 MMOL/L
[2024-02-09 20:52] LABS: BASO % 0.1 % (0.0-1.0); HEMATOCRIT 30.5 % (36.0-47.0); HEMOGLOBIN 9.3 g/dl (12.0-15.5); LYMPH # 0.2 10^3/uL (1.5-5.0); LYMPH % 1.4 % (24.0-44.0); MEAN CORPUSCULAR HEMOGLOBIN 31.4 pg (27.0-33.0); MEAN CORPUSCULAR HGB CONC 30.5 g/dl (32.0-36.5); MONO # 0.8 10^3/uL (0.0-0.8); MONO % 6.5 % (2.0-8.0); NEUTROPHILS # 10.9 10^3/uL (1.5-8.5); NEUTROPHILS % 91.7 % (36.0-66.0); PLATELET COUNT, AUTOMATED 244 10^3/uL (150-450); RED BLOOD COUNT 2.96 10^6/uL (4.00-5.40); WHITE BLOOD COUNT 11.9 10^3/uL (4.0-10.0)
[2024-02-09] MEDS: PANTOPRAZOLE 40MG VIAL IV SCH (20:59)
[2024-02-09] MEDS ORDERED: LEVALBUTEROL 1.25MG 0.5ML CONCENTRATE NEB INH PRN (21:10)
[2024-02-09] MEDS: LEVALBUTEROL 1.25MG 0.5ML CONCENTRATE NEB INH SCH (21:17)
[2024-02-09 21:22] LABS: PROCALCITONIN 0.84 ng/ml
[2024-02-09 21:25] LABS: D-DIMER QUANT 1.44 ug/mL (<0.5); INR 1.07; PARTIAL THROMBOPLASTIN TIME 23.3 SECONDS (24.8-34.2); PROTHROMBIN TIME 13.6 SECONDS (12.5-14.5)
[2024-02-09 21:27] LABS: ALBUMIN 3.4 G/DL (3.2-5.2); ALKALINE PHOSPHATASE 87 U/L (46-116); ALT/SGPT 13 U/L (7.0-40); AST/SGOT 10 U/L (<34); BILIRUBIN,DIRECT < 0.1 MG/DL (<0.4); BILIRUBIN,TOTAL 0.2 MG/DL (0.3-1.2); BLOOD UREA NITROGEN 29 MG/DL (9-23); CALCIUM LEVEL 9.8 MG/DL (8.3-10.6); CARBON DIOXIDE LEVEL > 40.0 MMOL/L (20-31); CHLORIDE LEVEL 94 MMOL/L (98-107); CREATININE FOR GFR 0.71 MG/DL (0.55-1.30); GLOMERULAR FILTRATION RATE > 60.0 (>45); GLUCOSE, FASTING 127 MG/DL (74-106); MAGNESIUM LEVEL 1.8 MG/DL (1.8-2.4); POTASSIUM SERUM 4.8 MMOL/L (3.5-5.1); SODIUM LEVEL 135 MMOL/L (136-145); TOTAL PROTEIN 6.6 G/DL (5.7-8.2)
[2024-02-09] MEDS: METOPROLOL TART 25 MG TABLET PO ONE (21:31)
[2024-02-09] MEDS: MORPHINE 2 MG/ML 1ML VIAL IV ONE (21:33)
[2024-02-09] MEDS: RAMELTEON 8 MG TAB (ROZEREM) PO PRN (23:06)
[2024-02-09] MEDS: NS 1,000 ML IV SCH (23:06)
[2024-02-10] MEDS: IPRATROPIUM 0.02% SOLN 0.5MG 2.5ML NEB INH SCH (01:15)
[2024-02-10 03:48] VITALS: BP 107/58; TEMP 97.9; O2SAT 95
[2024-02-10 05:34] VITALS: O2SAT 95
[2024-02-10 05:35] LABS: ABG BASE EXCESS 6.3 (-2.0-2.0); ABG HCO3 33.2 MMOL/L (22.0-26.0); ABG PARTIAL PRESSURE O2 118.9 mmHg (75.0-100.0); ABG STANDARD HCO3 30.2 MMOL/L. (22.0-26.0); ABG TOTAL CO2 35.1 MMOL/L (23.0-31.0); ABG pH (ARTERIAL) 7.341 UNITS (7.350-7.450)
[2024-02-10 05:36] LABS: ABG PARTIAL PRESSURE CO2 62.8 mmHg (35.0-45.0)
[2024-02-10 05:59] LABS: HEMATOCRIT 27.4 % (36.0-47.0); HEMOGLOBIN 8.2 g/dl (12.0-15.5); MEAN CORPUSCULAR HEMOGLOBIN 31.4 pg (27.0-33.0); MEAN CORPUSCULAR HGB CONC 29.9 g/dl (32.0-36.5); PLATELET COUNT, AUTOMATED 220 10^3/uL (150-450); RED BLOOD COUNT 2.61 10^6/uL (4.00-5.40)
[2024-02-10 06:21] LABS: BLOOD UREA NITROGEN 34 MG/DL (9-23); CALCIUM LEVEL 8.8 MG/DL (8.3-10.6); CARBON DIOXIDE LEVEL 38 MMOL/L (20-31); CHLORIDE LEVEL 96 MMOL/L (98-107); CREATININE FOR GFR 0.74 MG/DL (0.55-1.30); GLOMERULAR FILTRATION RATE > 60.0 (>45); GLUCOSE, FASTING 114 MG/DL (74-106); POTASSIUM SERUM 4.7 MMOL/L (3.5-5.1); SODIUM LEVEL 132 MMOL/L (136-145)
[2024-02-10] MEDS ORDERED: predniSONE 20 MG TAB PO SCH (09:00)
[2024-02-10 11:35] VITALS: BP 109/60; TEMP 97.7; O2SAT 98
[2024-02-10 20:00] VITALS: BP 129/59; TEMP 97.9; O2SAT 100
[2024-02-10 21:30] LABS: EOS % 0.1 % (0.0-3.0); HEMATOCRIT 31.4 % (36.0-47.0); HEMOGLOBIN 9.3 g/dl (12.0-15.5); LYMPH # 0.4 10^3/uL (1.5-5.0); LYMPH % 5.4 % (24.0-44.0); MEAN CORPUSCULAR HEMOGLOBIN 31.3 pg (27.0-33.0); MEAN CORPUSCULAR HGB CONC 29.6 g/dl (32.0-36.5); MEAN CORPUSCULAR VOLUME 105.7 fl (80.0-96.0); MONO # 0.1 10^3/uL (0.0-0.8); MONO % 1.7 % (2.0-8.0); NEUTROPHILS # 6.5 10^3/uL (1.5-8.5); NEUTROPHILS % 92.4 % (36.0-66.0); PLATELET COUNT, AUTOMATED 224 10^3/uL (150-450); RED BLOOD COUNT 2.97 10^6/uL (4.00-5.40)
[2024-02-10] MEDS: MORPHINE 2 MG/ML 1ML VIAL IV ONE (21:42)
[2024-02-11 04:00] VITALS: BP 109/63; TEMP 97; O2SAT 98
[2024-02-11 06:47] LABS: HEMATOCRIT 28.6 % (36.0-47.0); HEMOGLOBIN 8.4 g/dl (12.0-15.5); MEAN CORPUSCULAR HEMOGLOBIN 30.9 pg (27.0-33.0); MEAN CORPUSCULAR HGB CONC 29.4 g/dl (32.0-36.5); MEAN CORPUSCULAR VOLUME 105.1 fl (80.0-96.0); PLATELET COUNT, AUTOMATED 214 10^3/uL (150-450); RED BLOOD COUNT 2.72 10^6/uL (4.00-5.40); WHITE BLOOD COUNT 5.7 10^3/uL (4.0-10.0)
[2024-02-11 07:06] LABS: BLOOD UREA NITROGEN 16 MG/DL (9-23); CALCIUM LEVEL 9.3 MG/DL (8.3-10.6); CARBON DIOXIDE LEVEL > 40.0 MMOL/L (20-31); CHLORIDE LEVEL 97 MMOL/L (98-107); CREATININE FOR GFR 0.48 MG/DL (0.55-1.30); GLOMERULAR FILTRATION RATE > 60.0 (>45); GLUCOSE, FASTING 76 MG/DL (74-106); POTASSIUM SERUM 4.7 MMOL/L (3.5-5.1); SODIUM LEVEL 138 MMOL/L (136-145)
[2024-02-11 12:00] VITALS: BP 131/76; TEMP 98.1; O2SAT 96
[2024-02-11] MEDS ORDERED: IPRA0.00 INH (13:17)
[2024-02-11] MEDS ORDERED: GLYC5INJ NEB (13:17)
[2024-02-11] MEDS ORDERED: PERF20NE2 INH (13:17)
[2024-02-11] MEDS ORDERED: BUDE0.5S6 NEB (13:17)
[2024-02-11] MEDS ORDERED: HOME1MIS2 XX (13:19)
[2024-02-11] MEDS ORDERED: LIDOCAINE 2% 100MG/5ML SDV (FOR ANES.) As Ordered ONE (16:35)
[2024-02-11] MEDS ORDERED: propofoL 200 MG/20 ML VIAL As Ordered ONE (16:35)
[2024-02-11] MEDS ORDERED: fentaNYL 100 MCG/2 ML INJECTION As Ordered ONE (16:35)
[2024-02-11] MEDS ORDERED: PHENYLephrine 500MCG 5ML (100MCG/ML) SYRINGE As Ordered ONE (16:41)
[2024-02-11] MEDS ORDERED: ePHEDrine SULFATE 25 MG/5 ML(5MG/ML) SYRINGE As Ordered ONE (16:42)
[2024-02-11] MEDS ORDERED: GLYCOPYRROLATE INJ 0.2 MG/ML 2 ML VIAL As Ordered ONE (16:49)
[2024-02-11] MEDS ORDERED: ONDANSETRON 4MG 2ML VIAL IV PRN (17:05)
[2024-02-11] MEDS: LR 1,000 ML IV SCH (18:16)
[2024-02-11 20:00] VITALS: BP 132/68; TEMP 97.8; O2SAT 93
[2024-02-12 04:18] VITALS: BP 116/75; TEMP 98.1; O2SAT 95
[2024-02-12 06:44] LABS: HEMATOCRIT 29.4 % (36.0-47.0); HEMOGLOBIN 8.8 g/dl (12.0-15.5); MEAN CORPUSCULAR HEMOGLOBIN 30.9 pg (27.0-33.0); MEAN CORPUSCULAR HGB CONC 29.9 g/dl (32.0-36.5); MEAN CORPUSCULAR VOLUME 103.2 fl (80.0-96.0); PLATELET COUNT, AUTOMATED 270 10^3/uL (150-450); RED BLOOD COUNT 2.85 10^6/uL (4.00-5.40); WHITE BLOOD COUNT 6.5 10^3/uL (4.0-10.0)
[2024-02-12 07:32] LABS: BLOOD UREA NITROGEN 16 MG/DL (9-23); CALCIUM LEVEL 9.1 MG/DL (8.3-10.6); CARBON DIOXIDE LEVEL > 40.0 MMOL/L (20-31); CHLORIDE LEVEL 96 MMOL/L (98-107); CREATININE FOR GFR 0.51 MG/DL (0.55-1.30); GLOMERULAR FILTRATION RATE > 60.0 (>45); GLUCOSE, FASTING 84 MG/DL (74-106); POTASSIUM SERUM 4.1 MMOL/L (3.5-5.1); SODIUM LEVEL 136 MMOL/L (136-145)
[2024-02-12 08:00] VITALS: BP 117/76; TEMP 97.7; O2SAT 95
[2024-02-12] MEDS: predniSONE 20 MG TAB PO SCH (09:06)
[2024-02-12] MEDS: FLUBLOK(EGGFREE) TRIVAL(24-25) VACCINE PF 0.5ML SYRINGE 18YRS & OLDER IM.IMMUN ONE (10:11)
[2024-02-12] MEDS ORDERED: PRED10TA2 PO (11:17)
[2024-02-12] MEDS ORDERED: PRED20TA PO (11:17)
[2024-02-12 12:00] VITALS: BP 115/75; TEMP 97.7; O2SAT 95
[2024-02-12] MEDS ORDERED: ENSULIQ51 PO (13:18)
== END 2024-02-12 14:04 | disposition home health service (06) | DRG 133 ==
LOC: EDBD 12:52 → M ED 12:52 → M ED INP 15:03 → M ICU 17:18 → M MSPAV 02-08 21:25
PROVIDERS: ADMIT Internal Medicine Pulmonary Disease; ATTEND Student in an Organized Health Care Education/Training Program
PROC: 0DJ08ZZ Inspection of Upper Intestinal Tract, Via Natural or Artificial Opening Endoscopic (ICD-10-PCS; principal; 2024-02-11 16:30)
DX: J96.21 Acute and chronic respiratory failure with hypoxia (principal); R64 Cachexia; I50.32 Chronic diastolic (congestive) heart failure; D62 Acute posthemorrhagic anemia; E87.1 Hypo-osmolality and hyponatremia; I27.20 Pulmonary hypertension, unspecified; Z99.81 Dependence on supplemental oxygen; J44.1 Chronic obstructive pulmonary disease with (acute) exacerbation; K92.2 Gastrointestinal hemorrhage, unspecified; B34.9 Viral infection, unspecified; F17.210 Nicotine dependence, cigarettes, uncomplicated; G25.81 Restless legs syndrome; I73.9 Peripheral vascular disease, unspecified; K21.9 Gastro-esophageal reflux disease without esophagitis; K92.1 Melena; N39.0 Urinary tract infection, site not specified; Z86.718 Personal history of other venous thrombosis and embolism; Z79.899 Other long term (current) drug therapy; Z79.82 Long term (current) use of aspirin; F10.10 Alcohol abuse, uncomplicated; K31.819 Angiodysplasia of stomach and duodenum without bleeding; J96.22 Acute and chronic respiratory failure with hypercapnia

== ENCOUNTER 2024-05-10 20:28 | Inpatient (IN) | payer MEDICAID, OTHER ==
[~2024-05-10] VITALS: Ht 152.4 cm; Wt 49.1 kg
[~2024-05-10 20:28] MED LIST changes: -ADV250INH INH; +ADVA1AER9 INH; +BUDE0.5S6 NEB; +ENSULIQ51 PO; +FLUT1BLS8 INH; +GLYC5INJ NEB; +HOME1MIS2 XX; +IPRA0.00 INH; +MULTTAB14 PO; +PERF20NE2 INH
[2024-05-10 21:01] LABS: BASO % 0.4 % (0.0-1.0); EOS # 0.1 10^3/uL (0.0-0.5); EOS % 1.3 % (0.0-3.0); LYMPH # 1.4 10^3/uL (1.5-5.0); LYMPH % 14.6 % (24.0-44.0); MEAN CORPUSCULAR HGB CONC 27.6 g/dl (32.0-36.5); MEAN CORPUSCULAR VOLUME 86.8 fl (80.0-96.0); MONO # 0.5 10^3/uL (0.0-0.8); MONO % 5.5 % (2.0-8.0); NEUTROPHILS # 7.2 10^3/uL (1.5-8.5); NEUTROPHILS % 77.9 % (36.0-66.0); PLATELET COUNT, AUTOMATED 297 10^3/uL (150-450); RED BLOOD COUNT 2.42 10^6/uL (4.00-5.40); WHITE BLOOD COUNT 9.2 10^3/uL (4.0-10.0)
[2024-05-10] MEDS: LEVALBUTEROL 1.25MG 0.5ML CONCENTRATE NEB NEB PRN (21:01)
[2024-05-10 21:15] LABS: HEMOGLOBIN 5.8 g/dl (12.0-15.5)
[2024-05-10 21:17] LABS: VENOUS BASE EXCESS 6.6 (-2.0-2.0); VENOUS HCO3 33.5 MMOL/L (23.0-27.0); VENOUS O2 SATURATION 79.8 % (60.0-80.0); VENOUS PARTIAL PRESSURE CO2 65.7 mmHg (38.0-50.0); VENOUS PH 7.325 UNITS (7.330-7.430); VENOUS STANDARD HCO3 30.3 MMOL/L; VENOUS TOTAL CO2 35.5 MMOL/L (24.0-28.0)
[2024-05-10 21:30] LABS: ALBUMIN 2.8 G/DL (3.2-5.2); ALKALINE PHOSPHATASE 108 U/L (35-104); ALT/SGPT < 9 U/L (7.0-40); AST/SGOT 8 U/L (<34); BILIRUBIN,DIRECT < 0.1 MG/DL (<0.4); BILIRUBIN,TOTAL 0.3 MG/DL (0.3-1.2); BLOOD UREA NITROGEN 14 MG/DL (9-23); CALCIUM LEVEL 8.2 MG/DL (8.3-10.6); CARBON DIOXIDE LEVEL 37 MMOL/L (20-31); CHLORIDE LEVEL 92 MMOL/L (98-107); CREATININE FOR GFR 0.66 MG/DL (0.55-1.30); GLOMERULAR FILTRATION RATE > 60.0 (>45); GLUCOSE, FASTING 100 MG/DL (74-106); POTASSIUM SERUM 4.3 MMOL/L (3.5-5.1); SODIUM LEVEL 135 MMOL/L (136-145); TOTAL PROTEIN 6.2 G/DL (5.7-8.2)
[2024-05-10] MEDS ORDERED: ALBU8.5H INH (22:30)
[2024-05-10] MEDS ORDERED: DOCU100C16 PO (22:31)
[2024-05-10] MEDS ORDERED: HOME MED LIST COMPLETE! XX SCH (22:35)
[2024-05-10] MEDS ORDERED: MAALOX 30 ML SUSP *UDC PO PRN (23:05)
[2024-05-10] MEDS ORDERED: ALBUTEROL SULFATE 2.5MG/0.5ML INH NEB SOLN INH PRN (23:05)
[2024-05-10] MEDS ORDERED: MOM 30ML SUSPENSION UDC PO PRN (23:05)
[2024-05-10] MEDS ORDERED: UNRESOLVED CLARIFICATION ENTRY XX STA (23:20)
[2024-05-10 23:22] VITALS: BP 107/64; TEMP 98; O2SAT 97
[2024-05-10 23:42] VITALS: BP 121/66; TEMP 98.2; O2SAT 97
[2024-05-10 23:57] LABS: THYROID STIMULATING HORMONE 1.776 uIU/ML (0.55-4.78)
[2024-05-11] VITALS (31 sets, daily range): BP systolic 116–139; BP diastolic 64–87; TEMP 97.3–98.7; O2SAT 95–100
[2024-05-11] MEDS: SODIUM CHLORIDE 0.9% 1000 ML IV SCH (01:18)
[2024-05-11] MEDS: ACETAMINOPHEN 325 MG TAB PO PRN (01:19)
[2024-05-11] MEDS: LevoFLOXacin 750 MG TABLET PO SCH (01:19)
[2024-05-11] MEDS ORDERED: IPRATROPIUM 0.5MG/ALBUTEROL 2.5MG INH SOL UD 3ML (DUONEB) NEB SCH (02:00)
[2024-05-11] MEDS: D5W/0.9% SODIUM CHLORIDE 1,000 ML IV SCH (02:23)
[2024-05-11] MEDS: methylPREDNISolone 125MG 2ML VIAL IV SCH (02:30)
[2024-05-11] MEDS: PANTOPRAZOLE 40MG VIAL IV ONE (02:31)
[2024-05-11 07:07] LABS: HEMATOCRIT 29.7 % (36.0-47.0); MEAN CORPUSCULAR HEMOGLOBIN 25.7 pg (27.0-33.0); MEAN CORPUSCULAR HGB CONC 29.6 g/dl (32.0-36.5); MEAN CORPUSCULAR VOLUME 86.6 fl (80.0-96.0); PLATELET COUNT, AUTOMATED 222 10^3/uL (150-450); RED BLOOD COUNT 3.43 10^6/uL (4.00-5.40); WHITE BLOOD COUNT 5.3 10^3/uL (4.0-10.0)
[2024-05-11 07:10] LABS: INR 1.07; PARTIAL THROMBOPLASTIN TIME 27.7 SECONDS (24.8-34.2); PROTHROMBIN TIME 14.2 SECONDS (12.5-14.5)
[2024-05-11 07:31] LABS: PROCALCITONIN 0.07 ng/ml
[2024-05-11 07:34] LABS: ALBUMIN 2.8 G/DL (3.2-5.2); ALKALINE PHOSPHATASE 122 U/L (35-104); ALT/SGPT < 9 U/L (7.0-40); AST/SGOT 16 U/L (<34); BLOOD UREA NITROGEN 18 MG/DL (9-23); CALCIUM LEVEL 8.2 MG/DL (8.3-10.6); CARBON DIOXIDE LEVEL 36 MMOL/L (20-31); CHLORIDE LEVEL 98 MMOL/L (98-107); CREATININE FOR GFR 0.49 MG/DL (0.55-1.30); GLOMERULAR FILTRATION RATE > 60.0 (>45); GLUCOSE, FASTING 159 MG/DL (74-106); MAGNESIUM LEVEL 1.6 MG/DL (1.8-2.4); POTASSIUM SERUM 4.9 MMOL/L (3.5-5.1); SODIUM LEVEL 138 MMOL/L (136-145); TOTAL PROTEIN 6.6 G/DL (5.7-8.2)
[2024-05-11 07:44] LABS: HEMOGLOBIN 8.8 g/dl (12.0-15.5)
[2024-05-11] MEDS: DOCUSATE SODIUM 100MG CAPSULE PO SCH (08:15)
[2024-05-11] MEDS: guaiFENesin ER TABLET 600 MG TAB PO SCH (08:15)
[2024-05-11] MEDS: NICOTINE 21MG/24HR 1 EA TRANSDERMAL TD SCH (08:15)
[2024-05-11] MEDS: FUROSEMIDE 40 MG TAB PO SCH (08:16)
[2024-05-11] MEDS: PANTOPRAZOLE 40MG VIAL IV SCH (08:16)
[2024-05-11] MEDS: MAG SULF 1GM/100ML (MAG RUN) 1 GM in IV 1 EA IV SCH (08:19)
[2024-05-11] MEDS: COMBIVENT RESPIMAT 100-20MCG INHALER 4GM INH PRN (08:44)
[2024-05-11] MEDS ORDERED: ENOXAPARIN 40MG/0.4ML SYRINGE (J1650 PER 10MG) SC SCH (09:00)
[2024-05-11] MEDS ORDERED: ASPIRIN 81MG ENTERIC TABLET PO SCH (09:00)
[2024-05-11] MEDS: SUCRALFATE SUSP 1GM/10ML UD PO SCH (12:00)
[2024-05-11] MEDS: CALCIUM CARBONATE 500 MG CHEW U/D PO PRN (13:44)
[2024-05-11] MEDS: REMDESIVIR 200 MG in NS 250 ML IV ONE (16:29)
[2024-05-11] MEDS: AZITHROMYCIN 250MG TABLET PO SCH (21:57)
[2024-05-11] MEDS: SERTRALINE 100 MG TAB PO SCH (21:57)
[2024-05-12] MEDS: ANALGESIC BALM CRM 3OZ TOP PRN (02:12)
[2024-05-12 04:07] VITALS: BP 142/78; TEMP 97.8; O2SAT 98
[2024-05-12 08:01] VITALS: BP 132/87; TEMP 97.6; O2SAT 93
[2024-05-12 10:28] LABS: BASO % 0.2 % (0.0-1.0); HEMOGLOBIN 9.2 g/dl (12.0-15.5); LYMPH # 0.8 10^3/uL (1.5-5.0); LYMPH % 8.2 % (24.0-44.0); MEAN CORPUSCULAR HEMOGLOBIN 25.7 pg (27.0-33.0); MEAN CORPUSCULAR HGB CONC 28.8 g/dl (32.0-36.5); MEAN CORPUSCULAR VOLUME 89.4 fl (80.0-96.0); MONO # 0.6 10^3/uL (0.0-0.8); MONO % 6.7 % (2.0-8.0); NEUTROPHILS # 8.1 10^3/uL (1.5-8.5); NEUTROPHILS % 84.5 % (36.0-66.0); PLATELET COUNT, AUTOMATED 250 10^3/uL (150-450); RED BLOOD COUNT 3.58 10^6/uL (4.00-5.40); WHITE BLOOD COUNT 9.6 10^3/uL (4.0-10.0)
[2024-05-12 10:58] LABS: BLOOD UREA NITROGEN 16 MG/DL (9-23); CALCIUM LEVEL 8.4 MG/DL (8.3-10.6); CARBON DIOXIDE LEVEL > 40.0 MMOL/L (20-31); CHLORIDE LEVEL 92 MMOL/L (98-107); CREATININE FOR GFR 0.48 MG/DL (0.55-1.30); GLOMERULAR FILTRATION RATE > 60.0 (>45); GLUCOSE, FASTING 93 MG/DL (74-106); POTASSIUM SERUM 4.3 MMOL/L (3.5-5.1); SODIUM LEVEL 134 MMOL/L (136-145)
[2024-05-12 15:56] VITALS: BP 124/63; TEMP 97.1; O2SAT 96
[2024-05-12] MEDS ORDERED: REMDESIVIR 100 MG in NS 250 ML IV SCH (16:00)
[2024-05-12] MEDS: REMDESIVIR 100 MG in NS 100 ML IV SCH (17:48)
[2024-05-12 19:22] VITALS: BP 120/68; TEMP 97.8; O2SAT 99
[2024-05-13 03:13] VITALS: BP 112/77; TEMP 97.5; O2SAT 94
[2024-05-13] MEDS: ALBUTEROL 90 MCG/ACT 8GM HFA INHALER INH PRN (04:53)
[2024-05-13 06:00] LABS: BASO % 0.3 % (0.0-1.0); EOS # 0.1 10^3/uL (0.0-0.5); EOS % 1.1 % (0.0-3.0); HEMATOCRIT 34.4 % (36.0-47.0); HEMOGLOBIN 9.5 g/dl (12.0-15.5); LYMPH # 1.1 10^3/uL (1.5-5.0); LYMPH % 14.1 % (24.0-44.0); MEAN CORPUSCULAR HEMOGLOBIN 25.5 pg (27.0-33.0); MEAN CORPUSCULAR HGB CONC 27.6 g/dl (32.0-36.5); MEAN CORPUSCULAR VOLUME 92.5 fl (80.0-96.0); MONO # 0.5 10^3/uL (0.0-0.8); MONO % 6.2 % (2.0-8.0); NEUTROPHILS # 6.2 10^3/uL (1.5-8.5); PLATELET COUNT, AUTOMATED 229 10^3/uL (150-450); RED BLOOD COUNT 3.72 10^6/uL (4.00-5.40); WHITE BLOOD COUNT 7.9 10^3/uL (4.0-10.0)
[2024-05-13 06:28] LABS: BLOOD UREA NITROGEN 18 MG/DL (9-23); CALCIUM LEVEL 8.5 MG/DL (8.3-10.6); CARBON DIOXIDE LEVEL > 40.0 MMOL/L (20-31); CHLORIDE LEVEL 91 MMOL/L (98-107); CREATININE FOR GFR 0.47 MG/DL (0.55-1.30); GLOMERULAR FILTRATION RATE > 60.0 (>45); GLUCOSE, FASTING 134 MG/DL (74-106); POTASSIUM SERUM 3.9 MMOL/L (3.5-5.1); SODIUM LEVEL 136 MMOL/L (136-145)
[2024-05-13 06:56] VITALS: BP 123/67; TEMP 97.5; O2SAT 97
[2024-05-13] MEDS: ADVAIR HFA 230/21MCG INHALER INH SCH (09:26)
[2024-05-13] MEDS: TIOTROPIUM INHALER/CAPSULE (SPIRIVA) INH SCH (09:26)
[2024-05-13] MEDS ORDERED: ALBUTEROL SULFATE 2.5MG/0.5ML INH NEB SOLN NEB PRN (10:45)
[2024-05-13 11:06] LABS: CPK CREATINE PHOSPHOKINASE 17 U/L (34-145)
[2024-05-13 11:09] LABS: CK-MB VALUE MASS 1.4 NG/ML (<3.6); MB/CK RELATIVE INDEX 8.23 (< OR =4)
[2024-05-13] MEDS ORDERED: COMBIVENT RESPIMAT 100-20MCG INHALER 4GM INH PRN (11:50)
[2024-05-13] MEDS: COMBIVENT RESPIMAT 100-20MCG INHALER 4GM INH SCH (11:55)
[2024-05-13] MEDS ORDERED: IPRATROPIUM 0.5MG/ALBUTEROL 2.5MG INH SOL UD 3ML (DUONEB) NEB SCH (12:00)
[2024-05-13 16:00] VITALS: BP 128/68; TEMP 98.3
[2024-05-13 19:20] VITALS: BP 104/60; TEMP 98.4; O2SAT 94
[2024-05-14] VITALS (9 sets, daily range): BP systolic 101–130; BP diastolic 59–78; TEMP 97.7–98.3; O2SAT 86–98
[2024-05-14 06:03] LABS: HEMATOCRIT 31.2 % (36.0-47.0); HEMOGLOBIN 8.8 g/dl (12.0-15.5); MEAN CORPUSCULAR HEMOGLOBIN 25.6 pg (27.0-33.0); MEAN CORPUSCULAR HGB CONC 28.2 g/dl (32.0-36.5); MEAN CORPUSCULAR VOLUME 90.7 fl (80.0-96.0); PLATELET COUNT, AUTOMATED 224 10^3/uL (150-450); RED BLOOD COUNT 3.44 10^6/uL (4.00-5.40); WHITE BLOOD COUNT 6.8 10^3/uL (4.0-10.0)
[2024-05-14 06:22] LABS: ALBUMIN 2.5 G/DL (3.2-5.2); ALKALINE PHOSPHATASE 92 U/L (35-104); ALT/SGPT 9 U/L (7.0-40); AST/SGOT 8 U/L (<34); BILIRUBIN,TOTAL 0.3 MG/DL (0.3-1.2); BLOOD UREA NITROGEN 19 MG/DL (9-23); CALCIUM LEVEL 8.2 MG/DL (8.3-10.6); CARBON DIOXIDE LEVEL > 40.0 MMOL/L (20-31); CHLORIDE LEVEL 86 MMOL/L (98-107); CREATININE FOR GFR 0.41 MG/DL (0.55-1.30); GLOMERULAR FILTRATION RATE > 60.0 (>45); GLUCOSE, FASTING 87 MG/DL (74-106); POTASSIUM SERUM 3.9 MMOL/L (3.5-5.1); SODIUM LEVEL 137 MMOL/L (136-145); TOTAL PROTEIN 5.5 G/DL (5.7-8.2)
[2024-05-15 03:35] VITALS: BP 151/92; TEMP 97.3; O2SAT 99
[2024-05-15 06:01] LABS: HEMATOCRIT 31.7 % (36.0-47.0); HEMOGLOBIN 9.2 g/dl (12.0-15.5); MEAN CORPUSCULAR HEMOGLOBIN 25.8 pg (27.0-33.0); PLATELET COUNT, AUTOMATED 206 10^3/uL (150-450); RED BLOOD COUNT 3.56 10^6/uL (4.00-5.40); WHITE BLOOD COUNT 6.6 10^3/uL (4.0-10.0)
[2024-05-15 06:37] LABS: ALBUMIN 2.6 G/DL (3.2-5.2); ALKALINE PHOSPHATASE 85 U/L (35-104); ALT/SGPT 9 U/L (7.0-40); AST/SGOT 9 U/L (<34); BILIRUBIN,TOTAL 0.3 MG/DL (0.3-1.2); BLOOD UREA NITROGEN 16 MG/DL (9-23); CALCIUM LEVEL 8.3 MG/DL (8.3-10.6); CARBON DIOXIDE LEVEL > 40.0 MMOL/L (20-31); CHLORIDE LEVEL 82 MMOL/L (98-107); GLOMERULAR FILTRATION RATE > 60.0 (>45); GLUCOSE, FASTING 85 MG/DL (74-106); SODIUM LEVEL 134 MMOL/L (136-145); TOTAL PROTEIN 5.8 G/DL (5.7-8.2)
[2024-05-15 12:28] VITALS: BP 98/58; TEMP 97.9; O2SAT 96
[2024-05-15] MEDS: ALBUTEROL 90 MCG/ACT 8GM HFA INHALER INH PRN (19:04)
[2024-05-15 20:11] VITALS: BP 103/58; TEMP 99; O2SAT 96
[2024-05-16 03:51] VITALS: BP 122/75; TEMP 98; O2SAT 99
[2024-05-16 06:15] LABS: HEMATOCRIT 30.8 % (36.0-47.0); HEMOGLOBIN 8.6 g/dl (12.0-15.5); MEAN CORPUSCULAR HEMOGLOBIN 25.4 pg (27.0-33.0); MEAN CORPUSCULAR HGB CONC 27.9 g/dl (32.0-36.5); MEAN CORPUSCULAR VOLUME 90.9 fl (80.0-96.0); PLATELET COUNT, AUTOMATED 228 10^3/uL (150-450); RED BLOOD COUNT 3.39 10^6/uL (4.00-5.40); WHITE BLOOD COUNT 7.9 10^3/uL (4.0-10.0)
[2024-05-16 06:32] LABS: ALBUMIN 2.7 G/DL (3.2-5.2); ALKALINE PHOSPHATASE 81 U/L (35-104); ALT/SGPT < 9 U/L (7.0-40); AST/SGOT 9 U/L (<34); BILIRUBIN,TOTAL 0.2 MG/DL (0.3-1.2); BLOOD UREA NITROGEN 18 MG/DL (9-23); CALCIUM LEVEL 8.5 MG/DL (8.3-10.6); CARBON DIOXIDE LEVEL > 40.0 MMOL/L (20-31); CHLORIDE LEVEL 84 MMOL/L (98-107); CREATININE FOR GFR 0.39 MG/DL (0.55-1.30); GLOMERULAR FILTRATION RATE > 60.0 (>45); GLUCOSE, FASTING 69 MG/DL (74-106); SODIUM LEVEL 135 MMOL/L (136-145); TOTAL PROTEIN 5.7 G/DL (5.7-8.2)
[2024-05-16] MEDS ORDERED: SUCR1ORA PO (11:45)
[2024-05-16 12:00] VITALS: BP 110/70; TEMP 98.2; O2SAT 96
== END 2024-05-16 19:17 | disposition home or self-care (01) | DRG 137 ==
LOC: EDBD 20:28 → M ED 20:28 → EEVIPCON 23:02 → M ED INP 23:02 → M PCU 05-11 00:30 → M MSPAV 05-14 11:50
PROVIDERS: ADMIT Student in an Organized Health Care Education/Training Program; ATTEND Family Medicine
DX: U07.1 COVID-19 (principal); I50.32 Chronic diastolic (congestive) heart failure; J96.11 Chronic respiratory failure with hypoxia; D62 Acute posthemorrhagic anemia; I27.20 Pulmonary hypertension, unspecified; Z99.81 Dependence on supplemental oxygen; F17.210 Nicotine dependence, cigarettes, uncomplicated; F39 Unspecified mood [affective] disorder; I73.9 Peripheral vascular disease, unspecified; J20.9 Acute bronchitis, unspecified; J44.0 Chronic obstructive pulmonary disease with (acute) lower respiratory infection; J44.1 Chronic obstructive pulmonary disease with (acute) exacerbation; K21.9 Gastro-esophageal reflux disease without esophagitis; K92.1 Melena; F10.10 Alcohol abuse, uncomplicated; Z79.82 Long term (current) use of aspirin; Z79.899 Other long term (current) drug therapy; Z88.8 Allergy status to other drugs, medicaments and biological substances

== ENCOUNTER 2024-06-13 10:39 | Inpatient (IN) | payer OTHER, MEDICARE ==
[~2024-06-13] VITALS: Ht 152.4 cm; Wt 52.8 kg
[2024-06-13] VITALS (21 sets, daily range): BP systolic 98–145; BP diastolic 63–91; TEMP 97.9–99.6; O2SAT 94–100
[~2024-06-13 10:39] MED LIST changes: +DOCU100C16 PO; +SUCR1ORA PO
[2024-06-13] MEDS ORDERED: NALOXONE 2MG/2ML SYRINGE As Ordered ONE (10:42)
[2024-06-13] MEDS ORDERED: ETOMIDATE INJ 20MG/10ML VIAL ONE (10:55)
[2024-06-13] MEDS ORDERED: propofoL 200 MG/20 ML VIAL ONE (10:55)
[2024-06-13] MEDS ORDERED: SUCCINYLCHOLINE 100MG/5ML SYRINGE ONE (10:55)
[2024-06-13] MEDS: NALOXONE 2MG/2ML SYRINGE IV STA (11:00)
[2024-06-13] MEDS: ETOMIDATE INJ 20MG/10ML VIAL IV STA (11:00)
[2024-06-13] MEDS: SUCCINYLCHOLINE INJ 200MG/10ML VIAL IV STA (11:00)
[2024-06-13 11:22] LABS: BASO % 0.2 % (0.0-1.0); EOS % 0.3 % (0.0-3.0); HEMATOCRIT 30.4 % (36.0-47.0); HEMOGLOBIN 8.4 g/dl (12.0-15.5); LYMPH % 10.8 % (24.0-44.0); MEAN CORPUSCULAR HEMOGLOBIN 26.7 pg (27.0-33.0); MEAN CORPUSCULAR HGB CONC 27.6 g/dl (32.0-36.5); MEAN CORPUSCULAR VOLUME 96.5 fl (80.0-96.0); MONO # 0.5 10^3/uL (0.0-0.8); MONO % 5.7 % (2.0-8.0); NEUTROPHILS # 7.7 10^3/uL (1.5-8.5); NEUTROPHILS % 81.6 % (36.0-66.0); PLATELET COUNT, AUTOMATED 231 10^3/uL (150-450); RED BLOOD COUNT 3.15 10^6/uL (4.00-5.40); WHITE BLOOD COUNT 9.5 10^3/uL (4.0-10.0)
[2024-06-13] MEDS: propofoL 1,000 MG in IV 1 EA IV SCH ×2 (11:23→16:56)
[2024-06-13] MEDS ORDERED: FENTANYL DRIP LOCK BOX KEY 1 EACH XX PRN ×2 (11:30→16:25)
[2024-06-13 11:35] LABS: INR 1.06; PROTHROMBIN TIME 14.1 SECONDS (12.5-14.5)
[2024-06-13] MEDS: fentaNYL CITRATE/NaCl 1,000 MCG in IV 1 EA IV SCH ×2 (11:44→21:26)
[2024-06-13 11:45] LABS: ABG BASE EXCESS 0.8 (-2.0-2.0); ABG HCO3 29.7 MMOL/L (22.0-26.0); ABG PARTIAL PRESSURE O2 465.3 mmHg (75.0-100.0); ABG STANDARD HCO3 25.2 MMOL/L. (22.0-26.0); ABG TOTAL CO2 32.1 MMOL/L (23.0-31.0)
[2024-06-13] MEDS: MIDAZOLAM 100MG/100ML-0.9%NACL 100 MG in IV 1 EA IV SCH ×2 (11:45→16:55)
[2024-06-13] MEDS: MIDAZOLAM INJ 2MG/2ML VIAL IV PRN ×2 (11:47→18:49)
[2024-06-13 11:50] LABS: ABG pH (ARTERIAL) 7.204 UNITS (7.350-7.450)
[2024-06-13] MEDS: [UNRECOGNIZED DRUG - OTHER] IV ONE (12:15)
[2024-06-13] MEDS: NS 0.9% IV ONE (12:15)
[2024-06-13 13:03] LABS: CK-MB VALUE MASS 1.8 NG/ML (<3.6); ETHYL ALCOHOL (ETHANOL) < 0.003 % (0.000-0.010)
[2024-06-13 13:04] LABS: CPK CREATINE PHOSPHOKINASE 39 U/L (34-145); MB/CK RELATIVE INDEX 4.61 (< OR =4)
[2024-06-13 13:24] LABS: AMPHETAMINES LEVEL URINE NEGATIVE (NEGATIVE); BARBITURATES URINE NEGATIVE (NEGATIVE); BENZODIAZEPINES URINE NEGATIVE (NEGATIVE); COCAINE METABOLITE URINE NEGATIVE (NEGATIVE); PHENCYCLIDINE URINE NEGATIVE (NEGATIVE)
[2024-06-13] MEDS: methylPREDNISolone 125MG 2ML VIAL IV ONE (13:24)
[2024-06-13 13:25] LABS: METHADONE URINE NEGATIVE (NEGATIVE); OPIATES URINE NEGATIVE (NEGATIVE)
[2024-06-13 13:27] LABS: CANNABINOIDS URINE POSITIVE (NEGATIVE)
[2024-06-13] MEDS: LevoFLOXacin IV 750 MG in IV 1 EA IV ONE (13:58)
[2024-06-13] MEDS: IPRATROPIUM 0.5MG/ALBUTEROL 2.5MG INH SOL UD 3ML (DUONEB) NEB PRN (14:03)
[2024-06-13 14:20] LABS: C REACTIVE PROTEIN QUANTITATIV 8.13 MG/DL (<1.0); PROCALCITONIN 0.28 ng/ml
[2024-06-13 14:21] LABS: MB/CK RELATIVE INDEX 4.76 (< OR =4)
[2024-06-13 14:22] LABS: BILIRUBIN,DIRECT 0.3 MG/DL (<0.4); BILIRUBIN,TOTAL 0.9 MG/DL (0.3-1.2); CALCIUM LEVEL 7.4 MG/DL (8.3-10.6); CREATININE FOR GFR 1.1 MG/DL (0.55-1.30); GLOMERULAR FILTRATION RATE 53.1 (>45); POTASSIUM SERUM 5.2 MMOL/L (3.5-5.1); TOTAL PROTEIN 6.3 G/DL (5.7-8.2)
[2024-06-13] MEDS ORDERED: ISOVUE-370 76% 100ML VIAL As Ordered ONE (14:42)
[2024-06-13] MEDS ORDERED: IPRA0.00 INH (15:27)
[2024-06-13] MEDS ORDERED: ROPI5TAB19 PO (15:27)
[2024-06-13] MEDS ORDERED: HOME MED LIST COMPLETE! XX SCH (15:30)
[2024-06-13] MEDS ORDERED: NOREPINEPHRINE 4MG IN D5 250ML 4 MG in IV 1 EA IV SCH (16:10)
[2024-06-13] MEDS ORDERED: LevoFLOXacin IV 750 MG in IV 1 EA IV SCH (16:20)
[2024-06-13 16:48] LABS: BASO % 0.1 % (0.0-1.0); EOS # 0.1 10^3/uL (0.0-0.5); EOS % 0.8 % (0.0-3.0); HEMATOCRIT 26.9 % (36.0-47.0); HEMOGLOBIN 7.5 g/dl (12.0-15.5); LYMPH # 0.4 10^3/uL (1.5-5.0); LYMPH % 4.8 % (24.0-44.0); MEAN CORPUSCULAR HEMOGLOBIN 26.5 pg (27.0-33.0); MEAN CORPUSCULAR HGB CONC 27.9 g/dl (32.0-36.5); MEAN CORPUSCULAR VOLUME 95.1 fl (80.0-96.0); MONO # 0.8 10^3/uL (0.0-0.8); MONO % 10.4 % (2.0-8.0); NEUTROPHILS # 6.1 10^3/uL (1.5-8.5); NEUTROPHILS % 83.1 % (36.0-66.0); PLATELET COUNT, AUTOMATED 161 10^3/uL (150-450); RED BLOOD COUNT 2.83 10^6/uL (4.00-5.40); WHITE BLOOD COUNT 7.3 10^3/uL (4.0-10.0)
[2024-06-13] MEDS: dexAMETHasone 20MG/5ML VIAL IV SCH (16:54)
[2024-06-13 16:57] LABS: ALBUMIN 2.6 G/DL (3.2-5.2); ALKALINE PHOSPHATASE 87 U/L (35-104); ALT/SGPT 160 U/L (7.0-40); AST/SGOT 506 U/L (<34); BILIRUBIN,TOTAL 0.8 MG/DL (0.3-1.2); BLOOD UREA NITROGEN 35 MG/DL (9-23); CALCIUM LEVEL 7.6 MG/DL (8.3-10.6); CARBON DIOXIDE LEVEL 34 MMOL/L (20-31); CHLORIDE LEVEL 95 MMOL/L (98-107); CREATININE FOR GFR 0.84 MG/DL (0.55-1.30); GLOMERULAR FILTRATION RATE > 60.0 (>45); GLUCOSE, FASTING 124 MG/DL (74-106); MAGNESIUM LEVEL 1.3 MG/DL (1.8-2.4); PHOSPHORUS LEVEL 2.4 MG/DL (2.4-5.1); POTASSIUM SERUM 4.4 MMOL/L (3.5-5.1); SODIUM LEVEL 135 MMOL/L (136-145); TOTAL PROTEIN 5.7 G/DL (5.7-8.2)
[2024-06-13] MEDS: LR 1,000 ML IV SCH (16:57)
[2024-06-13 17:27] LABS: ABG BASE EXCESS 7.5 (-2.0-2.0); ABG HCO3 31.7 MMOL/L (22.0-26.0); ABG O2 SATURATION 99.4 % (95.0-99.0); ABG PARTIAL PRESSURE O2 312.7 mmHg (75.0-100.0); ABG STANDARD HCO3 31.3 MMOL/L. (22.0-26.0); ABG TOTAL CO2 33.1 MMOL/L (23.0-31.0); ABG pH (ARTERIAL) 7.476 UNITS (7.350-7.450)
[2024-06-13] MEDS: BARICITINIB 2MG TABLET (OLUMIANT) FOR EUA PO SCH (18:49)
[2024-06-13] MEDS: ALBUTEROL SULFATE 2.5MG/0.5ML INH NEB SOLN NEB SCH (19:03)
[2024-06-13] MEDS: IPRATROPIUM 0.02% SOLN 0.5MG 2.5ML NEB NEB SCH (19:03)
[2024-06-13] MEDS: MAG SULF 1GM/100ML (MAG RUN) 1 GM in IV 1 EA IV SCH (20:03)
[2024-06-14] VITALS (94 sets, daily range): BP systolic 101–145; BP diastolic 58–82; TEMP 97.8–98.8; O2SAT 87–100
[2024-06-14 05:04] LABS: HEMATOCRIT 25.5 % (36.0-47.0); HEMOGLOBIN 7.6 g/dl (12.0-15.5); LYMPH # 0.3 10^3/uL (1.5-5.0); LYMPH % 6.8 % (24.0-44.0); MEAN CORPUSCULAR HEMOGLOBIN 26.1 pg (27.0-33.0); MEAN CORPUSCULAR HGB CONC 29.8 g/dl (32.0-36.5); MEAN CORPUSCULAR VOLUME 87.6 fl (80.0-96.0); MONO # 0.2 10^3/uL (0.0-0.8); MONO % 4.1 % (2.0-8.0); NEUTROPHILS # 4.1 10^3/uL (1.5-8.5); NEUTROPHILS % 88.7 % (36.0-66.0); PLATELET COUNT, AUTOMATED 146 10^3/uL (150-450); RED BLOOD COUNT 2.91 10^6/uL (4.00-5.40); WHITE BLOOD COUNT 4.6 10^3/uL (4.0-10.0)
[2024-06-14 05:20] LABS: BLOOD UREA NITROGEN 25 MG/DL (9-23); CALCIUM LEVEL 8.1 MG/DL (8.3-10.6); CARBON DIOXIDE LEVEL 35 MMOL/L (20-31); CHLORIDE LEVEL 94 MMOL/L (98-107); CREATININE FOR GFR 0.64 MG/DL (0.55-1.30); GLOMERULAR FILTRATION RATE > 60.0 (>45); GLUCOSE, FASTING 118 MG/DL (74-106); POTASSIUM SERUM 4.6 MMOL/L (3.5-5.1); SODIUM LEVEL 139 MMOL/L (136-145)
[2024-06-14 05:52] LABS: ABG BASE EXCESS 10.2 (-2.0-2.0); ABG HCO3 33.8 MMOL/L (22.0-26.0); ABG O2 SATURATION 97.3 % (95.0-99.0); ABG PARTIAL PRESSURE CO2 41.8 mmHg (35.0-45.0); ABG STANDARD HCO3 33.9 MMOL/L. (22.0-26.0); ABG TOTAL CO2 35.1 MMOL/L (23.0-31.0); ABG pH (ARTERIAL) 7.526 UNITS (7.350-7.450)
[2024-06-14] MEDS: ASPIRIN 81MG ENTERIC TABLET PO SCH (08:51)
[2024-06-14] MEDS: DOCUSATE SODIUM 100MG CAPSULE PO SCH (08:54)
[2024-06-14] MEDS: ENOXAPARIN 40MG/0.4ML SYRINGE (J1650 PER 10MG) SC SCH (09:00)
[2024-06-14] MEDS: PANTOPRAZOLE 40MG VIAL IV SCH ×2 (09:15→20:05)
[2024-06-14] MEDS: LevoFLOXacin IV 750 MG in IV 1 EA IV SCH (12:30)
[2024-06-14 13:10] LABS: HEMATOCRIT 23.1 % (36.0-47.0); LYMPH # 0.3 10^3/uL (1.5-5.0); LYMPH % 6.8 % (24.0-44.0); MEAN CORPUSCULAR HEMOGLOBIN 26.1 pg (27.0-33.0); MEAN CORPUSCULAR HGB CONC 29.9 g/dl (32.0-36.5); MEAN CORPUSCULAR VOLUME 87.5 fl (80.0-96.0); MONO # 0.2 10^3/uL (0.0-0.8); MONO % 3.1 % (2.0-8.0); NEUTROPHILS # 4.4 10^3/uL (1.5-8.5); NEUTROPHILS % 89.7 % (36.0-66.0); PLATELET COUNT, AUTOMATED 140 10^3/uL (150-450); RED BLOOD COUNT 2.64 10^6/uL (4.00-5.40); WHITE BLOOD COUNT 4.9 10^3/uL (4.0-10.0)
[2024-06-14 13:13] LABS: HEMOGLOBIN 6.9 g/dl (12.0-15.5)
[2024-06-15] VITALS (56 sets, daily range): BP systolic 95–165; BP diastolic 60–98; TEMP 97.6–99.9; O2SAT 88–100
[2024-06-15 04:59] LABS: EOS % 0.6 % (0.0-3.0); HEMATOCRIT 27.9 % (36.0-47.0); HEMOGLOBIN 8.6 g/dl (12.0-15.5); LYMPH # 0.6 10^3/uL (1.5-5.0); LYMPH % 8.4 % (24.0-44.0); MEAN CORPUSCULAR HEMOGLOBIN 26.8 pg (27.0-33.0); MEAN CORPUSCULAR HGB CONC 30.8 g/dl (32.0-36.5); MEAN CORPUSCULAR VOLUME 86.9 fl (80.0-96.0); MONO # 0.5 10^3/uL (0.0-0.8); MONO % 7.2 % (2.0-8.0); NEUTROPHILS % 83.4 % (36.0-66.0); PLATELET COUNT, AUTOMATED 150 10^3/uL (150-450); RED BLOOD COUNT 3.21 10^6/uL (4.00-5.40); WHITE BLOOD COUNT 7.2 10^3/uL (4.0-10.0)
[2024-06-15 05:15] LABS: ABG BASE EXCESS 9.1 (-2.0-2.0); ABG HCO3 33.2 MMOL/L (22.0-26.0); ABG O2 SATURATION 98.4 % (95.0-99.0); ABG PARTIAL PRESSURE CO2 43.5 mmHg (35.0-45.0); ABG PARTIAL PRESSURE O2 109.1 mmHg (75.0-100.0); ABG STANDARD HCO3 32.9 MMOL/L. (22.0-26.0); ABG TOTAL CO2 34.5 MMOL/L (23.0-31.0)
[2024-06-15 05:28] LABS: ALBUMIN 2.5 G/DL (3.2-5.2); ALKALINE PHOSPHATASE 76 U/L (35-104); ALT/SGPT 121 U/L (7.0-40); AST/SGOT 174 U/L (<34); BILIRUBIN,TOTAL 0.7 MG/DL (0.3-1.2); BLOOD UREA NITROGEN 17 MG/DL (9-23); CALCIUM LEVEL 8.8 MG/DL (8.3-10.6); CARBON DIOXIDE LEVEL 32 MMOL/L (20-31); CHLORIDE LEVEL 96 MMOL/L (98-107); CREATININE FOR GFR 0.51 MG/DL (0.55-1.30); GLOMERULAR FILTRATION RATE > 60.0 (>45); GLUCOSE, FASTING 96 MG/DL (74-106); POTASSIUM SERUM 4.6 MMOL/L (3.5-5.1); SODIUM LEVEL 136 MMOL/L (136-145); TOTAL PROTEIN 5.6 G/DL (5.7-8.2)
[2024-06-15] MEDS: FORMOTEROL FUMARATE 20 MCG/2 ML INHALATION SOLUTION (PERFOROMIST) INH SCH (20:12)
[2024-06-15] MEDS: GLYCOPYRROLATE INJ 0.2 MG/ML 2 ML VIAL NEB SCH (20:12)
[2024-06-15] MEDS: ALBUTEROL SULFATE 2.5MG/0.5ML INH NEB SOLN NEB SCH (20:13)
[2024-06-15] MEDS: rOPINIRole 0.25 MG TAB(REQUIP) PO SCH (20:34)
[2024-06-15] MEDS: SERTRALINE 100 MG TAB PO SCH (20:35)
[2024-06-15] MEDS: guaiFENesin ER TABLET 600 MG TAB PO SCH (20:35)
[2024-06-16] VITALS (18 sets, daily range): BP systolic 126–155; BP diastolic 73–91; TEMP 97.7–98.5; O2SAT 92–100
[2024-06-16 04:42] LABS: HEMATOCRIT 30.5 % (36.0-47.0); HEMOGLOBIN 8.9 g/dl (12.0-15.5); LYMPH # 0.6 10^3/uL (1.5-5.0); LYMPH % 7.2 % (24.0-44.0); MEAN CORPUSCULAR HEMOGLOBIN 26.7 pg (27.0-33.0); MEAN CORPUSCULAR HGB CONC 29.2 g/dl (32.0-36.5); MEAN CORPUSCULAR VOLUME 91.6 fl (80.0-96.0); MONO # 0.6 10^3/uL (0.0-0.8); MONO % 6.6 % (2.0-8.0); NEUTROPHILS # 7.2 10^3/uL (1.5-8.5); PLATELET COUNT, AUTOMATED 144 10^3/uL (150-450); RED BLOOD COUNT 3.33 10^6/uL (4.00-5.40); WHITE BLOOD COUNT 8.4 10^3/uL (4.0-10.0)
[2024-06-16 05:10] LABS: ALBUMIN 2.7 G/DL (3.2-5.2); ALKALINE PHOSPHATASE 73 U/L (35-104); ALT/SGPT 99 U/L (7.0-40); AST/SGOT 83 U/L (<34); BILIRUBIN,TOTAL 0.4 MG/DL (0.3-1.2); BLOOD UREA NITROGEN 15 MG/DL (9-23); CALCIUM LEVEL 8.7 MG/DL (8.3-10.6); CARBON DIOXIDE LEVEL 35 MMOL/L (20-31); CHLORIDE LEVEL 96 MMOL/L (98-107); CREATININE FOR GFR 0.39 MG/DL (0.55-1.30); GLOMERULAR FILTRATION RATE > 60.0 (>45); GLUCOSE, FASTING 95 MG/DL (74-106); POTASSIUM SERUM 5.2 MMOL/L (3.5-5.1); SODIUM LEVEL 134 MMOL/L (136-145)
[2024-06-16] MEDS: predniSONE 20 MG TAB PO SCH (10:35)
[2024-06-16] MEDS: LevoFLOXacin 750 MG TABLET PO SCH (10:44)
[2024-06-17] VITALS (11 sets, daily range): BP systolic 123–158; BP diastolic 69–85; TEMP 97.8–98.6; O2SAT 91–99
[2024-06-17 05:31] LABS: HEMATOCRIT 32.6 % (36.0-47.0); LYMPH # 0.7 10^3/uL (1.5-5.0); LYMPH % 15.7 % (24.0-44.0); MEAN CORPUSCULAR HEMOGLOBIN 26.8 pg (27.0-33.0); MEAN CORPUSCULAR HGB CONC 27.6 g/dl (32.0-36.5); MONO # 0.5 10^3/uL (0.0-0.8); MONO % 10.6 % (2.0-8.0); NEUTROPHILS # 3.2 10^3/uL (1.5-8.5); NEUTROPHILS % 71.9 % (36.0-66.0); PLATELET COUNT, AUTOMATED 148 10^3/uL (150-450); RED BLOOD COUNT 3.36 10^6/uL (4.00-5.40); WHITE BLOOD COUNT 4.5 10^3/uL (4.0-10.0)
[2024-06-17 05:56] LABS: ALBUMIN 2.7 G/DL (3.2-5.2); ALKALINE PHOSPHATASE 74 U/L (35-104); ALT/SGPT 77 U/L (7.0-40); AST/SGOT 40 U/L (<34); BILIRUBIN,TOTAL 0.2 MG/DL (0.3-1.2); BLOOD UREA NITROGEN 18 MG/DL (9-23); CALCIUM LEVEL 8.4 MG/DL (8.3-10.6); CARBON DIOXIDE LEVEL 40 MMOL/L (20-31); CHLORIDE LEVEL 96 MMOL/L (98-107); CREATININE FOR GFR 0.43 MG/DL (0.55-1.30); GLOMERULAR FILTRATION RATE > 60.0 (>45); GLUCOSE, FASTING 94 MG/DL (74-106); SODIUM LEVEL 138 MMOL/L (136-145); TOTAL PROTEIN 6.1 G/DL (5.7-8.2)
[2024-06-17 08:32] LABS: VENOUS BASE EXCESS 7.9 (-2.0-2.0); VENOUS HCO3 37.9 MMOL/L (23.0-27.0); VENOUS O2 SATURATION 99.6 % (60.0-80.0); VENOUS PARTIAL PRESSURE CO2 93.1 mmHg (38.0-50.0); VENOUS PARTIAL PRESSURE O2 245.5 mmHg (30.0-50.0); VENOUS PH 7.228 UNITS (7.330-7.430); VENOUS STANDARD HCO3 31.8 MMOL/L; VENOUS TOTAL CO2 40.8 MMOL/L (24.0-28.0)
[2024-06-17] MEDS: ACETAMINOPHEN 325 MG TAB PO PRN (10:16)
[2024-06-17 16:54] LABS: ABG BASE EXCESS 7.4 (-2.0-2.0); ABG HCO3 37.5 MMOL/L (22.0-26.0); ABG O2 SATURATION 98.7 % (95.0-99.0); ABG PARTIAL PRESSURE O2 128.8 mmHg (75.0-100.0); ABG STANDARD HCO3 31.2 MMOL/L. (22.0-26.0); ABG TOTAL CO2 40.5 MMOL/L (23.0-31.0)
[2024-06-17 17:07] LABS: ABG PARTIAL PRESSURE CO2 96.9 mmHg (35.0-45.0); ABG pH (ARTERIAL) 7.206 UNITS (7.350-7.450)
[2024-06-18] VITALS (7 sets, daily range): BP systolic 117–160; BP diastolic 62–82; TEMP 97.5–98.7; O2SAT 86–100
[2024-06-18 05:40] LABS: VENOUS BASE EXCESS 11.2 (-2.0-2.0); VENOUS HCO3 38.9 MMOL/L (23.0-27.0); VENOUS PARTIAL PRESSURE CO2 74.1 mmHg (38.0-50.0); VENOUS PARTIAL PRESSURE O2 164.1 mmHg (30.0-50.0); VENOUS PH 7.338 UNITS (7.330-7.430); VENOUS STANDARD HCO3 34.9 MMOL/L; VENOUS TOTAL CO2 41.2 MMOL/L (24.0-28.0)
[2024-06-18 05:43] LABS: EOS % 0.4 % (0.0-3.0); HEMATOCRIT 28.9 % (36.0-47.0); HEMOGLOBIN 8.1 g/dl (12.0-15.5); LYMPH # 1.2 10^3/uL (1.5-5.0); LYMPH % 16.8 % (24.0-44.0); MEAN CORPUSCULAR HEMOGLOBIN 27.3 pg (27.0-33.0); MEAN CORPUSCULAR VOLUME 97.3 fl (80.0-96.0); MONO # 0.8 10^3/uL (0.0-0.8); MONO % 11.1 % (2.0-8.0); NEUTROPHILS % 70.4 % (36.0-66.0); PLATELET COUNT, AUTOMATED 182 10^3/uL (150-450); RED BLOOD COUNT 2.97 10^6/uL (4.00-5.40)
[2024-06-18 06:16] LABS: ALBUMIN 2.5 G/DL (3.2-5.2); ALKALINE PHOSPHATASE 66 U/L (35-104); ALT/SGPT 53 U/L (7.0-40); AST/SGOT 25 U/L (<34); BILIRUBIN,TOTAL 0.2 MG/DL (0.3-1.2); BLOOD UREA NITROGEN 18 MG/DL (9-23); CALCIUM LEVEL 7.8 MG/DL (8.3-10.6); CARBON DIOXIDE LEVEL > 40.0 MMOL/L (20-31); CHLORIDE LEVEL 97 MMOL/L (98-107); CREATININE FOR GFR 0.48 MG/DL (0.55-1.30); GLOMERULAR FILTRATION RATE > 60.0 (>45); GLUCOSE, FASTING 85 MG/DL (74-106); POTASSIUM SERUM 4.4 MMOL/L (3.5-5.1); SODIUM LEVEL 142 MMOL/L (136-145); TOTAL PROTEIN 5.4 G/DL (5.7-8.2)
[2024-06-18 14:29] LABS: VENOUS BASE EXCESS 12.4 (-2.0-2.0); VENOUS HCO3 38.4 MMOL/L (23.0-27.0); VENOUS O2 SATURATION 99.5 % (60.0-80.0); VENOUS PARTIAL PRESSURE CO2 58.1 mmHg (38.0-50.0); VENOUS PARTIAL PRESSURE O2 182.3 mmHg (30.0-50.0); VENOUS PH 7.438 UNITS (7.330-7.430); VENOUS STANDARD HCO3 36.2 MMOL/L; VENOUS TOTAL CO2 40.2 MMOL/L (24.0-28.0)
[2024-06-18] MEDS: LEVALBUTEROL 1.25MG 0.5ML CONCENTRATE NEB NEB ONE (17:12)
[2024-06-18] MEDS: dexAMETHasone 20MG/5ML VIAL IV ONE (17:21)
[2024-06-18] MEDS: LEVALBUTEROL 1.25MG 0.5ML CONCENTRATE NEB INH PRN (19:42)
[2024-06-19] VITALS (10 sets, daily range): BP systolic 131–158; BP diastolic 68–94; TEMP 97.6–98.3; O2SAT 93–100
[2024-06-19 04:46] LABS: EOS % 0.1 % (0.0-3.0); HEMATOCRIT 28.4 % (36.0-47.0); LYMPH # 0.8 10^3/uL (1.5-5.0); LYMPH % 11.3 % (24.0-44.0); MEAN CORPUSCULAR HEMOGLOBIN 26.8 pg (27.0-33.0); MEAN CORPUSCULAR HGB CONC 28.2 g/dl (32.0-36.5); MONO # 0.7 10^3/uL (0.0-0.8); MONO % 9.5 % (2.0-8.0); NEUTROPHILS # 5.7 10^3/uL (1.5-8.5); NEUTROPHILS % 78.1 % (36.0-66.0); PLATELET COUNT, AUTOMATED 221 10^3/uL (150-450); RED BLOOD COUNT 2.99 10^6/uL (4.00-5.40); WHITE BLOOD COUNT 7.3 10^3/uL (4.0-10.0)
[2024-06-19 05:18] LABS: ALBUMIN 2.4 G/DL (3.2-5.2); ALKALINE PHOSPHATASE 60 U/L (35-104); ALT/SGPT 39 U/L (7.0-40); AST/SGOT 17 U/L (<34); BILIRUBIN,TOTAL 0.3 MG/DL (0.3-1.2); BLOOD UREA NITROGEN 16 MG/DL (9-23); CALCIUM LEVEL 7.8 MG/DL (8.3-10.6); CARBON DIOXIDE LEVEL > 40.0 MMOL/L (20-31); CHLORIDE LEVEL 94 MMOL/L (98-107); CREATININE FOR GFR 0.39 MG/DL (0.55-1.30); GLOMERULAR FILTRATION RATE > 60.0 (>45); GLUCOSE, FASTING 80 MG/DL (74-106); POTASSIUM SERUM 4.3 MMOL/L (3.5-5.1); SODIUM LEVEL 140 MMOL/L (136-145); TOTAL PROTEIN 5.2 G/DL (5.7-8.2)
[2024-06-19] MEDS: dexAMETHasone 4 MG TAB PO SCH (08:57)
[2024-06-19 09:50] LABS: VENOUS BASE EXCESS 17.9 (-2.0-2.0); VENOUS HCO3 45.6 MMOL/L (23.0-27.0); VENOUS O2 SATURATION 99.3 % (60.0-80.0); VENOUS PARTIAL PRESSURE CO2 76.4 mmHg (38.0-50.0); VENOUS PARTIAL PRESSURE O2 144.7 mmHg (30.0-50.0); VENOUS PH 7.394 UNITS (7.330-7.430); VENOUS STANDARD HCO3 41.9 MMOL/L
[2024-06-19] MEDS: LEVALBUTEROL 1.25MG 0.5ML CONCENTRATE NEB INH SCH (19:01)
[2024-06-20] VITALS (10 sets, daily range): BP systolic 126–152; BP diastolic 69–90; TEMP 97.5–98.8; O2SAT 95–100
[2024-06-20 04:56] LABS: BASO % 0.1 % (0.0-1.0); EOS # 0.1 10^3/uL (0.0-0.5); EOS % 1.2 % (0.0-3.0); HEMATOCRIT 30.1 % (36.0-47.0); HEMOGLOBIN 8.6 g/dl (12.0-15.5); LYMPH # 1.6 10^3/uL (1.5-5.0); LYMPH % 18.1 % (24.0-44.0); MEAN CORPUSCULAR HEMOGLOBIN 26.8 pg (27.0-33.0); MEAN CORPUSCULAR HGB CONC 28.6 g/dl (32.0-36.5); MEAN CORPUSCULAR VOLUME 93.8 fl (80.0-96.0); MONO # 0.7 10^3/uL (0.0-0.8); MONO % 7.3 % (2.0-8.0); NEUTROPHILS # 6.5 10^3/uL (1.5-8.5); NEUTROPHILS % 72.7 % (36.0-66.0); PLATELET COUNT, AUTOMATED 302 10^3/uL (150-450); RED BLOOD COUNT 3.21 10^6/uL (4.00-5.40); WHITE BLOOD COUNT 8.9 10^3/uL (4.0-10.0)
[2024-06-20] MEDS: PANTOPRAZOLE 40MG TAB (PROTONIX) PO SCH (19:57)
[2024-06-21] VITALS (7 sets, daily range): BP systolic 97–154; BP diastolic 56–82; TEMP 98–99.3; O2SAT 88–97
[2024-06-21 04:51] LABS: BASO % 0.1 % (0.0-1.0); EOS # 0.2 10^3/uL (0.0-0.5); EOS % 1.8 % (0.0-3.0); HEMATOCRIT 28.1 % (36.0-47.0); HEMOGLOBIN 8.1 g/dl (12.0-15.5); LYMPH # 1.7 10^3/uL (1.5-5.0); LYMPH % 20.7 % (24.0-44.0); MEAN CORPUSCULAR HEMOGLOBIN 26.4 pg (27.0-33.0); MEAN CORPUSCULAR HGB CONC 28.8 g/dl (32.0-36.5); MEAN CORPUSCULAR VOLUME 91.5 fl (80.0-96.0); MONO # 0.6 10^3/uL (0.0-0.8); MONO % 7.7 % (2.0-8.0); NEUTROPHILS # 5.7 10^3/uL (1.5-8.5); NEUTROPHILS % 68.9 % (36.0-66.0); PLATELET COUNT, AUTOMATED 355 10^3/uL (150-450); RED BLOOD COUNT 3.07 10^6/uL (4.00-5.40); WHITE BLOOD COUNT 8.3 10^3/uL (4.0-10.0)
[2024-06-21 04:59] LABS: IRON (FE) 32 UG/DL (50-170); PERCENT SATURATION 9.2 % (13.2-45.0); TOTAL IRON BINDING CAPACITY 347 UG/DL (250-425)
[2024-06-21 05:03] LABS: BLOOD UREA NITROGEN 12 MG/DL (9-23); CALCIUM LEVEL 7.8 MG/DL (8.3-10.6); CARBON DIOXIDE LEVEL > 40.0 MMOL/L (20-31); CHLORIDE LEVEL 94 MMOL/L (98-107); CHOLESTEROL LEVEL 200 MG/DL (<200); CHOLESTEROL RISK RATIO 3.55 (<5); CREATININE FOR GFR 0.39 MG/DL (0.55-1.30); GLOMERULAR FILTRATION RATE > 60.0 (>45); GLUCOSE, FASTING 87 MG/DL (74-106); HDL CHOLESTEROL 56.2 MG/DL (>40); LDL CHOLESTEROL 116.6 MG/DL (<100); NON-HDL-C 143.8 MG/DL; POTASSIUM SERUM 4.3 MMOL/L (3.5-5.1); SODIUM LEVEL 140 MMOL/L (136-145); TRIGLYCERIDES LEVEL 136 MG/DL (<150)
[2024-06-21 05:05] LABS: HEMOGLOBIN A1c 5.1 % (4.0-6.0)
[2024-06-21] MEDS: NICOTINE 14 MG/24 HR TRANSDERMAL TD SCH (09:00)
[2024-06-21] MEDS: ACETAMINOPHEN *IV* 1,000 MG in IV 1 EA IV ONE (14:28)
[2024-06-21] MEDS: KETOROLAC 30 MG/ML 1ML VIAL IV ONE (14:28)
[2024-06-21 17:04] LABS: CLOSTRIDIUM DIFFICILE PCR NEGATIVE (NEGATIVE)
[2024-06-21] MEDS: LOPERAMIDE 2 MG CAPLET PO PRN (18:28)
[2024-06-22] VITALS (7 sets, daily range): BP systolic 113–163; BP diastolic 61–89; TEMP 97.9–98.4; O2SAT 88–99
[2024-06-22] MEDS: guaiFENesin ER TABLET 600 MG TAB PO SCH (20:46)
[2024-06-23 04:00] VITALS: BP 132/81; TEMP 98.6; O2SAT 96
[2024-06-23 08:32] VITALS: BP 146/78; TEMP 98.4; O2SAT 94
[2024-06-23] MEDS: ACETAMINOPHEN 500 MG TAB PO PRN (09:25)
[2024-06-23] MEDS ORDERED: FUROSEMIDE 40 MG TAB PO PRN (13:50)
[2024-06-23 15:21] VITALS: BP 137/65; TEMP 98.7; O2SAT 96
[2024-06-23 19:07] VITALS: O2SAT 99
[2024-06-23 20:00] VITALS: BP 124/64; TEMP 98; O2SAT 96
[2024-06-23 22:05] VITALS: BP 118/67; TEMP 98.1; O2SAT 95
[2024-06-24] VITALS (7 sets, daily range): BP systolic 106–127; BP diastolic 62–68; TEMP 98.4–98.8; O2SAT 93–99
[2024-06-24 08:09] LABS: HEMATOCRIT 28.3 % (36.0-47.0); MEAN CORPUSCULAR HEMOGLOBIN 26.6 pg (27.0-33.0); MEAN CORPUSCULAR HGB CONC 28.3 g/dl (32.0-36.5); PLATELET COUNT, AUTOMATED 483 10^3/uL (150-450); RED BLOOD COUNT 3.01 10^6/uL (4.00-5.40); WHITE BLOOD COUNT 18.8 10^3/uL (4.0-10.0)
[2024-06-24 08:48] LABS: BLOOD UREA NITROGEN 18 MG/DL (9-23); CARBON DIOXIDE LEVEL > 40.0 MMOL/L (20-31); CHLORIDE LEVEL 94 MMOL/L (98-107); CREATININE FOR GFR 0.35 MG/DL (0.55-1.30); FERRITIN 23.5 NG/ML (7.3-270.7); FOLATE 5.96 NG/ML (>5.4); GLOMERULAR FILTRATION RATE > 60.0 (>45); GLUCOSE, FASTING 81 MG/DL (74-106); POTASSIUM SERUM 4.5 MMOL/L (3.5-5.1); SODIUM LEVEL 136 MMOL/L (136-145); VITAMIN B12 LEVEL 610 PG/ML (211-911)
[2024-06-24] MEDS ORDERED: COMBIVENT RESPIMAT 100-20MCG INHALER 4GM INH PRN (09:25)
[2024-06-24 09:40] LABS: ERYTHROCYTE SEDIMENTATION RATE 10 mm/hr (0-30)
[2024-06-24 09:45] LABS: C REACTIVE PROTEIN QUANTITATIV < 0.50 MG/DL (<1.0)
[2024-06-24 09:57] LABS: PROCALCITONIN 0.06 ng/ml
[2024-06-24] MEDS: PANTOPRAZOLE 40MG TAB (PROTONIX) PO SCH (11:16)
[2024-06-24] MEDS: FERRIC CARBOXYMALTOSE INJ 750 MG, VIAL MATE ADAPTER 1 EACH in NS 100 ML IV ONE (11:17)
[2024-06-25 04:00] VITALS: BP 146/83; TEMP 98.1; O2SAT 94
[2024-06-25] MEDS: TIOTROPIUM INHALER/CAPSULE (SPIRIVA) INH SCH (08:22)
[2024-06-25 12:00] VITALS: BP 99/58; TEMP 99; O2SAT 95
[2024-06-25 12:39] VITALS: BP 110/48; TEMP 99.2
[2024-06-25 15:40] VITALS: TEMP 98.5
[2024-06-25 20:53] VITALS: BP 90/50; TEMP 97.5; O2SAT 95
[2024-06-25 21:45] VITALS: BP 98/50; TEMP 98.1; O2SAT 96
[2024-06-26 04:19] VITALS: BP 122/60; TEMP 98.1; O2SAT 96
[2024-06-26 12:00] VITALS: BP 123/69; TEMP 98.6; O2SAT 97
[2024-06-26 20:38] VITALS: BP 118/56; TEMP 99; O2SAT 95
[2024-06-27 04:22] VITALS: BP 108/72; TEMP 97.9; O2SAT 98
== END 2024-06-27 21:13 | disposition home health service (06) | DRG 133 ==
LOC: M ED 10:39 → M ED INP 15:43 → M ICU 16:30 → M MSPAV 06-23 22:02
PROVIDERS: ADMIT Internal Medicine Pulmonary Disease; ATTEND Student in an Organized Health Care Education/Training Program
PROC: 3E0333Z Introduction of Anti-inflammatory into Peripheral Vein, Percutaneous Approach (ICD-10-PCS; 2024-06-13)
PROC: B246ZZZ Ultrasonography of Right and Left Heart (ICD-10-PCS; 2024-06-13)
PROC: 0BH17EZ Insertion of Endotracheal Airway into Trachea, Via Natural or Artificial Opening (ICD-10-PCS; 2024-06-13)
PROC: 5A1945Z Respiratory Ventilation, 24-96 Consecutive Hours (ICD-10-PCS; principal; 2024-06-14)
PROC: 30233N1 Transfusion of Nonautologous Red Blood Cells into Peripheral Vein, Percutaneous Approach (ICD-10-PCS; 2024-06-14)
DX: J96.21 Acute and chronic respiratory failure with hypoxia (principal); J12.82 Pneumonia due to coronavirus disease 2019; G93.41 Metabolic encephalopathy; G92.9 Unspecified toxic encephalopathy; I50.23 Acute on chronic systolic (congestive) heart failure; J44.0 Chronic obstructive pulmonary disease with (acute) lower respiratory infection; I24.89 Other forms of acute ischemic heart disease; E83.51 Hypocalcemia; U07.1 COVID-19; J44.1 Chronic obstructive pulmonary disease with (acute) exacerbation; E87.29 Other acidosis; I27.20 Pulmonary hypertension, unspecified; Z99.81 Dependence on supplemental oxygen; I27.81 Cor pulmonale (chronic); I11.0 Hypertensive heart disease with heart failure; E87.5 Hyperkalemia; E87.1 Hypo-osmolality and hyponatremia; D50.9 Iron deficiency anemia, unspecified; K21.9 Gastro-esophageal reflux disease without esophagitis; F32.A Depression, unspecified; F17.210 Nicotine dependence, cigarettes, uncomplicated; I73.9 Peripheral vascular disease, unspecified; F12.920 Cannabis use, unspecified with intoxication, uncomplicated; Z79.82 Long term (current) use of aspirin; Z79.899 Other long term (current) drug therapy; Z88.1 Allergy status to other antibiotic agents; Z88.8 Allergy status to other drugs, medicaments and biological substances; Z91.048 Other nonmedicinal substance allergy status; Z86.718 Personal history of other venous thrombosis and embolism; Z71.6 Tobacco abuse counseling; I25.10 Atherosclerotic heart disease of native coronary artery without angina pectoris; G25.81 Restless legs syndrome; K29.70 Gastritis, unspecified, without bleeding; J96.22 Acute and chronic respiratory failure with hypercapnia

== ENCOUNTER 2024-08-14 22:31 | Inpatient (IN) | payer MEDICARE, OTHER ==
[~2024-08-14] VITALS: Ht 152.4 cm; Wt 43.4 kg
[~2024-08-14 22:31] MED LIST changes: +ROPI5TAB19 PO
[2024-08-14] MEDS: IPRATROPIUM 0.5MG/ALBUTEROL 2.5MG INH SOL UD 3ML NEB PRN (23:06)
[2024-08-14 23:07] LABS: VENOUS BASE EXCESS 10.4 (-2.0-2.0); VENOUS HCO3 39.1 MMOL/L (23.0-27.0); VENOUS O2 SATURATION 97.3 % (60.0-80.0); VENOUS PARTIAL PRESSURE CO2 74.5 mmHg (38.0-50.0); VENOUS PARTIAL PRESSURE O2 99.7 mmHg (30.0-50.0); VENOUS PH 7.338 UNITS (7.330-7.430); VENOUS STANDARD HCO3 34.2 MMOL/L; VENOUS TOTAL CO2 41.4 MMOL/L (24.0-28.0)
[2024-08-14 23:10] LABS: BASO % 0.4 % (0.0-1.0); EOS % 0.5 % (0.0-3.0); HEMATOCRIT 38.3 % (36.0-47.0); HEMOGLOBIN 11.8 g/dl (12.0-15.5); LYMPH # 1.3 10^3/uL (1.5-5.0); LYMPH % 15.7 % (24.0-44.0); MEAN CORPUSCULAR HEMOGLOBIN 30.2 pg (27.0-33.0); MEAN CORPUSCULAR HGB CONC 30.8 g/dl (32.0-36.5); MONO # 0.5 10^3/uL (0.0-0.8); NEUTROPHILS # 6.5 10^3/uL (1.5-8.5); NEUTROPHILS % 77.2 % (36.0-66.0); PLATELET COUNT, AUTOMATED 219 10^3/uL (150-450); RED BLOOD COUNT 3.91 10^6/uL (4.00-5.40); WHITE BLOOD COUNT 8.4 10^3/uL (4.0-10.0)
[2024-08-14 23:35] LABS: CK-MB VALUE MASS 1.3 NG/ML (<3.6)
[2024-08-14 23:40] LABS: ALKALINE PHOSPHATASE 92 U/L (35-104); ALT/SGPT 13 U/L (7.0-40); AST/SGOT 15 U/L (<34); BILIRUBIN,DIRECT < 0.1 MG/DL (<0.4); BILIRUBIN,TOTAL 0.2 MG/DL (0.3-1.2); BLOOD UREA NITROGEN 7 MG/DL (9-23); CALCIUM LEVEL 8.2 MG/DL (8.3-10.6); CARBON DIOXIDE LEVEL 40 MMOL/L (20-31); CHLORIDE LEVEL 92 MMOL/L (98-107); CPK CREATINE PHOSPHOKINASE 31 U/L (34-145); CREATININE FOR GFR 0.52 MG/DL (0.55-1.30); GLOMERULAR FILTRATION RATE > 60.0 (>45); GLUCOSE, FASTING 107 MG/DL (74-106); MB/CK RELATIVE INDEX 4.19 (< OR =4); SODIUM LEVEL 138 MMOL/L (136-145); TOTAL PROTEIN 6.4 G/DL (5.7-8.2)
[2024-08-15] VITALS (15 sets, daily range): BP systolic 112–159; BP diastolic 71–89; TEMP 97.9–98.4; O2SAT 85–97
[2024-08-15] MEDS: dexAMETHasone 20MG/5ML VIAL IV ONE (01:44)
[2024-08-15] MEDS ORDERED: IPRATROPIUM 0.5MG/ALBUTEROL 2.5MG INH SOL UD 3ML NEB ONE (03:10)
[2024-08-15] MEDS ORDERED: HOME MED LIST COMPLETE! XX SCH (05:30)
[2024-08-15] MEDS ORDERED: MOM 30ML SUSPENSION UDC PO PRN (05:45)
[2024-08-15] MEDS ORDERED: SYMBICORT 160/4.5MCG INHALER 6GM INH SCH (08:00)
[2024-08-15] MEDS: TIOTROPIUM BROM 2.5MCG/ACTUATION 4GM INH IH SCH (08:00)
[2024-08-15] MEDS: methylPREDNISolone 40MG 1ML VIAL IV SCH (08:34)
[2024-08-15] MEDS: FUROSEMIDE 40MG/4ML VIAL IV ONE (08:34)
[2024-08-15] MEDS: ENOXAPARIN 40MG/0.4ML SYRINGE (J1650 PER 10MG) SC SCH (08:35)
[2024-08-15] MEDS: BUDESONIDE 0.5 MG/2 ML INHALATION SUSPENSION NEB SCH (08:38)
[2024-08-15] MEDS: IPRATROPIUM 0.5MG/ALBUTEROL 2.5MG INH SOL UD 3ML NEB SCH (08:38)
[2024-08-15] MEDS: KCL 10MEQ/100ML SWI (KRUN) 10 MEQ in IV 1 EA IV SCH (09:00)
[2024-08-15] MEDS ORDERED: ADVAIR HFA 230/21MCG INHALER INH SCH (09:00)
[2024-08-15] MEDS ORDERED: predniSONE 20 MG TAB PO SCH ×2 (09:00)
[2024-08-15] MEDS: PANTOPRAZOLE 40MG TAB (PROTONIX) PO SCH (09:00)
[2024-08-15] MEDS: POTASSIUM CHLORIDE 10% LIQ 20MEQ/15ML UDC PO ONE (10:20)
[2024-08-15 10:26] LABS: VENOUS HCO3 43.5 MMOL/L (23.0-27.0); VENOUS O2 SATURATION 99.5 % (60.0-80.0); VENOUS PARTIAL PRESSURE CO2 66.5 mmHg (38.0-50.0); VENOUS PARTIAL PRESSURE O2 168.8 mmHg (30.0-50.0); VENOUS PH 7.434 UNITS (7.330-7.430); VENOUS STANDARD HCO3 40.1 MMOL/L; VENOUS TOTAL CO2 45.6 MMOL/L (24.0-28.0)
[2024-08-15 12:07] LABS: ALBUMIN 3.1 G/DL (3.2-5.2); BLOOD UREA NITROGEN 10 MG/DL (9-23); CALCIUM LEVEL 7.9 MG/DL (8.3-10.6); CARBON DIOXIDE LEVEL > 40.0 MMOL/L (20-31); CHLORIDE LEVEL 92 MMOL/L (98-107); CREATININE FOR GFR 0.38 MG/DL (0.55-1.30); GLOMERULAR FILTRATION RATE > 60.0 (>45); GLUCOSE, FASTING 185 MG/DL (74-106); PHOSPHORUS LEVEL 3.2 MG/DL (2.4-5.1); POTASSIUM SERUM 4.5 MMOL/L (3.5-5.1); SODIUM LEVEL 140 MMOL/L (136-145)
[2024-08-15 13:00] LABS: C REACTIVE PROTEIN QUANTITATIV 1.97 MG/DL (<1.0)
[2024-08-15 13:12] LABS: PROCALCITONIN 0.08 ng/ml
[2024-08-15] MEDS ORDERED: FUROSEMIDE 40 MG TAB PO PRN (13:20)
[2024-08-15] MEDS ORDERED: ISOVUE-370 76% 100ML VIAL As Ordered ONE (13:45)
[2024-08-15 13:47] LABS: CPK CREATINE PHOSPHOKINASE < 15 U/L (34-145)
[2024-08-15] MEDS: FUROSEMIDE 40 MG TAB PO SCH (17:22)
[2024-08-15] MEDS: SUCRALFATE SUSP 1GM/10ML UD PO SCH (17:23)
[2024-08-15] MEDS: AZITHROMYCIN 250MG TABLET PO SCH (17:23)
[2024-08-15] MEDS: SODIUM CHLORIDE HYPERTONIC 3% 4ML NEB SOL INH SCH (19:06)
[2024-08-15] MEDS: ADVAIR HFA 230/21MCG INHALER INH SCH (19:06)
[2024-08-15] MEDS: rOPINIRole 0.25 MG TAB(REQUIP) PO SCH (20:07)
[2024-08-15] MEDS: SERTRALINE 100 MG TAB PO SCH (20:08)
[2024-08-15] MEDS: PANTOPRAZOLE 40MG VIAL IV SCH (20:08)
[2024-08-16] VITALS (9 sets, daily range): BP systolic 112–146; BP diastolic 56–85; TEMP 97.2–98.1; O2SAT 92–98
[2024-08-16] MEDS: guaiFENesin ER TABLET 600 MG TAB PO ONE (00:41)
[2024-08-16 05:01] LABS: BASO % 0.2 % (0.0-1.0); HEMATOCRIT 37.2 % (36.0-47.0); HEMOGLOBIN 11.3 g/dl (12.0-15.5); LYMPH # 0.3 10^3/uL (1.5-5.0); LYMPH % 5.7 % (24.0-44.0); MEAN CORPUSCULAR HEMOGLOBIN 30.1 pg (27.0-33.0); MEAN CORPUSCULAR HGB CONC 30.4 g/dl (32.0-36.5); MEAN CORPUSCULAR VOLUME 99.2 fl (80.0-96.0); MONO # 0.1 10^3/uL (0.0-0.8); MONO % 1.8 % (2.0-8.0); NEUTROPHILS # 5.5 10^3/uL (1.5-8.5); NEUTROPHILS % 92.1 % (36.0-66.0); PLATELET COUNT, AUTOMATED 211 10^3/uL (150-450); RED BLOOD COUNT 3.75 10^6/uL (4.00-5.40)
[2024-08-16 05:37] LABS: ALBUMIN 3.1 G/DL (3.2-5.2); ALKALINE PHOSPHATASE 82 U/L (35-104); ALT/SGPT 10 U/L (7.0-40); AST/SGOT 12 U/L (<34); BILIRUBIN,TOTAL 0.3 MG/DL (0.3-1.2); BLOOD UREA NITROGEN 14 MG/DL (9-23); CALCIUM LEVEL 7.9 MG/DL (8.3-10.6); CARBON DIOXIDE LEVEL > 40.0 MMOL/L (20-31); CHLORIDE LEVEL 91 MMOL/L (98-107); GLOMERULAR FILTRATION RATE > 60.0 (>45); GLUCOSE, FASTING 138 MG/DL (74-106); MAGNESIUM LEVEL 1.2 MG/DL (1.8-2.4); POTASSIUM SERUM 3.7 MMOL/L (3.5-5.1); SODIUM LEVEL 138 MMOL/L (136-145); TOTAL PROTEIN 6.3 G/DL (5.7-8.2)
[2024-08-16 06:05] LABS: ABG BASE EXCESS 6.8 (-2.0-2.0); ABG HCO3 33.1 MMOL/L (22.0-26.0); ABG O2 SATURATION 97.1 % (95.0-99.0); ABG PARTIAL PRESSURE CO2 55.6 mmHg (35.0-45.0); ABG PARTIAL PRESSURE O2 98.9 mmHg (75.0-100.0); ABG STANDARD HCO3 30.7 MMOL/L. (22.0-26.0); ABG TOTAL CO2 34.8 MMOL/L (23.0-31.0); ABG pH (ARTERIAL) 7.393 UNITS (7.350-7.450)
[2024-08-16] MEDS: MAG SULF 1GM/100ML (MAG RUN) 1 GM in IV 1 EA IV SCH (06:09)
[2024-08-16] MEDS: guaiFENesin 200 MG TAB PO SCH (12:16)
[2024-08-16] MEDS: IPRATROPIUM 0.5MG/ALBUTEROL 2.5MG INH SOL UD 3ML NEB PRN (18:11)
[2024-08-16] MEDS: ACETAMINOPHEN 325 MG TAB PO PRN (20:48)
[2024-08-16] MEDS: MORPHINE 10MG/0.5ML ORAL CONCENTRATE SOLUTION U/D SL PRN (20:59)
[2024-08-17] VITALS (8 sets, daily range): BP systolic 108–135; BP diastolic 62–78; TEMP 97.9–98.7; O2SAT 92–97
[2024-08-17 05:16] LABS: BASO % 0.1 % (0.0-1.0); HEMATOCRIT 36.9 % (36.0-47.0); HEMOGLOBIN 10.8 g/dl (12.0-15.5); LYMPH # 0.9 10^3/uL (1.5-5.0); LYMPH % 10.2 % (24.0-44.0); MEAN CORPUSCULAR HEMOGLOBIN 29.4 pg (27.0-33.0); MEAN CORPUSCULAR HGB CONC 29.3 g/dl (32.0-36.5); MEAN CORPUSCULAR VOLUME 100.5 fl (80.0-96.0); MONO # 0.5 10^3/uL (0.0-0.8); NEUTROPHILS # 7.3 10^3/uL (1.5-8.5); NEUTROPHILS % 83.2 % (36.0-66.0); PLATELET COUNT, AUTOMATED 235 10^3/uL (150-450); RED BLOOD COUNT 3.67 10^6/uL (4.00-5.40); WHITE BLOOD COUNT 8.8 10^3/uL (4.0-10.0)
[2024-08-17 06:31] LABS: ALKALINE PHOSPHATASE 79 U/L (35-104); ALT/SGPT 12 U/L (7.0-40); AST/SGOT 13 U/L (<34); BILIRUBIN,TOTAL 0.2 MG/DL (0.3-1.2); BLOOD UREA NITROGEN 18 MG/DL (9-23); CALCIUM LEVEL 8.3 MG/DL (8.3-10.6); CARBON DIOXIDE LEVEL > 40.0 MMOL/L (20-31); CHLORIDE LEVEL 90 MMOL/L (98-107); CREATININE FOR GFR 0.41 MG/DL (0.55-1.30); GLOMERULAR FILTRATION RATE > 60.0 (>45); GLUCOSE, FASTING 84 MG/DL (74-106); MAGNESIUM LEVEL 2.2 MG/DL (1.8-2.4); POTASSIUM SERUM 4.6 MMOL/L (3.5-5.1); SODIUM LEVEL 140 MMOL/L (136-145); TOTAL PROTEIN 6.2 G/DL (5.7-8.2)
[2024-08-17] MEDS: predniSONE 20 MG TAB PO SCH (09:56)
[2024-08-17] MEDS ORDERED: PRED10TA2 PO (15:37)
[2024-08-17] MEDS ORDERED: ALBU8.5H INH (16:14)
== END 2024-08-17 20:10 | disposition home or self-care (01) | DRG 189 ==
LOC: M ED 22:31 → M ED INP 08-15 05:05 → M ICU 08-15 08:18
PROVIDERS: ADMIT Internal Medicine Pulmonary Disease; ATTEND Internal Medicine
DX: J96.21 Acute and chronic respiratory failure with hypoxia (principal); I50.23 Acute on chronic systolic (congestive) heart failure; J44.1 Chronic obstructive pulmonary disease with (acute) exacerbation; I24.89 Other forms of acute ischemic heart disease; I27.20 Pulmonary hypertension, unspecified; J96.22 Acute and chronic respiratory failure with hypercapnia; K21.9 Gastro-esophageal reflux disease without esophagitis; E87.5 Hyperkalemia; I25.10 Atherosclerotic heart disease of native coronary artery without angina pectoris; F17.200 Nicotine dependence, unspecified, uncomplicated; D50.9 Iron deficiency anemia, unspecified; F10.10 Alcohol abuse, uncomplicated; F32.A Depression, unspecified; Z86.718 Personal history of other venous thrombosis and embolism; Z91.148 Patient's other noncompliance with medication regimen for other reason; Z88.8 Allergy status to other drugs, medicaments and biological substances; Z79.899 Other long term (current) drug therapy; Z79.82 Long term (current) use of aspirin; G25.81 Restless legs syndrome

== ENCOUNTER 2024-08-23 21:59 | Inpatient (IN) | payer MEDICARE ==
[~2024-08-23] VITALS: Ht 152.4 cm; Wt 46.8 kg
[2024-08-23 22:35] LABS: HEMATOCRIT 33.5 % (36.0-47.0); HEMOGLOBIN 10.4 g/dl (12.0-15.5); MEAN CORPUSCULAR HEMOGLOBIN 30.1 pg (27.0-33.0); MEAN CORPUSCULAR VOLUME 97.1 fl (80.0-96.0); PLATELET COUNT, AUTOMATED 251 10^3/uL (150-450); RED BLOOD COUNT 3.45 10^6/uL (4.00-5.40); WHITE BLOOD COUNT 17.2 10^3/uL (4.0-10.0)
[2024-08-23 22:50] LABS: ANISOCYTOSIS 1+; HYPOCHROMASIA 1+; LYMPHOCYTES 5 % (16-44); MONOCYTES 1 % (0-5); NEUTROPHILS 89 % (28-66); PLATELET CLUMPS SMALL AMT; PLATELET ESTIMATE NORMAL (NORMAL)
[2024-08-23 23:00] LABS: ALBUMIN 2.8 G/DL (3.2-5.2); ALKALINE PHOSPHATASE 87 U/L (35-104); ALT/SGPT 14 U/L (7.0-40); AST/SGOT 16 U/L (<34); BILIRUBIN,DIRECT 0.1 MG/DL (<0.4); BILIRUBIN,TOTAL 0.5 MG/DL (0.3-1.2); BLOOD UREA NITROGEN 13 MG/DL (9-23); CALCIUM LEVEL 8.9 MG/DL (8.3-10.6); CARBON DIOXIDE LEVEL 36 MMOL/L (20-31); CHLORIDE LEVEL 93 MMOL/L (98-107); CREATININE FOR GFR 0.46 MG/DL (0.55-1.30); GLOMERULAR FILTRATION RATE > 90.0 (>45); GLUCOSE, FASTING 96 MG/DL (74-106); POTASSIUM SERUM 3.9 MMOL/L (3.5-5.1); SODIUM LEVEL 136 MMOL/L (136-145); TOTAL PROTEIN 5.9 G/DL (5.7-8.2)
[2024-08-23] MEDS: IPRATROPIUM 0.5MG/ALBUTEROL 2.5MG INH SOL UD 3ML NEB ONE ×2 (23:04)
[2024-08-23] MEDS: NS (Normal Saline) 0.9% 1,000 ML IV ONE (23:06)
[2024-08-23] MEDS: ONDANSETRON 4MG 2ML VIAL IV ONE (23:06)
[2024-08-23] MEDS ORDERED: PIPERACILLIN/TAZOBACTAM SOD 4.5 GM in DEXTROSE 5% (D5W) ADV/MINI-BAG 50 ML IV ONE (23:15)
[2024-08-23 23:31] LABS: CK-MB VALUE MASS 1.6 NG/ML (<3.6)
[2024-08-23 23:33] LABS: CPK CREATINE PHOSPHOKINASE 95 U/L (34-145); MB/CK RELATIVE INDEX 1.68 (< OR =4)
[2024-08-23] MEDS: LevoFLOXacin IV 750 MG in IV 1 EA IV ONE (23:36)
[2024-08-24] VITALS (7 sets, daily range): BP systolic 104–127; BP diastolic 56–80; TEMP 97.7–98.6; O2SAT 93–100
[2024-08-24 00:17] LABS: ABG BASE EXCESS 4.8 (-2.0-2.0); ABG HCO3 32.7 MMOL/L (22.0-26.0); ABG O2 SATURATION 98.3 % (95.0-99.0); ABG PARTIAL PRESSURE O2 149.3 mmHg (75.0-100.0); ABG STANDARD HCO3 28.8 MMOL/L. (22.0-26.0); ABG TOTAL CO2 34.8 MMOL/L (23.0-31.0); ABG pH (ARTERIAL) 7.301 UNITS (7.350-7.450)
[2024-08-24 00:22] LABS: ABG PARTIAL PRESSURE CO2 67.8 mmHg (35.0-45.0)
[2024-08-24] MEDS ORDERED: LEVALBUTEROL 1.25 MG 0.5ML CONCENTRATE NEB INH PRN (01:55)
[2024-08-24] MEDS ORDERED: NICOTINE 14 MG/24 HR TRANSDERMAL TD PRN (01:55)
[2024-08-24 03:21] LABS: ABG BASE EXCESS 9.6 (-2.0-2.0); ABG HCO3 37.2 MMOL/L (22.0-26.0); ABG O2 SATURATION 97.4 % (95.0-99.0); ABG PARTIAL PRESSURE O2 105.8 mmHg (75.0-100.0); ABG STANDARD HCO3 33.4 MMOL/L. (22.0-26.0); ABG TOTAL CO2 39.4 MMOL/L (23.0-31.0); ABG pH (ARTERIAL) 7.345 UNITS (7.350-7.450)
[2024-08-24 03:25] LABS: ABG PARTIAL PRESSURE CO2 69.8 mmHg (35.0-45.0)
[2024-08-24] MEDS: methylPREDNISolone 125MG 2ML VIAL IV SCH (03:45)
[2024-08-24 04:04] LABS: MAGNESIUM LEVEL 1.6 MG/DL (1.8-2.4)
[2024-08-24 04:13] LABS: PROCALCITONIN 9.51 ng/ml
[2024-08-24] MEDS: MAG SULF 1GM/100ML (MAG RUN) 1 GM in IV 1 EA IV ONE (05:26)
[2024-08-24 06:08] LABS: HEMATOCRIT 30.1 % (36.0-47.0); HEMOGLOBIN 9.1 g/dl (12.0-15.5); MEAN CORPUSCULAR HEMOGLOBIN 30.2 pg (27.0-33.0); MEAN CORPUSCULAR HGB CONC 30.2 g/dl (32.0-36.5); PLATELET COUNT, AUTOMATED 221 10^3/uL (150-450); RED BLOOD COUNT 3.01 10^6/uL (4.00-5.40); WHITE BLOOD COUNT 14.7 10^3/uL (4.0-10.0)
[2024-08-24 06:17] LABS: INR 0.97; PROTHROMBIN TIME 13.2 SECONDS (12.5-14.5)
[2024-08-24 06:31] LABS: ALBUMIN 2.5 G/DL (3.2-5.2); ALKALINE PHOSPHATASE 73 U/L (35-104); ALT/SGPT 14 U/L (7.0-40); AST/SGOT 13 U/L (<34); BILIRUBIN,TOTAL 0.4 MG/DL (0.3-1.2); BLOOD UREA NITROGEN 16 MG/DL (9-23); CALCIUM LEVEL 8.1 MG/DL (8.3-10.6); CARBON DIOXIDE LEVEL 36 MMOL/L (20-31); CHLORIDE LEVEL 94 MMOL/L (98-107); CREATININE FOR GFR 0.45 MG/DL (0.55-1.30); GLOMERULAR FILTRATION RATE > 90.0 (>45); GLUCOSE, FASTING 148 MG/DL (74-106); MAGNESIUM LEVEL 1.9 MG/DL (1.8-2.4); POTASSIUM SERUM 4.6 MMOL/L (3.5-5.1); SODIUM LEVEL 135 MMOL/L (136-145); TOTAL PROTEIN 5.2 G/DL (5.7-8.2)
[2024-08-24] MEDS: IPRATROPIUM 0.5MG/ALBUTEROL 2.5MG INH SOL UD 3ML NEB SCH ×2 (08:58→11:30)
[2024-08-24] MEDS ORDERED: PRED10TA2 PO (09:53)
[2024-08-24] MEDS ORDERED: VENTAER INH (09:53)
[2024-08-24] MEDS ORDERED: HOME MED LIST COMPLETE! XX SCH (09:55)
[2024-08-24] MEDS: PANTOPRAZOLE 40MG VIAL IV SCH (10:26)
[2024-08-24] MEDS: ENOXAPARIN 40MG/0.4ML SYRINGE (J1650 PER 10MG) SC SCH (10:26)
[2024-08-24] MEDS: AZITHROMYCIN 250MG TABLET PO ONE (10:31)
[2024-08-24] MEDS: ACETAMINOPHEN 325 MG TAB PO PRN (13:32)
[2024-08-24] MEDS: SUCRALFATE SUSP 1GM/10ML UD PO SCH (14:32)
[2024-08-24] MEDS: MORPHINE SULFATE ORAL SOLN 10 MG/5 ML UD PO PRN (14:33)
[2024-08-24] MEDS ORDERED: LevoFLOXacin 750 MG TABLET PO SCH (21:00)
[2024-08-24] MEDS ORDERED: LevoFLOXacin IV 750 MG in IV 1 EA IV SCH (21:00)
[2024-08-25] VITALS (9 sets, daily range): BP systolic 112–159; BP diastolic 64–88; TEMP 97.2–98.6; O2SAT 92–100
[2024-08-25 05:15] LABS: HEMATOCRIT 29.6 % (36.0-47.0); HEMOGLOBIN 8.4 g/dl (12.0-15.5); MEAN CORPUSCULAR HGB CONC 28.4 g/dl (32.0-36.5); MEAN CORPUSCULAR VOLUME 102.1 fl (80.0-96.0); PLATELET COUNT, AUTOMATED 227 10^3/uL (150-450); WHITE BLOOD COUNT 11.6 10^3/uL (4.0-10.0)
[2024-08-25 05:37] LABS: ABG BASE EXCESS 7.5 (-2.0-2.0); ABG HCO3 33.8 MMOL/L (22.0-26.0); ABG PARTIAL PRESSURE CO2 58.3 mmHg (35.0-45.0); ABG PARTIAL PRESSURE O2 78.1 mmHg (75.0-100.0); ABG STANDARD HCO3 31.3 MMOL/L. (22.0-26.0); ABG TOTAL CO2 35.6 MMOL/L (23.0-31.0); ABG pH (ARTERIAL) 7.381 UNITS (7.350-7.450)
[2024-08-25 05:42] LABS: ALBUMIN 2.7 G/DL (3.2-5.2); ALKALINE PHOSPHATASE 76 U/L (35-104); ALT/SGPT 14 U/L (7.0-40); AST/SGOT 10 U/L (<34); BILIRUBIN,TOTAL 0.2 MG/DL (0.3-1.2); BLOOD UREA NITROGEN 11 MG/DL (9-23); CALCIUM LEVEL 8.4 MG/DL (8.3-10.6); CARBON DIOXIDE LEVEL 36 MMOL/L (20-31); CHLORIDE LEVEL 92 MMOL/L (98-107); CREATININE FOR GFR 0.39 MG/DL (0.55-1.30); GLOMERULAR FILTRATION RATE > 90.0 (>45); GLUCOSE, FASTING 144 MG/DL (74-106); MAGNESIUM LEVEL 1.6 MG/DL (1.8-2.4); POTASSIUM SERUM 4.6 MMOL/L (3.5-5.1); SODIUM LEVEL 132 MMOL/L (136-145); TOTAL PROTEIN 5.6 G/DL (5.7-8.2)
[2024-08-25] MEDS: MORPHINE 2 MG/ML 1ML VIAL IV ONE (06:45)
[2024-08-25] MEDS: AZITHROMYCIN 250MG TABLET PO SCH (10:24)
[2024-08-25] MEDS: ASPIRIN 81MG ENTERIC TABLET PO SCH (10:25)
[2024-08-25] MEDS: MAG SULF 1GM/100ML (MAG RUN) 1 GM in IV 1 EA IV ONE (10:25)
[2024-08-25] MEDS: guaiFENesin ER TABLET 600 MG TAB PO SCH (10:26)
[2024-08-25] MEDS: MAGNESIUM OXIDE 400MG TAB (MAG-OX) PO SCH (10:26)
[2024-08-25] MEDS: SERTRALINE 100 MG TAB PO SCH (21:01)
[2024-08-25] MEDS: rOPINIRole 0.25 MG TAB(REQUIP) PO SCH (21:01)
[2024-08-26 04:38] VITALS: BP 136/73; TEMP 97.8; O2SAT 94
[2024-08-26 07:26] VITALS: BP 133/83; TEMP 97.6; O2SAT 96
[2024-08-26] MEDS: predniSONE 20 MG TAB PO SCH (08:55)
[2024-08-26 10:00] LABS: ALBUMIN 2.8 G/DL (3.2-5.2); ALKALINE PHOSPHATASE 80 U/L (35-104); ALT/SGPT 14 U/L (7.0-40); AST/SGOT 12 U/L (<34); BILIRUBIN,TOTAL 0.2 MG/DL (0.3-1.2); BLOOD UREA NITROGEN 19 MG/DL (9-23); CALCIUM LEVEL 8.7 MG/DL (8.3-10.6); CARBON DIOXIDE LEVEL > 40.0 MMOL/L (20-31); CHLORIDE LEVEL 94 MMOL/L (98-107); CREATININE FOR GFR 0.44 MG/DL (0.55-1.30); GLOMERULAR FILTRATION RATE > 90.0 (>45); GLUCOSE, FASTING 98 MG/DL (74-106); MAGNESIUM LEVEL 1.6 MG/DL (1.8-2.4); SODIUM LEVEL 137 MMOL/L (136-145); TOTAL PROTEIN 5.8 G/DL (5.7-8.2)
[2024-08-26 10:02] LABS: HEMATOCRIT 32.1 % (36.0-47.0); HEMOGLOBIN 9.4 g/dl (12.0-15.5); MEAN CORPUSCULAR HEMOGLOBIN 30.6 pg (27.0-33.0); MEAN CORPUSCULAR HGB CONC 29.3 g/dl (32.0-36.5); MEAN CORPUSCULAR VOLUME 104.6 fl (80.0-96.0); PLATELET COUNT, AUTOMATED 250 10^3/uL (150-450); RED BLOOD COUNT 3.07 10^6/uL (4.00-5.40); WHITE BLOOD COUNT 9.3 10^3/uL (4.0-10.0)
[2024-08-26 10:46] LABS: LYMPHOCYTES 11 % (16-44); MONOCYTES 2 % (0-5); NEUTROPHILS 87 % (28-66)
[2024-08-26 10:47] LABS: HYPOCHROMASIA 2+; PLATELET ESTIMATE NORMAL (NORMAL)
[2024-08-26 10:48] LABS: STOMATOCYTES 1+
[2024-08-26 11:37] VITALS: BP 118/57; TEMP 97.6; O2SAT 97
[2024-08-27 03:24] VITALS: BP 155/76; TEMP 97.4; O2SAT 98
[2024-08-27 06:40] LABS: BASO % 0.1 % (0.0-1.0); HEMATOCRIT 29.2 % (36.0-47.0); HEMOGLOBIN 8.4 g/dl (12.0-15.5); LYMPH # 1.1 10^3/uL (1.5-5.0); LYMPH % 14.2 % (24.0-44.0); MEAN CORPUSCULAR HEMOGLOBIN 29.8 pg (27.0-33.0); MEAN CORPUSCULAR HGB CONC 28.8 g/dl (32.0-36.5); MEAN CORPUSCULAR VOLUME 103.5 fl (80.0-96.0); MONO # 0.6 10^3/uL (0.0-0.8); MONO % 7.8 % (2.0-8.0); NEUTROPHILS # 5.9 10^3/uL (1.5-8.5); NEUTROPHILS % 77.2 % (36.0-66.0); PLATELET COUNT, AUTOMATED 213 10^3/uL (150-450); RED BLOOD COUNT 2.82 10^6/uL (4.00-5.40); WHITE BLOOD COUNT 7.6 10^3/uL (4.0-10.0)
[2024-08-27 07:15] LABS: BLOOD UREA NITROGEN 25 MG/DL (9-23); CALCIUM LEVEL 8.6 MG/DL (8.3-10.6); CARBON DIOXIDE LEVEL > 40.0 MMOL/L (20-31); CHLORIDE LEVEL 93 MMOL/L (98-107); CREATININE FOR GFR 0.45 MG/DL (0.55-1.30); GLOMERULAR FILTRATION RATE > 90.0 (>45); GLUCOSE, FASTING 83 MG/DL (74-106); MAGNESIUM LEVEL 1.7 MG/DL (1.8-2.4); POTASSIUM SERUM 4.7 MMOL/L (3.5-5.1); SODIUM LEVEL 137 MMOL/L (136-145)
[2024-08-27 07:33] VITALS: BP 131/79; TEMP 98.2; O2SAT 93
[2024-08-27] MEDS: predniSONE 10MG TAB PO SCH (08:46)
[2024-08-27] MEDS: MAGNESIUM GLUCONATE 500 MG TAB PO SCH (08:47)
[2024-08-27 19:18] VITALS: BP 137/64; TEMP 98; O2SAT 95
[2024-08-28 07:20] VITALS: BP 156/76; TEMP 97.6; O2SAT 98
[2024-08-28 09:36] LABS: ABG BASE EXCESS 14.3 (-2.0-2.0); ABG HCO3 41.6 MMOL/L (22.0-26.0); ABG PARTIAL PRESSURE O2 107.3 mmHg (75.0-100.0); ABG TOTAL CO2 43.8 MMOL/L (23.0-31.0); ABG pH (ARTERIAL) 7.385 UNITS (7.350-7.450)
[2024-08-28 09:43] LABS: ABG PARTIAL PRESSURE CO2 71.1 mmHg (35.0-45.0)
[2024-08-28] MEDS: MORPHINE SULFATE ORAL SOLN 10 MG/5 ML UD PO PRN (12:23)
[2024-08-28 19:41] VITALS: BP 139/62; TEMP 98.7; O2SAT 94
[2024-08-29 07:26] VITALS: BP 143/66; TEMP 97.9; O2SAT 96
[2024-08-29] MEDS ORDERED: PRED10TA2 PO (12:06)
[2024-08-29] MEDS ORDERED: AZIT-12 PO (12:06)
[2024-08-29] MEDS ORDERED: SUCR1ORA PO (12:06)
[2024-08-29] MEDS ORDERED: MORP1SOL4 PO (12:17)
[2024-08-29] MEDS ORDERED: PRED20TA PO (15:00)
[2024-08-29 20:22] VITALS: BP 129/59; TEMP 98.1; O2SAT 95
[2024-08-30 06:25] LABS: HEMATOCRIT 27.8 % (36.0-47.0); HEMOGLOBIN 8.2 g/dl (12.0-15.5); MEAN CORPUSCULAR HGB CONC 29.5 g/dl (32.0-36.5); MEAN CORPUSCULAR VOLUME 101.8 fl (80.0-96.0); PLATELET COUNT, AUTOMATED 241 10^3/uL (150-450); RED BLOOD COUNT 2.73 10^6/uL (4.00-5.40); WHITE BLOOD COUNT 8.9 10^3/uL (4.0-10.0)
[2024-08-30 07:37] VITALS: BP 133/72; TEMP 96.6; O2SAT 98
== END 2024-08-30 08:55 | disposition home health service (06) | DRG 189 ==
LOC: EDBD 21:59 → M ED 21:59 → M ED INP 08-24 01:54 → M ICU 08-24 03:26 → M PCU 08-25 17:02
PROVIDERS: ADMIT Family Medicine; ATTEND Internal Medicine
DX: J96.21 Acute and chronic respiratory failure with hypoxia (principal); J44.1 Chronic obstructive pulmonary disease with (acute) exacerbation; I50.32 Chronic diastolic (congestive) heart failure; E87.1 Hypo-osmolality and hyponatremia; I24.89 Other forms of acute ischemic heart disease; J96.22 Acute and chronic respiratory failure with hypercapnia; Z66 Do not resuscitate; D50.9 Iron deficiency anemia, unspecified; K21.9 Gastro-esophageal reflux disease without esophagitis; F32.A Depression, unspecified; F17.210 Nicotine dependence, cigarettes, uncomplicated; G89.29 Other chronic pain; I27.20 Pulmonary hypertension, unspecified; E78.5 Hyperlipidemia, unspecified; G25.81 Restless legs syndrome; I25.2 Old myocardial infarction; I73.9 Peripheral vascular disease, unspecified; Z86.718 Personal history of other venous thrombosis and embolism; Z79.82 Long term (current) use of aspirin; Z79.52 Long term (current) use of systemic steroids; Z79.899 Other long term (current) drug therapy; Z88.1 Allergy status to other antibiotic agents; Z88.8 Allergy status to other drugs, medicaments and biological substances; Z91.048 Other nonmedicinal substance allergy status; Z99.81 Dependence on supplemental oxygen

== ENCOUNTER 2024-09-02 18:06 | Inpatient (IN) | payer MEDICARE ==
[~2024-09-02] VITALS: Ht 152.4 cm; Wt 49.0 kg
[~2024-09-02 18:06] MED LIST changes: +MORP1SOL4 PO
[2024-09-02] MEDS: ACETAMINOPHEN 325 MG TAB PO ONE (19:04)
[2024-09-02] MEDS: ALBUTEROL SULFATE 2.5MG/0.5ML INH CONCENTRATE NEB SOLN INH ONE (19:09)
[2024-09-02 19:20] LABS: ABG BASE EXCESS 5.9 (-2.0-2.0); ABG HCO3 31.5 MMOL/L (22.0-26.0); ABG O2 SATURATION 97.8 % (95.0-99.0); ABG PARTIAL PRESSURE CO2 51.6 mmHg (35.0-45.0); ABG PARTIAL PRESSURE O2 137.9 mmHg (75.0-100.0); ABG STANDARD HCO3 29.8 MMOL/L. (22.0-26.0); ABG pH (ARTERIAL) 7.403 UNITS (7.350-7.450)
[2024-09-02 19:23] LABS: BASO % 0.1 % (0.0-1.0); HEMATOCRIT 29.2 % (36.0-47.0); HEMOGLOBIN 8.8 g/dl (12.0-15.5); LYMPH # 0.6 10^3/uL (1.5-5.0); LYMPH % 3.5 % (24.0-44.0); MEAN CORPUSCULAR HEMOGLOBIN 29.4 pg (27.0-33.0); MEAN CORPUSCULAR HGB CONC 30.1 g/dl (32.0-36.5); MEAN CORPUSCULAR VOLUME 97.7 fl (80.0-96.0); MONO # 0.4 10^3/uL (0.0-0.8); MONO % 2.5 % (2.0-8.0); NEUTROPHILS # 16.1 10^3/uL (1.5-8.5); NEUTROPHILS % 93.5 % (36.0-66.0); PLATELET COUNT, AUTOMATED 256 10^3/uL (150-450); RED BLOOD COUNT 2.99 10^6/uL (4.00-5.40); WHITE BLOOD COUNT 17.2 10^3/uL (4.0-10.0)
[2024-09-02] MEDS: IPRATROPIUM 0.5MG/ALBUTEROL 2.5MG INH SOL UD 3ML NEB ONE (19:30)
[2024-09-02 19:40] LABS: CK-MB VALUE MASS 1.7 NG/ML (<3.6)
[2024-09-02 19:43] LABS: ALBUMIN 3.4 G/DL (3.2-5.2); ALKALINE PHOSPHATASE 83 U/L (35-104); ALT/SGPT 18 U/L (7.0-40); AST/SGOT 13 U/L (<34); BILIRUBIN,DIRECT 0.1 MG/DL (<0.4); BILIRUBIN,TOTAL 0.7 MG/DL (0.3-1.2); BLOOD UREA NITROGEN 16 MG/DL (9-23); CALCIUM LEVEL 8.9 MG/DL (8.3-10.6); CARBON DIOXIDE LEVEL 36 MMOL/L (20-31); CHLORIDE LEVEL 95 MMOL/L (98-107); CREATININE FOR GFR 0.46 MG/DL (0.55-1.30); GLOMERULAR FILTRATION RATE > 90.0 (>45); GLUCOSE, FASTING 89 MG/DL (74-106); POTASSIUM SERUM 4.7 MMOL/L (3.5-5.1); SODIUM LEVEL 138 MMOL/L (136-145); TOTAL PROTEIN 6.5 G/DL (5.7-8.2)
[2024-09-02 19:45] LABS: THYROID STIMULATING HORMONE 1.798 uIU/ML (0.55-4.78); THYROXINE (T4) 7.1 UG/DL (4.5-10.9)
[2024-09-02 19:49] LABS: PROCALCITONIN 0.17 ng/ml
[2024-09-02 19:57] LABS: CPK CREATINE PHOSPHOKINASE 26 U/L (34-145); MB/CK RELATIVE INDEX 6.53 (< OR =4)
[2024-09-02 20:55] LABS: CK-MB VALUE MASS 1.5 NG/ML (<3.6)
[2024-09-02 20:57] LABS: MB/CK RELATIVE INDEX 6.52 (< OR =4)
[2024-09-02] MEDS: HEPARIN DRIP 25,000 UNITS in IV 1 EA IV SCH (22:29)
[2024-09-02 23:28] LABS: CK-MB VALUE MASS < 1.0 NG/ML (<3.6); CPK CREATINE PHOSPHOKINASE 39 U/L (34-145); MB/CK RELATIVE INDEX 2.56 (< OR =4)
[2024-09-03] VITALS (15 sets, daily range): BP systolic 78–144; BP diastolic 42–76; PULSE 98; TEMP 97.5–98.9; O2SAT 93–97
[2024-09-03] MEDS: HEPARIN SOD (PORCINE) 5000UNITS/ML 1ML VIAL/SYRINGE IV PRN (04:29)
[2024-09-03] MEDS ORDERED: ISOVUE-370 76% 100ML VIAL As Ordered ONE (05:06)
[2024-09-03] MEDS ORDERED: NITROGLYCERIN 0.4MG SUBL TABLET SL PRN (05:10)
[2024-09-03] MEDS ORDERED: SUCR1ORA PO (05:25)
[2024-09-03] MEDS ORDERED: AZIT-10 PO (05:25)
[2024-09-03] MEDS ORDERED: MORP10SO2 PO (05:25)
[2024-09-03] MEDS ORDERED: PRED20TA PO (05:25)
[2024-09-03] MEDS ORDERED: PRED10TA2 PO (05:25)
[2024-09-03] MEDS ORDERED: HOME MED LIST COMPLETE! XX SCH (05:30)
[2024-09-03] MEDS: rOPINIRole 0.25 MG TAB(REQUIP) PO SCH (05:57)
[2024-09-03] MEDS: methylPREDNISolone 125MG 2ML VIAL IV SCH (06:15)
[2024-09-03] MEDS: FUROSEMIDE 40 MG TAB PO ONE (06:15)
[2024-09-03] MEDS: FAMOTIDINE IV BAG 20 MG in IV 1 EA IV ONE (06:15)
[2024-09-03] MEDS: LevoFLOXacin 750 MG TABLET PO SCH (06:15)
[2024-09-03] MEDS: NS (Normal Saline) 0.9% 1,000 ML IV SCH (06:16)
[2024-09-03] MEDS ORDERED: HEPARIN DRIP 25,000 UNITS in IV 1 EA IV SCH (06:50)
[2024-09-03] MEDS ORDERED: HEPARIN SOD (PORCINE) 5000UNITS/ML 1ML VIAL/SYRINGE IV PRN (06:50)
[2024-09-03] MEDS: ALBUTEROL SULFATE 2.5MG/0.5ML INH CONCENTRATE NEB SOLN NEB SCH (07:15)
[2024-09-03] MEDS: SUCRALFATE SUSP 1GM/10ML UD PO SCH (07:30)
[2024-09-03] MEDS: GLYCOPYRROLATE INJ 0.2 MG/ML 2 ML VIAL NEB SCH (07:55)
[2024-09-03] MEDS: FORMOTEROL FUMARATE 20 MCG/2 ML INHALATION SOLUTION (PERFOROMIST) INH SCH (07:56)
[2024-09-03] MEDS: BUDESONIDE 0.5 MG/2 ML INHALATION SUSPENSION NEB SCH (07:56)
[2024-09-03] MEDS ORDERED: NS 500 ML IV ONE (08:50)
[2024-09-03] MEDS: NS (Normal Saline) 0.9% 1,000 ML IV ONE (08:55)
[2024-09-03] MEDS: MORPHINE SULFATE ORAL SOLN 10 MG/5 ML UD PO PRN (09:06)
[2024-09-03 09:45] LABS: VENOUS BASE EXCESS 8.8 (-2.0-2.0); VENOUS HCO3 34.7 MMOL/L (23.0-27.0); VENOUS O2 SATURATION 96.3 % (60.0-80.0); VENOUS PARTIAL PRESSURE CO2 56.9 mmHg (38.0-50.0); VENOUS PARTIAL PRESSURE O2 85.7 mmHg (30.0-50.0); VENOUS PH 7.403 UNITS (7.330-7.430); VENOUS STANDARD HCO3 32.5 MMOL/L; VENOUS TOTAL CO2 36.4 MMOL/L (24.0-28.0)
[2024-09-03 09:50] LABS: HEMATOCRIT 24.6 % (36.0-47.0); HEMOGLOBIN 7.3 g/dl (12.0-15.5); MEAN CORPUSCULAR HEMOGLOBIN 28.9 pg (27.0-33.0); MEAN CORPUSCULAR HGB CONC 29.7 g/dl (32.0-36.5); MEAN CORPUSCULAR VOLUME 97.2 fl (80.0-96.0); PLATELET COUNT, AUTOMATED 201 10^3/uL (150-450); RED BLOOD COUNT 2.53 10^6/uL (4.00-5.40); WHITE BLOOD COUNT 11.1 10^3/uL (4.0-10.0)
[2024-09-03 10:22] LABS: CK-MB VALUE MASS 1.9 NG/ML (<3.6)
[2024-09-03 10:24] LABS: BLOOD UREA NITROGEN 20 MG/DL (9-23); CARBON DIOXIDE LEVEL 37 MMOL/L (20-31); CHLORIDE LEVEL 97 MMOL/L (98-107); CHOLESTEROL LEVEL 261 MG/DL (<200); CHOLESTEROL RISK RATIO 2.79 (<5); CPK CREATINE PHOSPHOKINASE 47 U/L (34-145); CREATININE FOR GFR 0.46 MG/DL (0.55-1.30); GLOMERULAR FILTRATION RATE > 90.0 (>45); GLUCOSE, FASTING 97 MG/DL (74-106); HDL CHOLESTEROL 93.3 MG/DL (>40); LDL CHOLESTEROL 146.1 MG/DL (<100); MB/CK RELATIVE INDEX 4.04 (< OR =4); NON-HDL-C 167.7 MG/DL; POTASSIUM SERUM 4.4 MMOL/L (3.5-5.1); SODIUM LEVEL 140 MMOL/L (136-145); TRIGLYCERIDES LEVEL 108 MG/DL (<150)
[2024-09-03] MEDS: SERTRALINE 100 MG TAB PO SCH (10:28)
[2024-09-03] MEDS: PANTOPRAZOLE 40MG VIAL IV SCH ×2 (10:28→21:17)
[2024-09-03] MEDS: ASPIRIN 81MG ENTERIC TABLET PO SCH (10:28)
[2024-09-03] MEDS: guaiFENesin ER TABLET 600 MG TAB PO SCH (10:28)
[2024-09-03] MEDS: SENOKOT S TAB PO SCH (10:28)
[2024-09-03] MEDS: methylPREDNISolone 40MG 1ML VIAL IV SCH ×2 (14:58→21:17)
[2024-09-03] MEDS: FUROSEMIDE 20MG/2ML VIAL IV ONE (14:58)
[2024-09-03] MEDS: ACETAMINOPHEN 325 MG TAB PO PRN (16:26)
[2024-09-03 21:11] LABS: HEMATOCRIT 34.8 % (36.0-47.0); MEAN CORPUSCULAR HEMOGLOBIN 29.4 pg (27.0-33.0); MEAN CORPUSCULAR HGB CONC 31.3 g/dl (32.0-36.5); MEAN CORPUSCULAR VOLUME 93.8 fl (80.0-96.0); PLATELET COUNT, AUTOMATED 225 10^3/uL (150-450); RED BLOOD COUNT 3.71 10^6/uL (4.00-5.40); WHITE BLOOD COUNT 14.1 10^3/uL (4.0-10.0)
[2024-09-03 21:34] LABS: HEMOGLOBIN 10.9 g/dl (12.0-15.5)
[2024-09-04] VITALS: BP 135/71; TEMP 97.6; O2SAT 96
[2024-09-04 04:00] VITALS: BP 162/82; TEMP 98.1; O2SAT 94
[2024-09-04 04:49] LABS: BASO % 0.1 % (0.0-1.0); HEMATOCRIT 34.6 % (36.0-47.0); HEMOGLOBIN 10.7 g/dl (12.0-15.5); LYMPH # 0.5 10^3/uL (1.5-5.0); LYMPH % 3.6 % (24.0-44.0); MEAN CORPUSCULAR HEMOGLOBIN 29.1 pg (27.0-33.0); MEAN CORPUSCULAR HGB CONC 30.9 g/dl (32.0-36.5); MONO # 0.2 10^3/uL (0.0-0.8); MONO % 1.7 % (2.0-8.0); NEUTROPHILS # 13.1 10^3/uL (1.5-8.5); NEUTROPHILS % 94.2 % (36.0-66.0); PLATELET COUNT, AUTOMATED 202 10^3/uL (150-450); RED BLOOD COUNT 3.68 10^6/uL (4.00-5.40); WHITE BLOOD COUNT 13.9 10^3/uL (4.0-10.0)
[2024-09-04 05:11] LABS: BLOOD UREA NITROGEN 21 MG/DL (9-23); CALCIUM LEVEL 8.3 MG/DL (8.3-10.6); CARBON DIOXIDE LEVEL 35 MMOL/L (20-31); CHLORIDE LEVEL 91 MMOL/L (98-107); CREATININE FOR GFR 0.47 MG/DL (0.55-1.30); GLOMERULAR FILTRATION RATE > 90.0 (>45); GLUCOSE, FASTING 159 MG/DL (74-106); POTASSIUM SERUM 4.1 MMOL/L (3.5-5.1); SODIUM LEVEL 134 MMOL/L (136-145)
[2024-09-04 07:52] VITALS: BP 157/82; TEMP 98; O2SAT 94
[2024-09-04] MEDS: FUROSEMIDE 20MG/2ML VIAL IV ONE (08:06)
[2024-09-04 13:34] VITALS: BP 130/74; TEMP 98.4; O2SAT 92
[2024-09-04 16:23] VITALS: BP 131/71; TEMP 98.7; O2SAT 95
[2024-09-04 20:09] VITALS: BP 132/75; TEMP 98.6; O2SAT 95
[2024-09-04] MEDS: SERTRALINE 100 MG TAB PO SCH (21:47)
[2024-09-05] VITALS (18 sets, daily range): BP systolic 118–153; BP diastolic 57–82; TEMP 97.1–98.7; O2SAT 93–99
[2024-09-05 04:38] LABS: BASO % 0.1 % (0.0-1.0); HEMATOCRIT 34.8 % (36.0-47.0); HEMOGLOBIN 10.3 g/dl (12.0-15.5); LYMPH # 0.4 10^3/uL (1.5-5.0); LYMPH % 2.6 % (24.0-44.0); MEAN CORPUSCULAR HEMOGLOBIN 28.6 pg (27.0-33.0); MEAN CORPUSCULAR HGB CONC 29.6 g/dl (32.0-36.5); MEAN CORPUSCULAR VOLUME 96.7 fl (80.0-96.0); MONO # 0.3 10^3/uL (0.0-0.8); MONO % 1.8 % (2.0-8.0); NEUTROPHILS # 13.1 10^3/uL (1.5-8.5); NEUTROPHILS % 94.9 % (36.0-66.0); PLATELET COUNT, AUTOMATED 207 10^3/uL (150-450); WHITE BLOOD COUNT 13.8 10^3/uL (4.0-10.0)
[2024-09-05 05:03] LABS: BLOOD UREA NITROGEN 20 MG/DL (9-23); CALCIUM LEVEL 8.4 MG/DL (8.3-10.6); CARBON DIOXIDE LEVEL 40 MMOL/L (20-31); CHLORIDE LEVEL 93 MMOL/L (98-107); CREATININE FOR GFR 0.39 MG/DL (0.55-1.30); GLOMERULAR FILTRATION RATE > 90.0 (>45); GLUCOSE, FASTING 115 MG/DL (74-106); POTASSIUM SERUM 4.8 MMOL/L (3.5-5.1); SODIUM LEVEL 135 MMOL/L (136-145)
[2024-09-05 11:00] LABS: TOTAL IRON BINDING CAPACITY 367 UG/DL (250-425)
[2024-09-05 11:01] LABS: VITAMIN B12 LEVEL 359 PG/ML (211-911)
[2024-09-05 11:02] LABS: IRON (FE) 29 UG/DL (50-170); PERCENT SATURATION 7.9 % (13.2-45.0)
[2024-09-05 11:06] LABS: FOLATE 6.95 NG/ML (>5.4)
[2024-09-05] MEDS: IPRATROPIUM 0.5MG/ALBUTEROL 2.5MG INH SOL UD 3ML NEB SCH (11:16)
[2024-09-05] MEDS: ATORVASTATIN 20 MG TAB PO SCH (12:05)
[2024-09-05 14:41] LABS: HEMATOCRIT 35.4 % (36.0-47.0); HEMOGLOBIN 10.6 g/dl (12.0-15.5); MEAN CORPUSCULAR HEMOGLOBIN 29.1 pg (27.0-33.0); MEAN CORPUSCULAR HGB CONC 29.9 g/dl (32.0-36.5); MEAN CORPUSCULAR VOLUME 97.3 fl (80.0-96.0); PLATELET COUNT, AUTOMATED 220 10^3/uL (150-450); RED BLOOD COUNT 3.64 10^6/uL (4.00-5.40)
[2024-09-05] MEDS: methylPREDNISolone 40MG 1ML VIAL IV SCH (17:30)
[2024-09-05] MEDS: LEVALBUTEROL 1.25 MG 0.5ML CONCENTRATE NEB INH PRN (17:32)
[2024-09-05 22:08] LABS: HEMATOCRIT 34.7 % (36.0-47.0); HEMOGLOBIN 10.1 g/dl (12.0-15.5); MEAN CORPUSCULAR HEMOGLOBIN 28.7 pg (27.0-33.0); MEAN CORPUSCULAR HGB CONC 29.1 g/dl (32.0-36.5); MEAN CORPUSCULAR VOLUME 98.6 fl (80.0-96.0); PLATELET COUNT, AUTOMATED 202 10^3/uL (150-450); RED BLOOD COUNT 3.52 10^6/uL (4.00-5.40); WHITE BLOOD COUNT 13.7 10^3/uL (4.0-10.0)
[2024-09-05] MEDS: FERRIC CARBOXYMALTOSE INJ 750 MG, VIAL MATE ADAPTER 1 EACH in NS 100 ML IV ONE (22:25)
[2024-09-06] VITALS (27 sets, daily range): BP systolic 118–137; BP diastolic 57–85; TEMP 97.6–98.2; O2SAT 92–100
[2024-09-06 04:24] LABS: HEMATOCRIT 33.5 % (36.0-47.0); HEMOGLOBIN 9.8 g/dl (12.0-15.5); LYMPH # 0.6 10^3/uL (1.5-5.0); LYMPH % 5.8 % (24.0-44.0); MEAN CORPUSCULAR HEMOGLOBIN 28.8 pg (27.0-33.0); MEAN CORPUSCULAR HGB CONC 29.3 g/dl (32.0-36.5); MEAN CORPUSCULAR VOLUME 98.5 fl (80.0-96.0); MONO # 0.6 10^3/uL (0.0-0.8); MONO % 5.6 % (2.0-8.0); NEUTROPHILS # 9.7 10^3/uL (1.5-8.5); NEUTROPHILS % 88.3 % (36.0-66.0); PLATELET COUNT, AUTOMATED 204 10^3/uL (150-450)
[2024-09-06 04:49] LABS: BLOOD UREA NITROGEN 21 MG/DL (9-23); CALCIUM LEVEL 8.7 MG/DL (8.3-10.6); CARBON DIOXIDE LEVEL 40 MMOL/L (20-31); CHLORIDE LEVEL 94 MMOL/L (98-107); CREATININE FOR GFR 0.45 MG/DL (0.55-1.30); GLOMERULAR FILTRATION RATE > 90.0 (>45); GLUCOSE, FASTING 91 MG/DL (74-106); POTASSIUM SERUM 4.5 MMOL/L (3.5-5.1); SODIUM LEVEL 138 MMOL/L (136-145)
[2024-09-06] MEDS: MORPHINE 10MG/0.5ML ORAL CONCENTRATE SOLUTION U/D SL PRN (09:10)
[2024-09-06 15:28] LABS: HEMATOCRIT 34.9 % (36.0-47.0); HEMOGLOBIN 10.1 g/dl (12.0-15.5); MEAN CORPUSCULAR HEMOGLOBIN 29.1 pg (27.0-33.0); MEAN CORPUSCULAR HGB CONC 28.9 g/dl (32.0-36.5); MEAN CORPUSCULAR VOLUME 100.6 fl (80.0-96.0); PLATELET COUNT, AUTOMATED 200 10^3/uL (150-450); RED BLOOD COUNT 3.47 10^6/uL (4.00-5.40); WHITE BLOOD COUNT 10.1 10^3/uL (4.0-10.0)
[2024-09-06 22:05] LABS: HEMATOCRIT 31.3 % (36.0-47.0); HEMOGLOBIN 9.3 g/dl (12.0-15.5); MEAN CORPUSCULAR HEMOGLOBIN 29.3 pg (27.0-33.0); MEAN CORPUSCULAR HGB CONC 29.7 g/dl (32.0-36.5); MEAN CORPUSCULAR VOLUME 98.7 fl (80.0-96.0); PLATELET COUNT, AUTOMATED 193 10^3/uL (150-450); RED BLOOD COUNT 3.17 10^6/uL (4.00-5.40); WHITE BLOOD COUNT 10.9 10^3/uL (4.0-10.0)
[2024-09-07 04:00] VITALS: BP 122/71; TEMP 97.6; O2SAT 93
[2024-09-07 05:37] LABS: HEMATOCRIT 33.9 % (36.0-47.0); HEMOGLOBIN 9.8 g/dl (12.0-15.5); LYMPH # 0.8 10^3/uL (1.5-5.0); LYMPH % 10.5 % (24.0-44.0); MEAN CORPUSCULAR HEMOGLOBIN 28.8 pg (27.0-33.0); MEAN CORPUSCULAR HGB CONC 28.9 g/dl (32.0-36.5); MEAN CORPUSCULAR VOLUME 99.7 fl (80.0-96.0); MONO # 0.5 10^3/uL (0.0-0.8); MONO % 6.4 % (2.0-8.0); NEUTROPHILS # 6.5 10^3/uL (1.5-8.5); NEUTROPHILS % 82.5 % (36.0-66.0); PLATELET COUNT, AUTOMATED 199 10^3/uL (150-450); WHITE BLOOD COUNT 7.8 10^3/uL (4.0-10.0)
[2024-09-07 06:02] LABS: BLOOD UREA NITROGEN 15 MG/DL (9-23); CARBON DIOXIDE LEVEL > 40.0 MMOL/L (20-31); CHLORIDE LEVEL 91 MMOL/L (98-107); CREATININE FOR GFR 0.46 MG/DL (0.55-1.30); GLOMERULAR FILTRATION RATE > 90.0 (>45); GLUCOSE, FASTING 77 MG/DL (74-106); POTASSIUM SERUM 4.7 MMOL/L (3.5-5.1); SODIUM LEVEL 139 MMOL/L (136-145)
[2024-09-07 07:39] VITALS: BP 125/65; TEMP 97.9; O2SAT 99
[2024-09-07] MEDS: PANTOPRAZOLE 40MG TAB (PROTONIX) PO SCH (08:32)
[2024-09-07 15:42] VITALS: BP 152/70; TEMP 98.7; O2SAT 97
[2024-09-07 18:35] VITALS: BP 122/75; TEMP 97.7; O2SAT 94
[2024-09-07 21:07] VITALS: BP 142/73; TEMP 97; O2SAT 95
[2024-09-08 05:04] VITALS: BP 147/83; TEMP 97.3; O2SAT 96
[2024-09-08 07:11] LABS: BASO % 0.1 % (0.0-1.0); EOS # 0.1 10^3/uL (0.0-0.5); EOS % 0.6 % (0.0-3.0); HEMATOCRIT 33.1 % (36.0-47.0); HEMOGLOBIN 9.4 g/dl (12.0-15.5); LYMPH # 1.2 10^3/uL (1.5-5.0); LYMPH % 15.8 % (24.0-44.0); MEAN CORPUSCULAR HEMOGLOBIN 28.4 pg (27.0-33.0); MEAN CORPUSCULAR HGB CONC 28.4 g/dl (32.0-36.5); MONO # 0.6 10^3/uL (0.0-0.8); NEUTROPHILS # 5.8 10^3/uL (1.5-8.5); PLATELET COUNT, AUTOMATED 190 10^3/uL (150-450); RED BLOOD COUNT 3.31 10^6/uL (4.00-5.40); WHITE BLOOD COUNT 7.8 10^3/uL (4.0-10.0)
[2024-09-08 07:36] LABS: BLOOD UREA NITROGEN 16 MG/DL (9-23); CALCIUM LEVEL 8.5 MG/DL (8.3-10.6); CARBON DIOXIDE LEVEL > 40.0 MMOL/L (20-31); CHLORIDE LEVEL 90 MMOL/L (98-107); CREATININE FOR GFR 0.35 MG/DL (0.55-1.30); GLOMERULAR FILTRATION RATE > 90.0 (>45); GLUCOSE, FASTING 86 MG/DL (74-106); POTASSIUM SERUM 4.5 MMOL/L (3.5-5.1); SODIUM LEVEL 137 MMOL/L (136-145)
[2024-09-08] MEDS: predniSONE 20 MG TAB PO SCH (08:21)
[2024-09-08] MEDS ORDERED: NITR4TASL SL (10:18)
[2024-09-08] MEDS ORDERED: ATOR40TA75 PO (10:18)
[2024-09-08] MEDS ORDERED: PANT40TA29 PO (10:18)
[2024-09-08 12:20] VITALS: BP 113/72; TEMP 97.5; O2SAT 94
== END 2024-09-08 19:35 | disposition home health service (06) | DRG 190 ==
LOC: M ED 18:06 → EDBD 18:06 → M ED INP 09-03 05:08 → M PCU 09-03 06:43 → M MS5PR 09-07 18:26
PROVIDERS: ADMIT Student in an Organized Health Care Education/Training Program; ATTEND Student in an Organized Health Care Education/Training Program
PROC: 30233N1 Transfusion of Nonautologous Red Blood Cells into Peripheral Vein, Percutaneous Approach (ICD-10-PCS; principal; 2024-09-03)
DX: J44.1 Chronic obstructive pulmonary disease with (acute) exacerbation (principal); J96.21 Acute and chronic respiratory failure with hypoxia; K55.21 Angiodysplasia of colon with hemorrhage; I21.4 Non-ST elevation (NSTEMI) myocardial infarction; I50.32 Chronic diastolic (congestive) heart failure; I24.89 Other forms of acute ischemic heart disease; D62 Acute posthemorrhagic anemia; F10.10 Alcohol abuse, uncomplicated; I95.9 Hypotension, unspecified; K21.9 Gastro-esophageal reflux disease without esophagitis; F17.210 Nicotine dependence, cigarettes, uncomplicated; Z99.81 Dependence on supplemental oxygen; G25.81 Restless legs syndrome; Z66 Do not resuscitate; Z79.82 Long term (current) use of aspirin; Z79.899 Other long term (current) drug therapy; Z79.52 Long term (current) use of systemic steroids; Z88.8 Allergy status to other drugs, medicaments and biological substances; I27.20 Pulmonary hypertension, unspecified; Z86.718 Personal history of other venous thrombosis and embolism